=== PATIENT | female | born 1955 | race Hispanic/Latino ===

== ENCOUNTER 2022-04-12 08:35 | Emergency (ER) | payer OTHER ==
--- OUTSIDE RECORDS SUMMARY | 2022-04-12 08:39 | XMS REPORT | Continuity of Care Document ---
:[address] [facility] t Address [address] [place] [address] Dr. Olivera [address] [place] [address] Care Team Providers Name Role Phone Pcp, Does Not Have A Primary Care Physician LANDY K.H. Attending Clinician Unavailable Landy ACOTSA, K.H. Attending Clinician Doctor Unassigned, Name Attending Clinician Unavailable Payers Payer Name Policy Type Policy Number Effective Date Expiration Date S ource Problems Condition Condition Condition Status Onset Resolution Last Treating Co mments Source Name Details Category Date Date Treatment Clinician Date No known No known Disease Unive rs active active ity of problems problems [facility] Allergies, Adverse Reactions, Alerts Allergy Allergy Status Severity Reaction(s) Onset Inactive Treating Comm ents Source Name Type Date Date Clinician NO KNOWN Drug Active Univers ALLERGIE Class ity of S [facility] Social History Social Habit Start Date Stop Date Quantity Comments Source History of Cigarette Smoker Universi ty of tobacco use [facility] Exposure to Not sure University SARS-CoV-2 [facility] (event) [place] Tobacco use and 2021-05-30 2021-05-30 Former user Universi ty of exposure 00:00:00 00:00:00 [facility] Sex [birth year] Universit y of 00:00:00 00:00:00 [facility] Smoking Status Start Date Stop Date Source Unknown if ever smoked Universit y [facility] Former smoker 2021-05-30 00:00:00 2021-05-30 00:00:00 Universi ty [facility] Medications Ordered Filled Start Stop Current Ordering Indication Dosage Frequency Signature Comments Components Source Medication Medication Date Date Medication? Clinician (SIG) Name Name gabapentin 2020-0 Yes 300mg Take 300 Un lamar ER 300 mg 8-25 mg by ity of tablet, 20:40: mouth [place] extended 15 daily. Medical release 24 Branch hr loratadine 2020-0 Yes 10mg Take 10 mg U nivers 10 mg 8-25 by mouth ity of tablet 20:40: daily. [address] gabapentin 2020-0 Yes 300mg Take 300 Un lamar ER 300 mg 8-25 mg by ity of tablet, 20:40: mouth [place] extended 15 daily. Medical release 24 Branch hr loratadine 2020-0 Yes 10mg Take 10 mg U nivers 10 mg 8-25 by mouth ity of tablet 20:40: daily. [address] gabapentin 2020-0 Yes 300mg Take 300 Un lamar ER 300 mg 8-25 mg by ity of tablet, 20:40: mouth [place] extended 15 daily. Medical release 24 Branch hr loratadine 2020-0 Yes 10mg Take 10 mg U nivers 10 mg 8-25 by mouth ity of tablet 20:40: daily. [address] gabapentin 2020-0 Yes 300mg Take 300 Un lamar ER 300 mg 8-25 mg by ity of tablet, 20:40: mouth [place] extended 15 daily. Medical release 24 Branch hr loratadine 2020-0 Yes 10mg Take 10 mg U nivers 10 mg 8-25 by mouth ity of tablet 20:40: daily. [address] gabapentin 2020-0 Yes 300mg Take 300 Un lamar ER 300 mg 8-25 mg by ity of tablet, 20:40: mouth [place] extended 15 daily. Medical release 24 Branch hr loratadine 2020-0 Yes 10mg Take 10 mg U nivers 10 mg 8-25 by mouth ity of tablet 20:40: daily. [address] aspirin 81 2020-0 Yes 81mg Take 81 mg U nivers mg EC 8-25 by mouth ity of tablet 20:39: daily. [address] aspirin 81 1-0 Yes 81mg Take 81 mg U nivers mg EC 8-25 by mouth ity of tablet 20:39: daily. [address] aspirin 81 1-0 Yes 81mg Take 81 mg U nivers mg EC 8-25 by mouth ity of tablet 20:39: daily. [address] aspirin 81 2021-0 Yes 81mg Take 81 mg U nivers mg EC 8-25 by mouth ity of tablet 20:39: daily. [address] aspirin 81 2020-0 Yes 81mg Take 81 mg U nivers mg EC 8-25 by mouth ity of tablet 20:39: daily. [address] tc 2020- No [id number] 43.2mCi 43.2 Univ ers 99m-tetrofo 06-11 millicurie i ty of smin 14:19: 14:19 , [place] ([facility]) 00 :00 Intravenou Medi ryan injection s, ONCE, 1 Bran ch 43.2 dose, Tue millicurie 06/11/21 at 0930, Routine tc 2020- No [id number] 16.4mCi 16.4 Unive rs 99m-tetrofo 06-11 millicurie i ty of smin 13:00: 13:04 , [place] ([facility]) 00 :00 Intravenou Medi ryan injection s, ONCE, 1 Bran ch 16.4 dose, Tue millicurie 06/11/21 at 0815, Routine aspirin 81 0 Yes 81mg Take 81 mg U nivers mg EC 7-15 by mouth ity of tablet 16:04: daily. [address] aspirin 81 2020-0 Yes 81mg Take 81 mg U nivers mg EC 7-15 by mouth ity of tablet 16:04: daily. [address] aspirin 81 2020-0 Yes 81mg Take 81 mg U nivers mg EC 7-15 by mouth ity of tablet 16:04: daily. [address] aspirin 81 2020-0 Yes 81mg Take 81 mg U nivers mg EC 7-15 by mouth ity of tablet 16:04: daily. [address] aspirin 81 2020-0 Yes 81mg Take 81 mg U nivers mg EC 7-15 by mouth ity of tablet 16:04: daily. [address] aspirin 81 2020-0 Yes 81mg Take 81 mg U nivers mg EC 7-15 by mouth ity of tablet 16:04: daily. [address] aspirin 81 2020-0 Yes 81mg Take 81 mg U nivers mg EC 7-15 by mouth ity of tablet 16:04: daily. [place] [facility] atorvastati 0 Yes 20mg Take 20 mg Univers n 20 mg 7-12 by mouth ity of tablet 00:00: daily. Medical Branch metFORMIN 0 Yes 500mg Take 500 Uni vers 500 mg 7-12 mg by ity of tablet 00:00: mouth 2 [place] (two) Medical times Branch daily. metoprolol 0 Yes 25mg Take 25 mg U nivers succinate 7-12 by mouth [place] of XL 25 mg 24 00:[place]: [place]. [place] ramipriL 0 Yes 2.5mg Take 2.5 Univ ers 2.5 mg 7-12 mg by ity of capsule 00:00: mouth daily. Medical Branch atorvastati 0 Yes 20mg Take 20 mg Univers n 20 mg 7-12 by mouth ity of tablet 00:00: daily. Medical Branch metFORMIN 0 Yes 500mg Take 500 Uni vers 500 mg 7-12 mg by ity of tablet 00:00: mouth [place] (two) Medical times [place] daily. metoprolol 0 Yes 25mg Take 25 mg U nivers succinate 7-12 by mouth [place] of XL 25 mg 24 00:00: [place]. [place] ramipriL 0 Yes 2.5mg Take 2.5 Univ ers 2.5 mg 7-12 mg by ity of capsule 00:00: mouth daily. Medical Branch atorvastati 0 Yes 20mg Take 20 mg Univers n 20 mg 7-12 by mouth ity of tablet 00:00: daily. Medical Branch metFORMIN 2020-0 Yes 500mg Take 500 Uni vers 500 mg 7-12 mg by ity of tablet 00:00: mouth [place] (two) Medical times [place] daily. metoprolol 2020-0 Yes 25mg Take 25 mg U nivers succinate 7-12 by mouth it[place] of XL 25 mg 24 00:00: [place]. [place] ramipriL 0 Yes 2.5mg Take 2.5 Univ ers 2.5 mg 7-12 mg by ity of capsule 00:00: mouth daily. Medical Branch atorvastati 2021-0 Yes 20mg Take 20 mg Univers n 20 mg 7-12 by mouth ity of tablet 00:00: daily. Medical Branch metFORMIN 0 Yes 500mg Take 500 Uni vers 500 mg 7-12 mg by ity of tablet 00:00: mouth 2 [place] (two) Medical times [place] daily. metoprolol 0 Yes 25mg Take 25 mg U nivers succinate 7-12 by mouth it[place] of XL 25 mg 24 00:00: [place]. [place] ramipriL 0 Yes 2.5mg Take 2.5 Univ ers 2.5 mg 7-12 mg by ity of capsule 00:00: mouth daily. Medical Branch atorvastati Yes 20mg Take 20 mg Univers n 20 mg 7-12 by mouth ity of tablet 00:00: daily. Medical Branch metFORMIN Yes 500mg Take 500 Uni vers 500 mg 7-12 mg by ity of tablet 00:00: mouth [place] (two) Medical times [place] daily. metoprolol Yes 25mg Take 25 mg U nivers succinate 7-12 by mouth it[place] of XL 25 mg 24 00:00: [place]. [place] ramipriL Yes 2.5mg Take 2.5 Univ ers 2.5 mg 7-12 mg by ity of capsule 00:00: mouth daily. Medical Branch atorvastati Yes 20mg Take 20 mg Univers n 20 mg 7-12 by mouth ity of tablet 00:00: daily. [place] [facility] metFORMIN 0 Yes 500mg Take 500 Uni vers 500 mg 7-12 mg by ity of tablet 00:00: mouth 2 [place] (two) Medical times [place] daily. metoprolol Yes 25mg Take 25 mg U nivers succinate 7-12 by mouth ity of XL 25 mg 24 00:00: [place]. [place] ramipriL 0 Yes 2.5mg Take 2.5 Univ ers 2.5 mg 7-12 mg by ity of capsule 00:00: mouth daily. Medical Branch atorvastati 0 Yes 20mg Take 20 mg Univers n 20 mg 7-12 by mouth ity of tablet 00:00: daily. Medical Branch metFORMIN 2020-0 Yes 500mg Take 500 Uni vers 500 mg 7-12 mg by ity of tablet 00:00: mouth [place] (two) Medical times [place] daily. metoprolol 2020-0 Yes 25mg Take 25 mg U nivers succinate 7-12 by mouth it[place] of XL 25 mg 24 00:00: [place]. [place] ramipriL 0 Yes 2.5mg Take 2.5 Univ ers 2.5 mg 7-12 mg by ity of capsule 00:00: mouth daily. Medical Branch atorvastati 0 Yes 20mg Take 20 mg Univers n 20 mg 7-12 by mouth ity of tablet 00:00: daily. Medical Branch metFORMIN 2020-0 Yes 500mg Take 500 Uni vers 500 mg 7-12 mg by ity of tablet 00:00: mouth [place] (two) Medical times [place] daily. metoprolol 2020-0 Yes 25mg Take 25 mg U nivers succinate 7-12 by mouth ity of XL 25 mg 24 00:00: [place]. [place] ramipriL 0 Yes 2.5mg Take 2.5 Univ ers 2.5 mg 7-12 mg by ity of capsule 00:00: mouth daily. Medical Branch atorvastati 2020-0 Yes 20mg Take 20 mg Univers n 20 mg 7-12 by mouth ity of tablet 00:00: daily. Medical Branch metFORMIN 2020-0 Yes 500mg Take 500 Uni vers 500 mg 7-12 mg by ity of tablet 00:00: mouth [place] (two) Medical times [place] daily. metoprolol 2020-0 Yes 25mg Take 25 mg U nivers succinate 7-12 by mouth it[place] of XL 25 mg 24 00:00: [place]. [place] ramipriL 2020-0 Yes 2.5mg Take 2.5 Univ ers 2.5 mg 7-12 mg by ity of capsule 00:00: mouth daily. Medical Branch atorvastati 2020-0 Yes 20mg Take 20 mg Univers n 20 mg 7-12 by mouth ity of tablet 00:00: daily. Medical Branch metFORMIN 2021-0 Yes 500mg Take 500 Uni vers 500 mg 7-12 mg by ity of tablet 00:00: mouth [place] (two) Medical times Branch daily. metoprolol 0 Yes 25mg Take 25 mg U nivers succinate 7-12 by mouth ity of XL 25 mg 24 00:00: [place]. [place] ramipriL Yes 2.5mg Take 2.5 Univ ers 2.5 mg 7-12 mg by ity of capsule 00:00: mouth 00 daily. Medical Branch atorvastati Yes 20mg Take 20 mg Univers n 20 mg 7-12 by mouth ity of tablet 00:00: daily. [place] [facility] metFORMIN Yes 500mg Take 500 Uni vers 500 mg 7-12 mg by ity of tablet 00:00: mouth [place] (two) Medical times Branch daily. metoprolol Yes 25mg Take 25 mg U nivers succinate 7-12 by mouth ity of XL 25 mg 24 00:00: [place]. [place] tablet [place] ramipriL Yes 2.5mg Take 2.5 Univ ers 2.5 mg 7-12 mg by ity of capsule 00:00: mouth daily. Medical Branch atorvastati Yes 20mg Take 20 mg Univers n 20 mg 7-12 by mouth ity of tablet 00:00: daily. [place] [facility] metFORMIN Yes 500mg Take 500 Uni vers 500 mg 7-12 mg by ity of tablet 00:00: mouth [place] (two) Medical times Branch daily. metoprolol 0 Yes 25mg Take 25 mg U nivers succinate 7-12 by mouth it[place] of XL 25 mg 24 00:00: [place]. [place] 00 [place] [facility] ramipriL Yes 2.5mg Take 2.5 Univ ers 2.5 mg 7-12 mg by ity of capsule 00:00: mouth daily. Medical Branch Vital Signs Vital Name Observation Time Observation Value Comments Source Systolic blood 2021-07-10 20:39:00 123 mm[Hg] Univer sity of pressure [facility] [place] [facility] Diastolic blood 2021-07-10 20:39:00 73 mm[Hg] Unive rsity of pressure [facility] Heart rate 2021-07-10 20:39:00 77 /min Universi ty of [place] Medical [place] Body weight 2021-07-10 20:39:00 73.483 kg Universi ty of [facility] BMI 2021-07-10 20:39:00 28.70 kg/m2 Universi ty of [facility] Oxygen saturation in 2021-07-10 20:39:00 96 /min University of Arterial blood by [facility] Pulse oximetry Branch Systolic blood 2021-05-30 15:34:00 108 mm[Hg] Univer sity of pressure [facility] Diastolic blood 2021-05-30 15:34:00 65 mm[Hg] Unive rsity of pressure [facility] Heart rate 2021-05-30 15:34:00 73 /min Universi ty of [facility] Respiratory rate 2021-05-30 15:34:00 20 /min [facility] Body height 2021-05-30 15:34:00 160 cm Universi ty [facility] [place] [facility] Body weight 2021-05-30 15:34:00 74.118 kg Universi ty [facility] [place] [facility] BMI 2021-05-30 15:34:00 28.95 kg/m2 Universi ty [facility] [place] [facility] Oxygen saturation in 2021-05-30 15:34:00 96 /min University of Arterial blood by [facility] Pulse oximetry Branch Procedures Procedure Date / Time Performed Performing Clinician Missy victoria NM MYOCARDIUM 2021-06-11 15:15:00 Deja Bill [facility] PERFUSION STRESS AND Medical Bra nch REST NM MYOCARDIUM 2021-06-11 15:15:00 Deja Bill [facility] PERFUSION STRESS AND Medical Bra nch REST NM MYOCARDIUM 2021-06-11 15:15:00 Deja Bill [facility] PERFUSION STRESS AND Medical Bra nch REST NM MYOCARDIUM 2021-06-11 15:15:00 Deja Bill [facility] PERFUSION STRESS AND Medical Bra nch REST ASSIGNMENT OF BENEFITS 2021-05-30 15:08:25 Doctor Unassigned, No [facility] Encounters Start End Encounter Admission Attending Care Care Encounter Source Date/Time Date/Time Type Type Clinicians Facility Department ID 2022-07-10 2022-07-10 Outpatient [place] [id number] Univers 15:00:00 15:00:00 [facility] [id number] [id number] Univers 15:24:14 16:02:21 Visit Sendlakeisha Price [id number] ity [place] 4[place]2.7.2.686 [place] [phone] Vt dicms nal [address] [place] [address] 2021-07-10 2021-07-10 Outpatient [place] [id number] Univers 15:30:00 15:30:00 [facility]-07-10 2021-07-10 Outpatient [place] [id number] Univers 15:30:00 15:30:00 SENDIL [id number] [facility] 2021-07-10 2021-07-10 [facility] [id number] Univers 00:00:00 00:00:00 (Out) Deja Price [id number] ity [facility] [id number] [place] [id number] [address] 2021-06-18 2021-06-18 Outpatient [place] [id number] Univers 16:00:00 16:00:00 [facility] [id number] [facility] 2021-06-18 2021-06-18 Outpatient [place] [id number] Univers 16:00:00 16:00:00 [facility]-06-11 2021-06-11 [facility] [id number] Univers 07:43:37 23:59:00 Encounter Deja Price [id number] it[place] of [place] [id number] [place] [id number] [facility] 805 Branch 2021-06-11 2021-06-11 [facility] [id number] Univers 07:43:25 23:59:00 Encounter Sendil Choco Price [id number] ity of [place] 4.2.7.2.686 [facility] [id number] [facility] 805 [place] 2021-06-11 2021-06-11 [facility] [id number] Univers 07:43:12 23:59:00 Encounter Sendil Choco Price [id number] ity of [place] [id number] [place] [address] [phone] [place] 853995 [place] 2021-06-11 2021-06-11 Outpatient [place] [id number] Univers 08:30:00 08:30:00 SENDIL ity [facility] 2021-06-11 2021-06-11 Outpatient [place] [id number] Univers 08:00:00 08:00:00 SENDIL [id number] ity [facility] 2021-06-11 2021-06-11 [facility] [id number] Univers 07:42:57 07:42:57 Encounter Deja Price [id number] ity of [place] 4.2.7.2.686 [facility] [id number] [facility] 805 [place] 2021-05-30 2021-05-30 Office [facility] [id number] Univers 10:10:05 11:17:32 Visit Deja Price [id number] ity of [place] [id number] [facility] Professio [id number] Vt dical nal 059 Branch [facility] 2021-05-30 2021-05-30 Outpatient [place] [id number] Univers 10:30:00 10:30:00 SENDIL ity [facility] 2021-05-30 2021-05-30 Orders Doctor ROBERT 1.2.840.114 [id number] 00:00:00 00:00:00 Only Unassigned, CHELE 350.1.13.10 ity of [facility] 4.2.7.2.686 David as [id number] [address] Results Test Description Test Time Test Comments Results Result Comments Source LIPID PANEL 2021-12-02 00:17:06 Test Item Value Reference Range Interpretation Comme nts CHOLESTEROL (test code = 2210) 152 MG/DL <200 TRIGLYCERIDES (test code = 2232) 110 MG/DL <150 HDL CHOLESTEROL (test code = 58 MG/DL >39 2219) CALC LDL CHOL (test code = 2237) 74 MG/DL <100 NOTE: CALCULATED LDL IS BASED ON RANJAN-LARRY METHOD WHICHINCLUDES A DJUSTABLE TRIGLYCERIDE:VL DL CHOLESTEROL RATIO.THIS FACT OR VARIES BY MEASURED TRIGLY CERIDE AND NON-HDLCHOLESTE ROL CONCENTRATIONS WITH INCREASED CALCULATED LDL SEENIN HIGHER T RIGLYCERIDE OR LOWER NON-HDL S PECIMENS. FOR MOREINFORMATION , SEE CLIENT ANNOUNCEMENT AT [email or web address] RISK RATIO LDL/HDL (test code = 1.28 RATIO <3.22 2237) COMPREHENSIVE METABOLIC [id number] 00:17:06 Test Item Value Reference Range Interpretation Comments GLUCOSE (test code = 127 MG/DL 70-99 H 2216) BUN (test code = 16 MG/DL 8-23 2207) CREATININE (test 0.73 MG/DL 0.60-1.30 code = 2214) eGFR (2020 CKD-EPI) 91 >60 (test code = 63958) ML/MIN/1.73 CALC BUN/CREAT (test 22 RATIO 6-28 code = 2235) SODIUM (test code = 144 MEQ/L 570-654 7213) POTASSIUM (test code 4.6 MEQ/L 3.5-5.4 = 2227) CHLORIDE (test code 105 MEQ/L 95-107 = 221) CARBON DIOXIDE (test 27 MEQ/L 19-31 code = 2206) CALCIUM (test code = 9.8 MG/DL 8.5-10.5 2208) PROTEIN, TOTAL (test 7.5 G/DL 6.1-8.3 code = 2229) ALBUMIN (test code = 4.5 G/DL 3.5-5.2 2200) CALC GLOBULIN (test 3.0 G/DL 1.9-3.7 code = 2240) CALC A/G RATIO (test 1.5 RATIO 1.0-2.6 code = 2234) BILIRUBIN, TOTAL 0.4 MG/DL See_Comment [Automated message] (test code = 220) The syste m which generated this result transmitted ref erence range: <=1.2. T he reference range was not used to int erpret this result as normal/abnormal . ALKALINE PHOSPHATASE 70 U/L 40-140 (test code = 220) AST (test code = 17 U/L 9-40 2217) ALT (test code = 19 U/L 5-40 UNLE SS 2218) OTHERWISE INDIC ATED, ALL TESTING PER FORMED ATCLINICAL PATH [facility]. [address] [place] [address] LABORATORY DIRE CTOR: MARINA OTTO M.D. CLIA NUMBER [id number] CAP ACCREDITATION N O. [id number] HEMOGLOBIN [id number] 05:27:33 Test Item Value Reference Range Interpretation Comments HEMOGLOBIN A1c (test 6.7 % 4.2-5.6 H CROATIAN DIABETES code = 53860) ASSOCIATION IDELINES FOR HGB A1C: PREDIABETES/INC REASED RISK . . . . . . . 5.7 -6.4% DIAGNOSIS OF D IABETES . . . . . . . . . > =6.5% WITH CONFIRM ATION OR APPROPRIATE SYM PTOMS NOTE: ASSAY MAY BE AFFECTED BY HEMOGLOBINOP ATHIES (SICKLE KIM L ANEMIA, S-C DISEASE, OTHERS ) OR ARTIFICIALLY LO WERED BY DECREASED RED C ELL SURVIVAL (HEMOLYTIC ANEM IAS, BLOOD LOSS, ETC.) . CONSIDER ALTERNATE TESTI NG OR LABORATORY CONS ULTATION. CBC W/AUTO DIFF WITH [id number] 03:37:49 Test Item Value Reference Range Interpretation Comments WBC (test code = 4.0 K/UL 3.5-11.0 1001) RBC (test code = 4.33 M/UL 3.80-5.40 1002) HEMOGLOBIN (test code 13.3 G/DL 11.5-15.5 = 1003) HEMATOCRIT (test code 38.6 % 34.0-45.0 = 1004) MCV (test code = 89.1 fL 80.0-99.0 1005) MCH (test code = 30.7 PG 25.0-33.0 1006) MCHC (test code = 34.5 G/DL 31.0-36.0 1007) RDW (test code = 12.4 % 11.5-15.0 1038) NEUTROPHILS (test 46.9 % code = 1008) LYMPHOCYTES (test 40.1 % code = 1010) MONOCYTES (test code 7.9 % = 1011) EOSINOPHILS (test 3.7 % code = 1012) BASOPHILS (test code 1.2 % = 1013) IMMATURE GRANYLOCYTES 0.2 % (test code = 1036) NUCLEATED RBCS (test 0.0 /100 See_Comment [Autom ated code = 1065) WBC'S message] The sy stem which generated this result transmitted reference range : 0.0. The refere nce range was not u sed to interpret th is result as normal/abnormal . PLATELET COUNT (test 250 K/UL 130-400 code = 1015) ABSOLUTE NEUTROPHILS 1.89 K/UL 1.50-7.50 (test code = 1066) ABSOLUTE LYMPHOCYTES 1.62 K/UL 1.00-4.00 (test code = 1067) ABSOLUTE MONOCYTES 0.32 K/UL 0.20-1.00 (test code = 1068) ABSOLUTE EOSINOPHILS 0.15 K/UL 0.00-0.50 (test code = 1040) ABSOLUTE BASOPHILS 0.05 K/UL 0.00-0.20 (test code = 1069) ABS IMMATURE 0.01 K/UL 0.00-0.10 GRANULOCYTES (test code = 1020) ABS NUCLEATED RBCS 0.00 K/UL 0.00-0.11 (test code = 58893) NM MYOCARDIUM PERFUSION STRESS AND [id number] 21:38:161. ?The patient's electrocardiogram is nonischemic.2. ?The patient's clinical response is asymptomatic for angina. 3. ?Overall left ventricular systolic function is normal.4. ?SPECT imaging reveals normal uptake of radiopharmaceutical agents inall of wall segments in both stress and rest images5. ?No reversible defect noted. I was present for the stress portion of the study. [facility] Lexiscan Stress Test Report PROCEDURE:After obtaining witnessed informed consent, patient underwent a Regadenosonnuclear stress test using a one-day protocol. The patient was administered0.4 mg. Regadenoson over 10 seconds intravenously. Myocardial perfusionSPECT imaging was performed at rest after the intravenous injection of 16.4 mCi of Technetium 99m Tetrofosmin. During the stress portion of the test43.2 mCi of Technetium 99m Tetrofosmin was injected intravenously at 10secondsafter the Regadenoson infusion at peak pharmacologic effect. Thestress gated SPECT study was acquired. Both stress and rest images wereacquired with patient being supine. Images were processed according to ASNguidelines. Short, horizontal long, long axis slices, raw data cines, polarplot, and wall motion analysis were reviewed. FINDINGS:* ?During the Regadenoson administration, no symptoms were noted. * ?Please refer ECG report for full details. * ?The overall technical quality of the study is good. ?* ?Raw cine data reveals no significant abnormality. * ?SPECT imaging reveals normal uptake of radiopharmaceutical agents in allof wall segments in both stress and rest images. * ?Post-stress LV end-diastolic volume is 47 ml and LV end-systolic volumeis 13 ml. * ?The left ventricle ejection fraction is calculated to be 73 % at stressand 71% at rest. * ?Regional wall motion analysis of the left ventricle reveals is normal. * ?TID: 1.05 [facility], Radiant Results Inft User - 06/11/2021 4:39 PM CDT [facility] Lexiscan Stress Test ReportPROCEDURE:After obtaining witnessed informed consent, patient underwent a Regadenosonnuclear stress test using a one-day protocol. The patient was administered0.4 mg. Regadenoson over 10 seconds intravenously. Myocardial perfusionSPECT imaging was performed at rest after the intravenous injection of 16.4 mCi of Technetium 99m Tetrofosmin. During the stress portion of the test43.2mCi of Technetium 99m Tetrofosmin was injected intravenously at 10seconds after the Regadenoson infusion at peak pharmacologic effect. Thestress gated SPECT study was acquired. Both stress and rest images wereacquired with patient being supine. Images were processed according to [facility]EN[facility]idelines. Short, horizontal long, long axis slices, raw data cines, polarplot, and wall motion analysis were reviewed. FINDINGS:* During the Regadenoson administration, no symptoms were noted. * Please refer ECG report for full details. * The overall technical quality of the study is good. * Raw cine data revealsno significant abnormality. * SPECT imaging reveals normal uptake of radiopharmaceutical agents in allof wall segments in both stress and rest images. * Post-stress LV end-diastolic volume is 47 ml and LV end-systolic volumeis 13 ml. * The left ventricle ejection fraction is calculated to be 73 % at stressand 71% at rest. * Regional wall motion analysis of the left ventricle reveals is normal. *TID: [id number]. The patient's electrocardiogram is nonischemic.2. The patient's clinical response is asymptomatic for angina. 3. Overall left ventricular systolic function is normal.4. SPECT imaging reveals normal uptake of radiopharmaceutical agents inall of wall segments in both stress andrest images5. No reversible defect noted. I was present for the stress portion of the study.[facility]
[2022-04-12 10:10] LABS: Absolute Lymphocytes (CBC) 1.6 K/uL (0.7-4.9); Hematocrit 37.5 % (36.0-45.0); Lymphocytes % 24.7 % (15.3-44.8); RBC Red Blood Cell Count 4.24 M/uL (3.86-4.86)
[2022-04-12 10:30] LABS: Urine Bacteria <20 /HPF (<20); Urine RBC <5 /HPF (NONE SEEN)
[2022-04-12 10:31] LABS: Albumin 3.7 g/dL (3.4-5.0); Bilirubin Total 0.4 mg/dL (0.2-1.0); Potassium 3.9 mmol/L (3.5-5.1); Protein, Total 7.5 g/dL (6.4-8.2)
--- NOTE | 2022-04-12 11:17 | RAD REPORT ---
EXAM DESCRIPTION: CT - Stone Protocol - 04/12/2022 11:01 am CLINICAL HISTORY: Abdominal pain. Back pain COMPARISON: None. TECHNIQUE: Computed axial tomography of the abdomen pelvis was obtained without oral or IV contrast. Lack of IV and oral contrast limits evaluation of solid organs, bowel, and vessels. Coronal reformat christian images were obtained and reviewed. All CT scans are performed using dose optimization technique as appropriate and may include automated exposure control or mA/KV adjustment according to patient size. FINDINGS: A renal calculus is not seen. An ureteral calculus is not noted. A bladder calculus is not present. The liver, spleen, pancreas and adrenals appear grossly normal There is no evidence of diverticulitis. The appendix appears normal Small umbilical hernia. Hysterectomy. 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 Moderate amount stool within the colon IMPRESSION: Negative for a genitourinary calculus
[2022-04-12] MEDS ORDERED: IBUPROFEN 400 MG TAB ONE (12:08)
[2022-04-12] MEDS ORDERED: LIDOCAINE 4% PATCH ONE (12:08)
--- NOTE | 2022-04-12 13:05 | ER ---
Nurse's Notes [facility] Name: Nataliia Singer Age: 66 yrs Sex: Female : 1955 Arrival Date: 04/12/2022 Time: 08:41 Bed 11 Private MD: Diagnosis: Low back pain-left Presentation: 04/12 09:17 Chief complaint: Patient states: Left bicep tingling since yesterday "Feels like I jl7 slept on it." Left low back pain, non radiating since yesterday. Coronavirus screen: At this time, the client does not indicate any symptoms associated with coronavirus-19. Ebola Screen: No symptoms or risks identified at this time. Initial Sepsis Screen: Does the patient meet any 2 criteria? No. Patient's initial sepsis screen is negative. Does the patient have a suspected source of infection? No. Patient's initial sepsis screen is negative. Risk Assessment: Do you want to hurt yourself or someone else? Patient reports no desire to harm self or others. Onset of symptoms was April 11, 2022. 09:17 Method Of Arrival: Ambulatory [facility] 09:17 Acuity: CHRISTINA 3 jl7 Triage Assessment: 09:21 General: Appears in no apparent distress. uncomfortable, Behavior is calm, cooperative, jl7 appropriate for age. Pain: Complains of pain in left low back Pain does not radiate. Pain currently is 9 out of 10 on a pain scale. Historical: - Allergies: 09:21 No Known Allergies; jl7 - PMHx: 09:21 Hypertensive disorder; Diabetes mellitus; jl7 - Immunization history:: Adult Immunizations unknown. - Social history:: Smoking status: unknown. Screenin:06 Abuse screen: Denies threats or abuse. Denies injuries from another. Nutritional ld1 screening: No deficits noted. Tuberculosis screening: No symptoms or risk factors identified. Fall Risk None identified. Assessment: 12:06 General: Appears in no apparent distress. comfortable, Behavior is calm, cooperative, ld1 appropriate for age. Pain: Complains of pain in left low back Pain does not radiate. Pain currently is 8 out of 10 on a pain scale. Quality of pain is described as throbbing. Neuro: Level of Consciousness is awake, alert, obeys commands, Oriented to person, place, time, situation. Cardiovascular: Capillary refill < 3 seconds Patient's skin is warm and dry. Respiratory: Airway is patent Respiratory effort is even, unlabored. GI: Abdomen is flat, non-distended. : No signs and/or symptoms were reported regarding the genitourinary system. EENT: No signs and/or symptoms were reported regarding the EENT system. Derm: No signs and/or symptoms reported regarding the dermatologic system. Musculoskeletal: Reports pain in back. Vital Signs: 09:17 BP 134 / 81; Pulse 73; Resp 17; Temp 97.3; Pulse Ox 98% ; Weight 78.02 kg; Pain 9/10; jl7 09:45 BP 134 / 84; Pulse 75; Resp 16; Pulse Ox 100% on R/A; kj1 12:06 BP 129 / 83; Pulse 74; Resp 18; Pulse Ox 100% on R/A; ld1 ED Course: 08:41 Patient arrived in ED. am2 09:21 Triage completed. jl7 09:21 Arm band placed on right wrist. jl7 09:24 Radames Alexander PA is PHCP. cp 09:24 Romero Bartlett MD is Attending Physician. cp 09:45 Initial lab(s) drawn, by me, sent to lab. Inserted saline lock: 20 gauge in left kj1 antecubital area, using aseptic technique. Blood collected. 09:49 Urine Microscopic Only Sent. mb7 11:02 CT Stone Protocol In Process Unspecified. EDMS 12:00 Nissa Shaw, RN is Primary Nurse. ld1 12:06 Patient has correct armband on for positive identification. Placed in gown. Bed in low ld1 position. Call light in reach. Side rails up X2. Pulse ox on. NIBP on. drum worker on. Door closed. Noise minimized. Warm blanket given. 12:06 No provider procedures requiring assistance completed. ld1 13:28 IV discontinued, intact, bleeding controlled, No redness/swelling at site. ld1 Administered Medications: 12:05 Drug: Lidoderm Patch 5 % (700 mg/patch) 1 patches Route: Topical; Site: affected area; ld1 12:11 Follow up: Response: No adverse reaction ld1 12:05 Drug: Ibuprofen 800 mg Route: PO; ld1 12:12 Follow up: Response: No adverse reaction ld1 Medication: 12:06 VIS not applicable for this client. ld1 Outcome: 13:04 Discharge ordered by . kendell 13:28 Discharged to home ambulatory. ld1 13:28 Condition: stable 13:28 Discharge instructions given to patient, Instructed on discharge instructions, follow up and referral plans. medication usage, Demonstrated understanding of instructions, follow-up care, medications, Prescriptions given X 3. 13:28 Patient left the ED. ld1 Signatures: Dispatcher [employer] EDMS Radames Alexander PA PA cp Leal, Jahala RN RN jl7 Chanelle Manjarrez Kandis kj1 Nissa Shaw RN RN ld1 [place] mb7 Corrections: (The following items were deleted from the chart) 09:59 09:59 BP 134 / 84; Pulse 75bpm; Resp 16bpm; Pulse Ox 100% RA; kj1 kj1
--- NOTE | 2022-04-12 13:05 | EDPHYS ---
Physician Documentation [facility] Name: Nataliia Singer Age: 66 yrs Sex: Female : 1955 Arrival Date: 04/12/2022 Time: 08:41 Bed 11 Private MD: ED Physician Romero Bartlett HPI: 04/12 09:25 This 66 yrs old Female presents to ER via Ambulatory with complaints of Flank Pain, Low cp Back Pain. 04/11 09:25 Associated signs and symptoms: Pertinent negatives: diarrhea, dizziness, dysuria, cp fever, urinary frequency, hematuria, pain radiating to the lower extremities, vomiting. Severity of pain: in the emergency department the pain is unchanged despite home interventions. 04/12 09:25 The patient complains of pain in the left low back. The pain does not radiate. Onset: cp The symptoms/episode began/occurred yesterday. 09:25 Patient reports tingling in left bicep yesterday that is now resolved. Denies trauma. cp Historical: - Allergies: 09:21 No Known Allergies; jl7 - PMHx: 09:21 Hypertensive disorder; Diabetes mellitus; jl7 - Immunization history:: Adult Immunizations unknown. - Social history:: Smoking status: unknown. ROS: 09:30 Back: Positive for pain at rest, pain with movement, of the left low back, Negative for cp radiated pain. 09:30 Eyes: Negative for injury, pain, redness, and discharge. cp 09:30 Constitutional: Negative for chills, fever, poor PO intake. 09:30 Neck: Negative for pain with movement, pain at rest, stiffness. 09:30 Cardiovascular: Negative for chest pain. 09:30 Respiratory: Negative for cough, shortness of breath, wheezing. 09:30 Abdomen/GI: Negative for abdominal pain, vomiting, diarrhea, constipation. 09:30 : Negative for urinary symptoms. 09:30 Skin: Negative for rash. 09:30 Neuro: Negative for altered mental status, headache, numbness, weakness. 09:30 All other systems are negative. Exam: 09:35 Constitutional: The patient appears in no acute distress, alert, awake, non-toxic, well cp developed, well nourished. 09:35 Head/Face: Normocephalic, atraumatic. cp 09:35 Neck: ROM/movement: is normal, is supple, without pain, no range of motions limitations. 09:35 Chest/axilla: Inspection: normal. 09:35 Cardiovascular: Rate: normal, Rhythm: regular, Edema: is not appreciated, JVD: is not appreciated. 09:35 Respiratory: the patient does not display signs of respiratory distress, Respirations: normal, no use of accessory muscles, no retractions, labored breathing, is not present, Breath sounds: are clear throughout, no decreased breath sounds, no stridor, no wheezing. 09:35 Abdomen/GI: Inspection: abdomen appears normal, Palpation: abdomen is soft and non-tender, in all quadrants. 09:35 Back: pain, that is mild, of the left low back, ROM is painful, with flexion, mild. CVA tenderness, is absent, vertebral tenderness, is not appreciated. 09:35 Skin: cellulitis, is not appreciated, no rash present. 09:35 Neuro: Motor: moves all fours, strength is normal, Sensation: is normal, Gait: is steady, at a normal pace, without difficulty. Vital Signs: 09:17 BP 134 / 81; Pulse 73; Resp 17; Temp 97.3; Pulse Ox 98% ; Weight 78.02 kg; Pain 9/10; jl7 09:45 BP 134 / 84; Pulse 75; Resp 16; Pulse Ox 100% on R/A; kj1 12:06 BP 129 / 83; Pulse 74; Resp 18; Pulse Ox 100% on R/A; ld1 MDM: 09:35 Differential diagnosis: nephrolithiasis, pyelonephritis, UTI, strain. cp 12:07 Patient medically screened. cp 13:04 Data reviewed: vital signs, nurses notes, lab test result(s), radiologic studies, CT cp scan. 13:04 Counseling: I had a detailed discussion with the patient and/or guardian regarding: the cp historical points, exam findings, and any diagnostic results supporting the discharge/admit diagnosis, lab results, radiology results, the need for outpatient follow up, a family practitioner, to return to the emergency department if symptoms worsen or persist or if there are any questions or concerns that arise at home. 13:04 Response to treatment: the patient's symptoms have markedly improved after treatment, cp and as a result, I will discharge patient. 04/12 09:25 Order name: CBC with Diff; Complete Time: 12:07 cp 04/12 12:07 Interpretation: Reviewed. cp 04/12 09:25 Order name: CMP; Complete Time: 12:07 cp 04/12 12:07 Interpretation: Normal except: CL 109; GLUC 128; GFR 83; AST 11; A/G 1.0; GLOB 3.8. cp 04/12 09:25 Order name: Lipase; Complete Time: 12:07 cp 04/12 09:25 Order name: Urine Microscopic Only; Complete Time: 12:07 cp 04/12 09:25 Order name: CT Stone Protocol; Complete Time: 12:07 cp 04/12 09:25 Order name: IV Saline Lock; Complete Time: 11:57 cp 04/12 09:25 Order name: Labs collected and sent; Complete Time: 11:57 cp 04/12 09:25 Order name: Urine Dipstick-Ancillary (obtain specimen); Complete Time: 09:49 cp Administered Medications: 12:05 Drug: Lidoderm Patch 5 % (700 mg/patch) 1 patches Route: Topical; Site: affected area; ld1 12:11 Follow up: Response: No adverse reaction ld1 12:05 Drug: Ibuprofen 800 mg Route: PO; ld1 12:12 Follow up: Response: No adverse reaction ld1 Disposition: 15:24 Co-signature as Attending Physician, Romero Bartlett MD I agree with the assessment and kdr plan of care. Disposition Summary: 04/12/22 13:04 Discharge Ordered Location: Home cp Problem: new cp Symptoms: have improved cp Condition: Stable cp Diagnosis - Low back pain - left cp Followup: cp - With: Private Physician - When: 2 - 3 days - Reason: Recheck today's complaints Discharge Instructions: - Discharge Summary Sheet cp - Acute Back Pain, Adult cp - Heat Therapy cp - Back Exercises cp Forms: - Medication Reconciliation Form cp - Thank You Letter cp - Antibiotic Education cp - Prescription Opioid Use cp Prescriptions: - Lidoderm 5 % Topical adhesive patch,medicated - apply 1 patch by TOPICAL route once daily; 20 patch; Refills: 0, Product cp Selection Permitted - Cyclobenzaprine 10 mg Oral Tablet - take 1 tablet by ORAL route every 8 hours As needed; 20 tablet; Refills: 0, cp Product Selection Permitted - Diclofenac Sodium 75 mg Oral tablet,delayed release (DR/EC) - take 1 tablet by ORAL route 2 times per day; 20 tablet; Refills: 0, Product cp Selection Permitted Signatures: Dispatcher [employer] Romero Blair MD MD kdr Page, Corey, PA PA cp Leal, Jahala RN RN jl7 Nissa Shaw RN RN ld1 Corrections: (The following items were deleted from the chart) 04/13 13:23 13:21 Back: Positive for pain at rest, pain with movement, of the left low back, cp cp
[2022-04-12 13:33] VITALS: TEMP 97.3
[2022-04-12 13:34] VITALS: O2SAT 100
[2022-04-12 13:35] VITALS: BP 129/83
== END 2022-04-12 13:28 | disposition home or self-care (01) ==
LOC: ER 08:35
DX: M54.50 Low back pain, unspecified (principal); E11.9 Type 2 diabetes mellitus without complications; I10 Essential (primary) hypertension
CPT/HCPCS: 85025; 36415; 81015; 83690; 80053; 76377; 74176; 99284; J2001

== ENCOUNTER 2022-12-26 12:38 | Emergency (ER) | payer OTHER ==
--- OUTSIDE RECORDS SUMMARY | 2022-12-26 12:56 | XMS REPORT | Continuity of Care Document ---
:1955 Author Organization [facility] t Address [address] [place] [address] Care Team Providers Name Role Phone PCP, PATIENT DOES NOT HAVE A Primary Care Physician ROBYN Del Angel Attending Clinician Unavailable Robyn Bill MD Attending Clinician Doctor Unassigned, Jewell Attending Clinician Unavailable Payers Payer Name Policy Type Policy Number Effective Date Expiration Date Suraj chicas MEDICARE PART A [id number] 2021 \T\ B 00:00:00 Problems Condition Condition Condition Status Onset Resolution Last Treating Co mments Source Name Details Category Date Date Treatment Clinician Date No known No known Disease Unive rs active active ity of problems problems [facility] Allergies, Adverse Reactions, Alerts Allergy Allergy Status Severity Reaction(s) Onset Inactive Treating Comm ents Source Name Type Date Date Clinician NO KNOWN Drug Active Univers ALLERGIE Class ity of S [facility] Social History Social Habit Start Date Stop Date Quantity Comments Source History of Cigarette Smoker Universi ty of tobacco use [facility] Exposure to Not sure University SARS-CoV-2 [facility] [place] [facility] (event) [place] Tobacco use and 2021-05-30 2021-05-30 Former user Universi ty of exposure 00:00:00 00:00:00 [facility] Sex [birth year] Universit [facility] of 00:00:00 00:00:00 [facility] Smoking Status Start Date Stop Date Source Unknown if ever smoked Universit y [facility] Former smoker 2021-05-30 00:00:00 2021-05-30 00:00:00 [facility] [place] [facility] Medications Ordered Filled Start Stop Current Ordering Indication Dosage Frequency Signature Comments Components Source Medication Medication Date Date Medication? Clinician (SIG) Name Name TAKE 1 2021-11 No CAPSULE BY 0-04 MOUTH THREE 00:00: TIMES A DAY 00 START WITH TWICE DAILY FOR THE FIRST FEW DAYS ERYTHROMYCI 2021-0 No N OP 0.5% 08-14 OIN 00:00: 00 TAKE 2 2021-0 No 100 CAPSULES 8-10 EVERY 8 00:00: HOURS 00 NEEDED. TAKE 2 2-0 No 250 TABLETS ON THEN 00:00: TAKE 1 00 TABLET A DAY FOR 4 DAYS. TAKE 2 2-0 No 250 TABLETS ON THEN 00:00: TAKE 1 00 TABLET A DAY FOR 4 DAYS. TAKE 2 2-0 No 250 TABLETS ON THEN 00:00: TAKE 1 00 TABLET A DAY FOR 4 DAYS. lidocaine 5 2021-0 No 1% % topical 6-18 patch 00:00: 00 metoprolol 2-0 No 1mg succinate 6-18 ER 25 mg 00:00: tablet,exte 00 nded release 24 hr metformin 2-0 No 5mg 500 mg 6-18 tablet 00:00: 00 atorvastati 2022-0 No 1mg n 20 mg 6-18 tablet 00:00: 00 cyclobenzap 2022-0 No 1mg rine 5 mg 6-18 tablet 00:00: 00 ramipril 2022-0 No 1mg 2.5 mg 6-18 capsule 00:00: 00 lidocaine 5 2-0 No 1% % topical 6-18 patch 00:00: 00 metoprolol 2022-0 No 1mg succinate 6-18 ER 25 mg 00:00: tablet,exte 00 nded release 24 hr metformin 2022-0 No 5mg 500 mg 6-18 tablet 00:00: 00 atorvastati 2022-0 No 1mg n 20 mg 6-18 tablet 00:00: 00 cyclobenzap 2022-0 No 1mg rine 5 mg 6-18 tablet 00:00: 00 ramipril 2022-0 No 1mg 2.5 mg 6-18 capsule 00:00: 00 lidocaine 5 2-0 No 1% % topical 6-18 patch 00:00: 00 metoprolol 2022-0 No 1mg succinate 6-18 ER 25 mg 00:00: tablet,exte 00 nded release 24 hr metformin 2022-0 No 5mg 500 mg 6-18 tablet 00:00: 00 atorvastati 2022-0 No 1mg n 20 mg 6-18 tablet 00:00: 00 cyclobenzap 2022-0 No 1mg rine 5 mg 6-18 tablet 00:00: 00 ramipril 2022-0 No 1mg 2.5 mg 6-18 capsule 00:00: 00 lidocaine 5 2022-0 No 1% % topical 6-18 patch 00:00: 00 metoprolol 2022-0 No 1mg succinate 6-18 ER 25 mg 00:00: tablet,exte 00 nded release 24 hr metformin 2022-0 No 5mg 500 mg 6-18 tablet 00:00: 00 atorvastati 2022-0 No 1mg n 20 mg 6-18 tablet 00:00: 00 cyclobenzap 2022-0 No 1mg rine 5 mg 6-18 tablet 00:00: 00 ramipril 2022-0 No 1mg 2.5 mg 6-18 capsule 00:00: 00 erythromyci 2022-0 No 1(0.5 n 5 mg/gram 4-28 %) (0.5 %) eye 00:00: ointment 00 prednisone 2-0 No 1mg 10 mg 4-28 tablet 00:00: 00 Dose 2022-0 No Unknown 4-28 00:00: 00 Dose 2022-0 No Unknown 4-28 00:00: 00 Dose 2022-0 No Unknown 4-28 00:00: 00 Dose 2022-0 No Unknown 4-28 00:00: 00 Dose 2022-0 No Unknown 4-28 00:00: 00 Dose 2022-0 No Unknown 4-28 00:00: 00 Dose 2022-0 No Unknown 4-28 00:00: 00 Dose 2022-0 No Unknown 4-28 00:00: 00 erythromyci 2022-0 No 1(0.5 n 5 mg/gram 4-28 %) (0.5 %) eye 00:00: ointment 00 prednisone 2022-0 No 1mg 10 mg 4-28 tablet 00:00: 00 Dose 2022-0 No Unknown 4-28 00:00: 00 Dose 2022-0 No Unknown 4-28 00:00: 00 Dose 2-0 No Unknown 4-28 00:00: 00 Dose 2-0 No Unknown 4-28 00:00: 00 Dose 2021-0 No Unknown 4-28 00:00: 00 Dose 2-0 No Unknown 4-28 00:00: 00 Dose 2-0 No Unknown 4- 00:00: 00 Dose 2-0 No Unknown 4- 00:00: 00 erythromyci 2021-0 No 1(0.5 n 5 mg/gram 4-28 %) (0.5 %) eye 00:00: ointment 00 prednisone 2021-0 No 1mg 10 mg 4-28 tablet 00:00: 00 Dose 2021-0 No Unknown 4- 00:00: 00 Dose 2021-0 No Unknown 4- 00:00: 00 Dose 2021-0 No Unknown 4- 00:00: 00 Dose 2-0 No Unknown 4- 00:00: 00 Dose 2-0 No Unknown 4- 00:00: 00 Dose 2021-0 No Unknown 4- 00:00: 00 Dose 2021-0 No Unknown 4- 00:00: 00 Dose 2-0 No Unknown 4- 00:00: 00 erythromyci 2021-0 No 1(0.5 n 5 mg/gram 4-28 %) (0.5 %) eye 00:00: ointment 00 prednisone 2021-0 No 1mg 10 mg 4-28 tablet 00:00: 00 Dose 2-0 No Unknown 4-28 00:00: 00 Dose 2-0 No Unknown 4- 00:00: 00 Dose 2-0 No Unknown 4-28 00:00: 00 Dose 2-0 No Unknown 4-28 00:00: 00 Dose 2-0 No Unknown 4-28 00:00: 00 Dose 2-0 No Unknown 4-28 00:00: 00 Dose 2021-0 No Unknown 4-28 00:00: 00 Dose 2-0 No Unknown 4-28 00:00: 00 loratadine 2-0 No 1mg 10 mg 1-10 tablet 00:00: 00 metoprolol 2-0 No 1mg succinate 1-10 ER 25 mg 00:00: tablet,exte 00 nded release 24 hr metformin 2022-0 No 5mg 500 mg 1-10 tablet 00:00: 00 atorvastati 2022-0 No 1mg n 20 mg 1-10 tablet 00:00: 00 Flonase 2022-0 No 1mcg/ac Allergy 1-10 tuation Relief 50 00:00: mcg/actuati 00 on nasal spray,suspe nsion gabapentin 2022-0 No 1mg 300 mg 1-10 capsule 00:00: 00 ramipril 2022-0 No 1mg 2.5 mg 1-10 capsule 00:00: 00 loratadine 2022-0 No 1mg 10 mg 1-10 tablet 00:00: 00 metoprolol 2022-0 No 1mg succinate 1-10 ER 25 mg 00:00: tablet,exte 00 nded release 24 hr metformin 2022-0 No 5mg 500 mg 1-10 tablet 00:00: 00 atorvastati 2022-0 No 1mg n 20 mg 1-10 tablet 00:00: 00 Flonase 2022-0 No 1mcg/ac Allergy 1-10 tuation Relief 50 00:00: mcg/actuati 00 on nasal spray,suspe nsion gabapentin 2022-0 No 1mg 300 mg 1-10 capsule 00:00: 00 ramipril 2022-0 No 1mg 2.5 mg 1-10 capsule 00:00: 00 loratadine 2022-0 No 1mg 10 mg 1-10 tablet 00:00: 00 metoprolol 2022-0 No 1mg succinate 1-10 ER 25 mg 00:00: tablet,exte 00 nded release 24 hr metformin 2022-0 No 5mg 500 mg 1-10 tablet 00:00: 00 atorvastati 2022-0 No 1mg n 20 mg 1-10 tablet 00:00: 00 Flonase 2022-0 No 1mcg/ac Allergy 1-10 tuation Relief 50 00:00: mcg/actuati 00 on nasal spray,suspe nsion gabapentin 2022-0 No 1mg 300 mg 1-10 capsule 00:00: 00 loratadine 2022-0 No 1mg 10 mg 1-10 tablet 00:00: 00 metoprolol 2022-0 No 1mg succinate 1-10 ER 25 mg 00:00: tablet,exte 00 nded release 24 hr metformin 2-0 No 5mg 500 mg 1-10 tablet 00:00: 00 atorvastati 2-0 No 1mg n 20 mg 1-10 tablet 00:00: 00 Flonase 2-0 No 1mcg/ac Allergy 1-10 tuation Relief 50 00:00: mcg/actuati 00 on nasal spray,suspe nsion gabapentin 2021-0 No 1mg 300 mg 1-10 capsule 00:00: 00 ramipril 2-0 No 1mg 2.5 mg 1-10 capsule 00:00: 00 ramipril 2-0 No 1mg 2.5 mg 1-10 capsule 00:00: 00 gabapentin 1-0 Yes 300mg Take 300 Un lamar ER 300 mg 8-25 mg by ity of tablet, 20:40: mouth [place] extended 15 daily. Medical release 24 Branch hr loratadine 2020-0 Yes 10mg Take 10 mg U nivers 10 mg 8-25 by mouth ity of tablet 20:40: daily. [place] [address] Medical Branch gabapentin 2020-0 Yes 300mg Take 300 Un lamar ER 300 mg 8-25 mg by ity of tablet, 20:40: mouth [place] extended 15 daily. Medical release 24 Branch hr loratadine 2020-0 Yes 10mg Take 10 mg U nivers 10 mg 8-25 by mouth ity of tablet 20:40: daily. [address] Branch gabapentin 1-0 Yes 300mg Take 300 Un lamar ER 300 mg 8-25 mg by ity of tablet, 20:40: mouth [place] extended 15 daily. Medical release 24 Branch hr loratadine 1-0 Yes 10mg Take 10 mg U nivers 10 mg 8-25 by mouth ity of tablet 20:40: daily. [address] Branch gabapentin 1-0 Yes 300mg Take 300 Un lamar ER 300 mg 8-25 mg by ity of tablet, 20:40: mouth [place] extended 15 daily. Medical release 24 Branch hr loratadine 1-0 Yes 10mg Take 10 mg U nivers 10 mg 8-25 by mouth ity of tablet 20:40: daily. [address] Branch gabapentin 1-0 Yes 300mg Take 300 Un lamar ER 300 mg 8-25 mg by ity of tablet, 20:40: mouth [place] extended 15 daily. Medical release 24 Branch hr loratadine Yes 10mg Take 10 mg U nivers 10 mg 8-25 by mouth ity of tablet 20:40: daily. [address] aspirin 81 Yes 81mg Take 81 mg U nivers mg EC 8-25 by mouth ity of tablet 20:39: daily. [address] aspirin 81 Yes 81mg Take 81 mg U nivers mg EC 8-25 by mouth ity of tablet 20:39: daily. [address] aspirin 81 Yes 81mg Take 81 mg U nivers mg EC 8-25 by mouth ity of tablet 20:39: daily. [address] aspirin 81 Yes 81mg Take 81 mg U nivers mg EC 8-25 by mouth ity of tablet 20:39: daily. [address] aspirin 81 Yes 81mg Take 81 mg U nivers mg EC 8-25 by mouth ity of tablet 20:39: daily. [address] tc 2020- No [id number] 43.2mCi 43.2 Univ ers 99m-tetrofo 06-11 millicurie i ty of smin 14:19: 14:19 , [place] ([facility]) 00 :00 Intravenou Medi ryan injection s, ONCE, 1 Bran ch 43.2 dose, Tue millicurie 06/11/21 at 0930, Routine tc 2020- No [id number] 16.4mCi 16.4 Unive rs 99m-tetrofo 06-11 millicurie i ty of smin 13:00: 13:04 , [place] ([facility]) 00 :00 Intravenou Medi ryan injection s, ONCE, 1 Bran ch 16.4 dose, Tue millicurie 06/11/21 at 0815, Routine aspirin 81 Yes 81mg Take 81 mg U nivers mg EC 7-15 by mouth ity of tablet 16:04: daily. [address] aspirin 81 Yes 81mg Take 81 mg U nivers mg EC 7-15 by mouth ity of tablet 16:04: daily. [address] aspirin 81 Yes 81mg Take 81 mg U nivers mg EC 7-15 by mouth ity of tablet 16:04: daily. [address] aspirin 81 2020-0 Yes 81mg Take 81 mg U nivers mg EC 7-15 by mouth ity of tablet 16:04: daily. [address] aspirin 81 2020-0 Yes 81mg Take 81 mg U nivers mg EC 7-15 by mouth ity of tablet 16:04: daily. [address] aspirin 81 2020-0 Yes 81mg Take 81 mg U nivers mg EC 7-15 by mouth ity of tablet 16:04: daily. [address] aspirin 81 2020-0 Yes 81mg Take 81 mg U nivers mg EC 7-15 by mouth ity of tablet 16:04: daily. [address] metFORMIN 2020-0 Yes 500mg Take 500 Uni vers 500 mg 7-12 mg by ity of tablet 00:00: mouth 2 [place] [address] ([facility]) Medical times [place] daily. metoprolol 0 Yes 25mg Take 25 mg U nivers succinate 7-12 by mouth ity of XL 25 mg 24 [place]:00: [place]. [place] 00 [facility] ramipriL 0 Yes 2.5mg Take 2.5 Univ ers 2.5 mg 7-12 mg by ity of capsule 00:00: mouth [place] daily. [facility] Branch atorvastati 0 Yes 20mg Take 20 mg Univers n 20 mg 7-12 by mouth ity of tablet 00:00: daily. [address] metFORMIN 2020-0 Yes 500mg Take 500 Uni vers 500 mg 7-12 mg by ity of tablet 00:00: mouth 2 [place] [address] (two) Medical times [place] daily. metoprolol 2020-0 Yes 25mg Take 25 mg U nivers succinate 7-12 by mouth ity of XL 25 mg 24 00:00: [place]. [place] tablet [facility] ramipriL 2020-0 Yes 2.5mg Take 2.5 Univ ers 2.5 mg 7-12 mg by ity of capsule 00:00: mouth [place] daily. [facility] Branch atorvastati 0 Yes 20mg Take 20 mg Univers n 20 mg 7-12 by mouth ity of tablet 00:00: daily. [address] metFORMIN 2020-0 Yes 500mg Take 500 Uni vers 500 mg 7-12 mg by ity of tablet 00:00: mouth (two) Medical times [place] daily. metoprolol 2020-0 Yes 25mg Take 25 [...] mg by ity of tablet 00:00: mouth (two) Medical times [place] daily. metoprolol 2020-0 Yes 25mg Take 25 [...] mg by ity of tablet 00:00: mouth ([facility]) Medical times [place] daily. metoprolol 2020-0 Yes 25mg Take 25 [...] mg by ity of tablet 00:00: mouth (two) Medical times Branch daily. metoprolol 2020-0 Yes 25mg Take 25 mg U nivers succinate 7-12 by mouth ity of XL 25 mg 24 00:00: [place]. [place] tablet 00 [place] [facility] ramipriL 2020-0 Yes 2.5mg Take 2.5 Univ ers 2.5 mg 7-12 mg by ity of capsule 00:00: mouth daily. Medical Branch atorvastati 2020-0 Yes 20mg Take 20 mg Univers n 20 mg 7-12 by mouth ity of tablet 00:00: daily. Medical Branch metFORMIN 2020-0 Yes 500mg Take 500 Uni vers 500 mg 7-12 mg by ity of tablet 00:00: mouth 2 (two) Medical times Branch daily. metoprolol 2020-0 Yes 25mg Take 25 [...] mg by ity of tablet 00:00: mouth (two) Medical times Branch daily. metoprolol 2020-0 Yes 25mg Take 25 mg U nivers succinate 7-12 by mouth ity of XL 25 mg 24 00:00: [place]. [place] tablet [place] [facility] ramipriL 0 Yes 2.5mg Take 2.5 Univ ers 2.5 mg 7-12 mg by ity of capsule 00:00: mouth daily. Medical Branch loratadine 2020-0 No 1mg 10 mg 7-12 tablet 00:00: 00 metoprolol 2020-0 No 1mg succinate 7-12 ER 25 mg 00:00: tablet,exte 00 nded release 24 hr loratadine 2020-0 No 1mg 10 mg 7-12 tablet 00:00: 00 metoprolol 2020-0 No 1mg succinate 7-12 ER 25 mg 00:00: tablet,exte 00 nded release 24 hr metformin 2021-0 No 5mg 500 mg 7-12 tablet 00:00: 00 metformin 2021-0 No 5mg 500 mg 7-12 tablet 00:00: 00 atorvastati 2021-0 No 1mg n 20 mg 7-12 tablet 00:00: 00 atorvastati 2021-0 No 1mg n 20 mg 7-12 tablet 00:00: 00 Flonase 2021-0 No 1mcg/ac Allergy 7-12 tuation Relief 50 00:00: mcg/actuati 00 on nasal spray,suspe nsion Flonase 2021-0 No 1mcg/ac Allergy 7-12 tuation Relief 50 00:00: mcg/actuati 00 on nasal spray,suspe nsion gabapentin 2021-0 No 1mg 300 mg 7-12 capsule 00:00: 00 gabapentin 2021-0 No 1mg 300 mg 7-12 capsule 00:00: 00 ramipril 2021-0 No 1mg 2.5 mg 7-12 capsule 00:00: 00 ramipril 2021-0 No 1mg 2.5 mg 7-12 capsule 00:00: 00 loratadine 2021-0 No 1mg 10 mg 7-12 tablet 00:00: 00 metoprolol 2021-0 No 1mg succinate 7-12 ER 25 mg 00:00: tablet,exte 00 nded release 24 hr loratadine 2021-0 No 1mg 10 mg 7-12 tablet 00:00: 00 metoprolol 2021-0 No 1mg succinate 7-12 ER 25 mg 00:00: tablet,exte 00 nded release 24 hr loratadine 2021-0 No 1mg 10 mg 7-12 tablet 00:00: 00 metformin 2021-0 No 5mg 500 mg 7-12 tablet 00:00: 00 metoprolol 2021-0 No 1mg succinate 7-12 ER 25 mg 00:00: tablet,exte 00 nded release 24 hr loratadine 2021-0 No 1mg 10 mg 7-12 tablet 00:00: 00 metoprolol 2021-0 No 1mg succinate 7-12 ER 25 mg 00:00: tablet,exte 00 nded release 24 hr metformin 2021-0 No 5mg 500 mg 7-12 tablet 00:00: 00 metformin 2021-0 No 5mg 500 mg 7-12 tablet 00:00: 00 atorvastati 2021-0 No 1mg n 20 mg 7-12 tablet 00:00: 00 atorvastati 2021-0 No 1mg n 20 mg 7-12 tablet 00:00: 00 Flonase 2021-0 No 1mcg/ac Allergy 7-12 tuation Relief 50 00:00: mcg/actuati 00 on nasal spray,suspe nsion Flonase 1-0 No 1mcg/ac Allergy 7-12 tuation Relief 50 00:00: mcg/actuati 00 on nasal spray,suspe nsion gabapentin 2021-0 No 1mg 300 mg 7-12 capsule 00:00: 00 metformin 2021-0 No 5mg 500 mg 7-12 tablet 00:00: 00 gabapentin 2021-0 No 1mg 300 mg 7-12 capsule 00:00: 00 ramipril 2021-0 No 1mg 2.5 mg 7-12 capsule 00:00: 00 ramipril 2021-0 No 1mg 2.5 mg 7-12 capsule 00:00: 00 atorvastati 2021-0 No 1mg n 20 mg 7-12 tablet 00:00: 00 atorvastati 2021-0 No 1mg n 20 mg 7-12 tablet 00:00: 00 Flonase 2021-0 No 1mcg/ac Allergy 7-12 tuation Relief 50 00:00: mcg/actuati 00 on nasal spray,suspe nsion Flonase 1-0 No 1mcg/ac Allergy 7-12 tuation Relief 50 00:00: mcg/actuati 00 on nasal spray,suspe nsion gabapentin 1-0 No 1mg 300 mg 7-12 capsule 00:00: 00 gabapentin 2021-0 No 1mg 300 mg 7-12 capsule 00:00: 00 ramipril 2021-0 No 1mg 2.5 mg 7-12 capsule 00:00: 00 ramipril 2021-0 No 1mg 2.5 mg 7-12 capsule 00:00: 00 loratadine 2021-0 No 1mg 10 mg 7-12 tablet 00:00: 00 metoprolol 2021-0 No 1mg succinate 7-12 ER 25 mg 00:00: tablet,exte 00 nded release 24 hr loratadine 2020-0 No 1mg 10 mg 7-12 tablet 00:00: 00 metoprolol 2020-0 No 1mg succinate 7-12 ER 25 mg 00:00: tablet,exte 00 nded release 24 hr metformin 2020-0 No 5mg 500 mg 7-12 tablet 00:00: 00 metformin 2020-0 No 5mg 500 mg 7-12 tablet 00:00: 00 atorvastati 2020-0 No 1mg n 20 mg 7-12 tablet 00:00: 00 atorvastati 2020-0 No 1mg n 20 mg 7-12 tablet 00:00: 00 Flonase 2020-0 No 1mcg/ac Allergy 7-12 tuation Relief 50 00:00: mcg/actuati 00 on nasal spray,suspe nsion Flonase 2020-0 No 1mcg/ac Allergy 7-12 tuation Relief 50 00:00: mcg/actuati 00 on nasal spray,suspe nsion gabapentin 2020-0 No 1mg 300 mg 7-12 capsule 00:00: 00 gabapentin 2020-0 No 1mg 300 mg 7-12 capsule 00:00: 00 ramipril 2020-0 No 1mg 2.5 mg 7-12 capsule 00:00: 00 ramipril 2020-0 No 1mg 2.5 mg 7-12 capsule 00:00: 00 atorvastati 2020-0 Yes 20mg Take 20 mg Univers n 20 mg 7-12 by mouth ity of tablet 00:00: daily. [place] [facility] metFORMIN 2020-0 Yes 500mg Take 500 Uni vers 500 mg 7-12 mg by ity of tablet 00:00: mouth 2 00 (two) Medical times Branch daily. metoprolol 2020-0 Yes 25mg Take 25 [...] by ity of tablet 00:00: mouth 2 [place] (two) Medical times Branch daily. metoprolol Yes [...] by ity of tablet 00:00: mouth 2 [place] (two) Medical times [place] daily. metoprolol Yes 25mg Take 25 mg [...] by ity of tablet 00:00: mouth 2 [place] (two) Medical times Branch daily. metoprolol Yes [...] ity of tablet 00:00: daily. Medical Branch Ecotrin Low No 1mg Strength 81 6-18 mg 00:00: tablet,ente 00 bryon coated Ecotrin Low 2021-0 No 1mg Strength 81 6-18 mg 00:00: tablet,ente 00 bryon coated Ecotrin Low 2021-0 No 1mg Strength 81 6-18 mg 00:00: tablet,ente 00 bryon coated Ecotrin Low 2021-0 No 1mg Strength 81 6-18 mg 00:00: tablet,ente 00 bry[place] coated Ecotrin Low 1-0 No 1mg Strength 81 6-17 mg 00:00: tablet,ente 00 b[place] coated Ecotrin Low 1-0 No 1mg Strength 81 6-17 mg 00:00: tablet,ente 00 bryon coated Ecotrin Low 1-0 No 1mg Strength 81 6-17 mg 00:00: tablet,ente 00 bry[place] coated Ecotrin Low 1-0 No 1mg Strength 81 6-17 mg 00:00: tablet,ente 00 [place] coated loratadine 2021-0 No 1mg 10 mg 1-12 tablet 00:00: 00 metoprolol 2021-0 No 1mg succinate 1-12 ER 25 mg 00:00: tablet,exte 00 nded release 24 hr metformin 1-0 No 5mg 500 mg 1-12 tablet 00:00: 00 atorvastati 2021-0 No 1mg n 20 mg 1-12 tablet 00:00: 00 ramipril 2021-0 No 1mg 2.5 mg 1-12 capsule 00:00: 00 loratadine 2021-0 No 1mg 10 mg 1-12 tablet 00:00: 00 metoprolol 2021-0 No 1mg succinate 1-12 ER 25 mg 00:00: tablet,exte 00 nded release 24 hr metformin 2021-0 No 5mg 500 mg 1-12 tablet 00:00: 00 atorvastati 2021-0 No 1mg n 20 mg 1-12 tablet 00:00: 00 ramipril 2021-0 No 1mg 2.5 mg 1-12 capsule 00:00: 00 loratadine 2021-0 No 1mg 10 mg 1-12 tablet 00:00: 00 metoprolol 2021-0 No 1mg succinate 1-12 ER 25 mg 00:00: tablet,exte 00 nded release 24 hr metformin 2021-0 No 5mg 500 mg 1-12 tablet 00:00: 00 atorvastati 2021-0 No 1mg n 20 mg 1-12 tablet 00:00: 00 ramipril 2021-0 No 1mg 2.5 mg 1-12 capsule 00:00: 00 loratadine 2021-0 No 1mg 10 mg 1-12 tablet 00:00: 00 metoprolol 2021-0 No 1mg succinate 1-12 ER 25 mg 00:00: tablet,exte 00 nded release 24 hr metformin 2021-0 No 5mg 500 mg 1-12 tablet 00:00: 00 atorvastati 2021-0 No 1mg n 20 mg 1-12 tablet 00:00: 00 ramipril 2021-0 No 1mg 2.5 mg 1-12 capsule 00:00: 00 metoprolol 2021-0 No 1mg tartrate 25 1-02 mg tablet 00:00: 00 loratadine 2021-0 No 1mg 10 mg 1-02 tablet 00:00: 00 metformin 2021-0 No 5mg 500 mg 1-02 tablet 00:00: 00 ramipril 2021-0 No 1mg 2.5 mg 1-02 capsule 00:00: 00 metoprolol 2021-0 No 1mg tartrate 25 1-02 mg tablet 00:00: 00 loratadine 2021-0 No 1mg 10 mg 1-02 tablet 00:00: 00 metformin 2021-0 No 5mg 500 mg 1-02 tablet 00:00: 00 ramipril 2021-0 No 1mg 2.5 mg 1-02 capsule 00:00: 00 metoprolol 2021-0 No 1mg tartrate 25 1-02 mg tablet 00:00: 00 loratadine 2021-0 No 1mg 10 mg 1-02 tablet 00:00: 00 metformin 2021-0 No 5mg 500 mg 1-02 tablet 00:00: 00 ramipril 2021-0 No 1mg 2.5 mg 1-02 capsule 00:00: 00 metoprolol 2021-0 No 1mg tartrate 25 1-02 mg tablet 00:00: 00 loratadine 2021-0 No 1mg 10 mg 1-02 tablet 00:00: 00 metformin 2021-0 No 5mg 500 mg 1-02 tablet 00:00: 00 ramipril 2021-0 No 1mg 2.5 mg 1-02 capsule 00:00: 00 valacyclovi 2019-11 No 2mg r 500 mg 2-03 tablet 00:00: 00 valacyclovi 2019-11 No 2mg r 500 mg 2-03 tablet 00:00: 00 Bromfed DM 2019-11 No 10mg/5 2 mg-30 2-03 mL mg-10 mg/5 00:00: mL oral 00 syrup Bromfed DM 2019-11 No 10mg/5 2 mg-30 2-03 mL mg-10 mg/5 00:00: mL oral 00 syrup valacyclovi 2019-11 No 2mg r 500 mg 2-03 tablet 00:00: 00 Bromfed DM 2019-11 No 10mg/5 2 mg-30 2-03 mL mg-10 mg/5 00:00: mL oral 00 syrup valacyclovi 2019-11 No 2mg r 500 mg 2-03 tablet 00:00: 00 Bromfed DM 2019-11 No 10mg/5 2 mg-30 2-03 mL mg-10 mg/5 00:00: mL oral 00 syrup metoprolol 2019-11 No 1mg tartrate 25 0-08 mg tablet 00:00: 00 loratadine 2019-11 No 1mg 10 mg 0-08 tablet 00:00: 00 metformin 2019-11 No 5mg 500 mg 0-08 tablet 00:00: 00 Flonase 2019-11 No 1mcg/ac Allergy 0-08 tuation Relief 50 00:00: mcg/actuati 00 on nasal spray,suspe nsion ramipril 2019-11 No 1mg 2.5 mg 0-08 capsule 00:00: 00 metoprolol 2019-11 No 1mg tartrate 25 0-08 mg tablet 00:00: 00 loratadine 2019-11 No 1mg 10 mg 0-08 tablet 00:00: 00 metformin 2019-11 No 5mg 500 mg 0-08 tablet 00:00: 00 Flonase 2019-11 No 1mcg/ac Allergy 0-08 tuation Relief 50 00:00: mcg/actuati 00 on nasal spray,suspe nsion ramipril 2019-11 No 1mg 2.5 mg 0-08 capsule 00:00: 00 metoprolol 2019-11 No 1mg tartrate 25 0-08 mg tablet 00:00: 00 loratadine 2020-1 No 1mg 10 mg 0-08 tablet 00:00: 00 metformin 2020-1 No 5mg 500 mg 0-08 tablet 00:00: 00 Flonase 2020-1 No 1mcg/ac Allergy 0-08 tuation Relief 50 00:00: mcg/actuati 00 on nasal spray,suspe nsion ramipril 2020-1 No 1mg 2.5 mg 0-08 capsule 00:00: 00 metoprolol 2020-1 No 1mg tartrate 25 0-08 mg tablet 00:00: 00 loratadine 2020-1 No 1mg 10 mg 0-08 tablet 00:00: 00 metformin 2020-1 No 5mg 500 mg 0-08 tablet 00:00: 00 Flonase 2020-1 No 1mcg/ac Allergy 0-08 tuation Relief 50 00:00: mcg/actuati 00 on nasal spray,suspe nsion ramipril 2019-1 No 1mg 2.5 mg 0-08 capsule 00:00: 00 metoprolol 2020-0 No 1mg tartrate 25 8-24 mg tablet 00:00: 00 metformin 2020-0 No 5mg 500 mg 8-24 tablet 00:00: 00 gabapentin 2020-0 No 1mg 300 mg 8-24 capsule 00:00: 00 ramipril 2020-0 No 1mg 2.5 mg 8-24 capsule 00:00: 00 metoprolol 2020-0 No 1mg tartrate 25 8-24 mg tablet 00:00: 00 metformin 2020-0 No 5mg 500 mg 8-24 tablet 00:00: 00 gabapentin 2020-0 No 1mg 300 mg 8-24 capsule 00:00: 00 ramipril 2020-0 No 1mg 2.5 mg 8-24 capsule 00:00: 00 metoprolol 2020-0 No 1mg tartrate 25 8-24 mg tablet 00:00: 00 metformin 2020-0 No 5mg 500 mg 8-24 tablet 00:00: 00 gabapentin 2020-0 No 1mg 300 mg 8-24 capsule 00:00: 00 ramipril 2020-0 No 1mg 2.5 mg 8-24 capsule 00:00: 00 metoprolol 2020-0 No 1mg tartrate 25 8-24 mg tablet 00:00: 00 metformin 2020-0 No 5mg 500 mg 8-24 tablet 00:00: 00 gabapentin 2020-0 No 1mg 300 mg 8-24 capsule 00:00: 00 ramipril 2020-0 No 1mg 2.5 mg 8-24 capsule 00:00: 00 metformin 2020-0 No 5mg 500 mg 5-29 tablet 00:00: 00 metformin 2020-0 No 5mg 500 mg 5-29 tablet 00:00: 00 metformin 2020-0 No 5mg 500 mg 5-29 tablet 00:00: 00 metformin 2020-0 No 5mg 500 mg 5-29 tablet 00:00: 00 ibuprofen 2020-0 No 1mg 800 mg 4-02 tablet 00:00: 00 gabapentin 2020-0 No 1mg 300 mg 4-02 capsule 00:00: 00 ibuprofen 2020-0 No 1mg 800 mg 4-02 tablet 00:00: 00 gabapentin 2020-0 No 1mg 300 mg 4-02 capsule 00:00: 00 ibuprofen 2020-0 No 1mg 800 mg 4-02 tablet 00:00: 00 gabapentin 2020-0 No 1mg 300 mg 4-02 capsule 00:00: 00 ibuprofen 2020-0 No 1mg 800 mg 4-02 tablet 00:00: 00 gabapentin 2020-0 No 1mg 300 mg 4-02 capsule 00:00: 00 metformin 2020-0 No 5mg 500 mg 2-27 tablet 00:00: 00 metoprolol 2020-0 No 1mg tartrate 25 2-27 mg tablet 00:00: 00 metformin 2020-0 No 5mg 500 mg 2-27 tablet 00:00: 00 Ecotrin Low 2020-0 No 1mg Strength 81 2-27 mg 00:00: tablet,ente 00 bryon coated ramipril 2020-0 No 1mg 2.5 mg 2-27 capsule 00:00: 00 ramipril 2020-0 No 1mg 2.5 mg 2-27 capsule 00:00: 00 metformin 2020-0 No 5mg 500 mg 2-27 tablet 00:00: 00 metoprolol 2020-0 No 1mg tartrate 25 2-27 mg tablet 00:00: 00 metformin 2020-0 No 5mg 500 mg 2-27 tablet 00:00: 00 Ecotrin Low 2020-0 No 1mg Strength 81 2-27 mg 00:00: tablet,ente 00 bryon coated ramipril 2020-0 No 1mg 2.5 mg 2-27 capsule 00:00: 00 ramipril 2020-0 No 1mg 2.5 mg 2-27 capsule 00:00: 00 metformin 2020-0 No 5mg 500 mg 2-27 tablet 00:00: 00 metformin 2020-0 No 5mg 500 mg 2-27 tablet 00:00: 00 metoprolol 2020-0 No 1mg tartrate 25 2-27 mg tablet 00:00: 00 metformin 2020-0 No 5mg 500 mg 2-27 tablet 00:00: 00 Ecotrin Low 2020-0 No 1mg Strength 81 2-27 mg 00:00: tablet,ente 00 bryon coated ramipril 2020-0 No 1mg 2.5 mg 2-27 capsule 00:00: 00 metoprolol 2020-0 No 1mg tartrate 25 2-27 mg tablet 00:00: 00 ramipril 2020-0 No 1mg 2.5 mg 2-27 capsule 00:00: 00 metformin 2020-0 No 5mg 500 mg 2-27 tablet 00:00: 00 Ecotrin Low 2020-0 No 1mg Strength 81 2-27 mg 00:00: tablet,ente 00 bryon coated ramipril 2020-0 No 1mg 2.5 mg 2-27 capsule 00:00: 00 ramipril 2020-0 No 1mg 2.5 mg 2-27 capsule 00:00: 00 metoprolol 2020-0 No 1mg tartrate 25 2-24 mg tablet 00:00: 00 metoprolol 2020-0 No 1mg tartrate 25 2-24 mg tablet 00:00: 00 metoprolol 2020-0 No 1mg tartrate 25 2-24 mg tablet 00:00: 00 metoprolol 2020-0 No 1mg tartrate 25 2-24 mg tablet 00:00: 00 Vital Signs Vital Name Observation Time Observation Value Comments Source Systolic blood 2021-07-10 20:39:00 123 mm[Hg] Univer sity of pressure [facility] Diastolic blood 2021-07-10 20:39:00 73 mm[Hg] Unive rsity of pressure [facility] Heart rate 2021-07-10 20:39:00 77 /min [facility] Body weight 2021-07-10 20:39:00 73.483 kg [facility] BMI 2021-07-10 20:39:00 28.70 kg/m2 [facility] Oxygen saturation in 2021-07-10 20:39:00 96 /min [facility] Arterial blood by [facility] Pulse oximetry Branch Systolic blood 2021-05-30 15:34:00 108 mm[Hg] Univer sity of pressure [facility] Diastolic blood 2021-05-30 15:34:00 65 mm[Hg] Unive rsity of pressure [facility] Heart rate 2021-05-30 15:34:00 73 /min Universi ty of [facility] Respiratory rate 2021-05-30 15:34:00 20 /min Univ ersity of [facility] Body height 2021-05-30 15:34:00 160 cm Universi ty of [facility] Body weight 2021-05-30 15:34:00 74.118 kg Universi ty [facility] BMI 2021-05-30 15:34:00 28.95 kg/m2 Universi ty [facility] Oxygen saturation in 2021-05-30 15:34:00 96 /min [facility] Arterial blood by [facility] Pulse oximetry Branch BP Systolic 2022-08-19 17:14:00 114 mm[Hg] BP Diastolic 2022-08-19 17:14:00 73 mm[Hg] Weight Measured 2022-08-19 17:14:00 173.20 pounds Height Measured 2022-08-19 17:14:00 63.50 inches Body Temperature 2022-08-19 17:14:00 98.30 degrees Heart Rate 2022-08-19 17:14:00 69.00 /min Respiratory Rate 2022-08-19 17:14:00 18.00 /min BP Systolic 2022-06-18 15:55:00 126 mm[Hg] BP Diastolic 2022-06-18 15:55:00 63 mm[Hg] Weight Measured 2022-06-18 15:55:00 174.00 pounds Height Measured 2022-06-18 15:55:00 63.50 inches Body Temperature 2022-06-18 15:55:00 97.50 degrees Heart Rate 2022-06-18 15:55:00 98.00 /min Respiratory Rate 2022-06-18 15:55:00 21.00 /min BP Systolic 2022-06-17 14:50:00 118 mm[Hg] BP Diastolic 2022-06-17 14:50:00 76 mm[Hg] Weight Measured 2022-06-17 14:50:00 174.00 pounds Height Measured 2022-06-17 14:50:00 63.50 inches Body Temperature 2022-06-17 14:50:00 97.00 degrees Heart Rate 2022-06-17 14:50:00 80.00 /min Respiratory Rate 2022-06-17 14:50:00 BP Systolic 2022-05-03 11:41:00 132 mm[Hg] BP Diastolic 2022-05-03 11:41:00 77 mm[Hg] Weight Measured 2022-05-03 11:41:00 173.40 pounds Height Measured 2022-05-03 11:41:00 63.50 inches Body Temperature 2022-05-03 11:41:00 98.30 degrees Heart Rate 2022-05-03 11:41:00 82.00 /min Respiratory Rate 2022-05-03 11:41:00 18.00 /min BP Systolic 2022-03-13 14:39:00 111 mm[Hg] BP Diastolic 2022-03-13 14:39:00 71 mm[Hg] Weight Measured 2022-03-13 14:39:00 171.80 pounds Height Measured 2022-03-13 14:39:00 63.50 inches Body Temperature 2022-03-13 14:39:00 97.20 degrees Heart Rate 2022-03-13 14:39:00 69.00 /min Respiratory Rate 2022-03-13 14:39:00 BP Systolic 2022-01-28 14:12:00 132 mm[Hg] BP Diastolic 2022-01-28 14:12:00 82 mm[Hg] Weight Measured 2022-01-28 14:12:00 177.00 pounds Height Measured 2022-01-28 14:12:00 63.50 inches Body Temperature 2022-01-28 14:12:00 98.30 degrees Heart Rate 2022-01-28 14:12:00 69.00 /min Respiratory Rate 2022-01-28 14:12:00 20.00 /min BP Systolic 2021-11-30 10:10:00 118 mm[Hg] BP Diastolic 2021-11-30 10:10:00 64 mm[Hg] Weight Measured 2021-11-30 10:10:00 169.00 pounds Height Measured 2021-11-30 10:10:00 63.50 inches Body Temperature 2021-11-30 10:10:00 98.20 degrees Heart Rate 2021-11-30 10:10:00 67.00 /min Respiratory Rate 2021-11-30 10:10:00 BP Systolic 2021-11-25 16:30:00 118 mm[Hg] BP Diastolic 2021-11-25 16:30:00 67 mm[Hg] Weight Measured 2021-11-25 16:30:00 170.00 pounds Height Measured 2021-11-25 16:30:00 63.50 inches Body Temperature 2021-11-25 16:30:00 98.30 degrees Heart Rate 2021-11-25 16:30:00 72.00 /min Respiratory Rate 2021-11-25 16:30:00 20.00 /min BP Systolic 2021-10-24 17:34:00 142 mm[Hg] BP Diastolic 2021-10-24 17:34:00 83 mm[Hg] Weight Measured 2021-10-24 17:34:00 168.80 pounds Height Measured 2021-10-24 17:34:00 63.50 inches Body Temperature 2021-10-24 17:34:00 98.30 degrees Heart Rate 2021-10-24 17:34:00 68.00 /min Respiratory Rate 2021-10-24 17:34:00 BP Systolic 2021-07-25 14:51:00 112 mm[Hg] BP Diastolic 2021-07-25 14:51:00 62 mm[Hg] Weight Measured 2021-07-25 14:51:00 165.20 pounds Height Measured 2021-07-25 14:51:00 63.50 inches Body Temperature 2021-07-25 14:51:00 98.30 degrees Heart Rate 2021-07-25 14:51:00 69.00 /min Respiratory Rate 2021-07-25 14:51:00 21.00 /min BP Systolic 2021-05-27 08:56:00 125 mm[Hg] BP Diastolic 2021-05-27 08:56:00 76 mm[Hg] Weight Measured 2021-05-27 08:56:00 163.40 pounds Height Measured 2021-05-27 08:56:00 63.50 inches Body Temperature 2021-05-27 08:56:00 97.90 degrees Heart Rate 2021-05-27 08:56:00 69.00 /min Respiratory Rate 2021-05-27 08:56:00 16.00 /min BP Systolic 2021-05-04 17:33:00 152 mm[Hg] BP Diastolic 2021-05-04 17:33:00 80 mm[Hg] Weight Measured 2021-05-04 17:33:00 Height Measured 2021-05-04 17:33:00 Body Temperature 2021-05-04 17:33:00 Heart Rate 2021-05-04 17:33:00 Respiratory Rate 2021-05-04 17:33:00 BP Systolic 2021-02-01 15:13:00 152 mm[Hg] BP Diastolic 2021-02-01 15:13:00 80 mm[Hg] Weight Measured 2021-02-01 15:13:00 163.40 pounds Height Measured 2021-02-01 15:13:00 63.50 inches Body Temperature 2021-02-01 15:13:00 98.00 degrees Heart Rate 2021-02-01 15:13:00 71.00 /min Respiratory Rate 2021-02-01 15:13:00 17.00 /min Procedures Procedure Date / Time Performed Performing Clinician Sourjacquelyn e NM MYOCARDIUM 2021-06-11 15:15:00 Robyn [facility] PERFUSION STRESS AND Medical Bra nch REST NM MYOCARDIUM 2021-06-11 15:15:00 Robyn [facility] PERFUSION STRESS AND Medical Bra nch REST NM MYOCARDIUM 2021-06-11 15:15:00 Robyn [facility] PERFUSION STRESS AND Medical Bra nch REST NM MYOCARDIUM 2021-06-11 15:15:00 Robyn [facility] PERFUSION STRESS AND Medical Bra nch REST ASSIGNMENT OF BENEFITS 2021-05-30 15:08:25 Doctor Unassigned, No [facility] Plan of Care Planned Activity Planned Date Details Comments Source Goal Plan of Care Note [code = 13557-4] Goal Plan of Care Note [code = 07169-7] Goal Plan of Care Note [code = 93404-7] Goal Plan of Care Note [code = 25901-9] Goal Plan of Care Note [code = 65476-3] Goal Plan of Care Note [code = 39917-3] Goal Plan of Care Note [code = 99303-2] Goal Plan of Care Note [code = 60559-1] Goal Plan of Care Note [code = 28263-4] Goal Plan of Care Note [code = 29413-5] Goal Plan of Care Note [code = 58464-6] Goal Plan of Care Note [code = 80498-5] Goal Plan of Care Note [code = 32378-8] Goal Plan of Care Note [code = 57813-8] Goal Plan of Care Note [code = 71081-9] Goal Plan of Care Note [code = 11941-5] Goal Plan of Care Note [code = 28872-5] Goal Plan of Care Note [code = 99352-7] Goal Plan of Care Note [code = 36037-8] Goal Plan of Care Note [code = 33116-5] Goal Plan of Care Note [code = 97930-6] Goal Plan of Care Note [code = 46658-2] Goal Plan of Care Note [code = 73019-3] Goal Plan of Care Note [code = 02106-0] Goal Plan of Care Note [code = 62202-6] Goal Plan of Care Note [code = 63356-9] Goal Plan of Care Note [code = 51584-6] Goal Plan of Care Note [code = 58373-6] Goal Plan of Care Note [code = 58493-4] Goal Plan of Care Note [code = 16345-6] Goal Plan of Care Note [code = 58662-6] Goal Plan of Care Note [code = 81947-4] Goal Plan of Care Note [code = 08418-6] Goal Plan of Care Note [code = 13941-9] Goal Plan of Care Note [code = 07334-0] Goal Plan of Care Note [code = 09400-3] Goal Plan of Care Note [code = 12038-3] Goal Plan of Care Note [code = 52623-5] Goal Plan of Care Note [code = 15585-6] Goal Plan of Care Note [code = 33532-9] Goal Plan of Care Note [code = 04134-8] Goal Plan of Care Note [code = 90329-8] Goal Plan of Care Note [code = 91325-5] Goal Plan of Care Note [code = 29566-9] Goal Plan of Care Note [code = 73801-4] Goal Plan of Care Note [code = 34060-8] Goal Plan of Care Note [code = 43905-5] Goal Plan of Care Note [code = 93730-1] Goal Plan of Care Note [code = 72243-8] Goal Plan of Care Note [code = 27860-3] Goal Plan of Care Note [code = 30398-9] Goal Plan of Care Note [code = 23526-3] Goal Plan of Care Note [code = 45395-5] Goal Plan of Care Note [code = 22422-4] Goal Plan of Care Note [code = 88909-4] Goal Plan of Care Note [code = 79116-0] Goal Plan of Care Note [code = 75306-4] Goal Plan of Care Note [code = 34149-7] Goal Plan of Care Note [code = 34932-9] Goal Plan of Care Note [code = 40262-5] Goal Plan of Care Note [code = 93992-5] Goal Plan of Care Note [code = 45564-2] Goal Plan of Care Note [code = 57101-8] Goal Plan of Care Note [code = 33926-7] Goal Plan of Care Note [code = 39704-6] Goal Plan of Care Note [code = 94040-0] Goal Plan of Care Note [code = 18107-4] Goal Plan of Care Note [code = 73120-1] Goal Plan of Care Note [code = 09661-6] Goal Plan of Care Note [code = 70036-5] Goal Plan of Care Note [code = 90340-4] Goal Plan of Care Note [code = 86726-2] Goal Plan of Care Note [code = 33603-4] Goal Plan of Care Note [code = 34344-8] Goal Plan of Care Note [code = 30704-8] Goal Plan of Care Note [code = 00937-3] Goal Plan of Care Note [code = 61022-3] Goal Plan of Care Note [code = 84429-7] Goal Plan of Care Note [code = 46452-0] Goal Plan of Care Note [code = 98420-5] Goal Plan of Care Note [code = 17164-7] Goal Plan of Care Note [code = 26447-8] Goal Plan of Care Note [code = 19466-9] Goal Plan of Care Note [code = 31001-8] Goal Plan of Care Note [code = 74546-5] Goal Plan of Care Note [code = 30766-5] Goal Plan of Care Note [code = 77850-8] Goal Plan of Care Note [code = 47732-6] Goal Plan of Care Note [code = 81156-4] Goal Plan of Care Note [code = 44449-2] Goal Plan of Care Note [code = 91917-4] Goal Plan of Care Note [code = 52164-8] Goal Plan of Care Note [code = 29358-5] Goal Plan of Care Note [code = 73268-8] Goal Plan of Care Note [code = 16113-1] Goal Plan of Care Note [code = 62785-0] Goal Plan of Care Note [code = 76756-1] Goal Plan of Care Note [code = 61032-3] Goal Plan of Care Note [code = 81731-3] Goal Plan of Care Note [code = 92912-0] Goal Plan of Care Note [code = 23747-6] Goal Plan of Care Note [code = 97093-3] Goal Plan of Care Note [code = 40206-1] Goal Plan of Care Note [code = 75692-4] Goal Plan of Care Note [code = 30435-3] Encounters Start End Encounter Admission Attending Care Care Encounter Source Date/Time Date/Time Type Type Clinicians Facility Department ID 2022-11-27 2022-11-[address] [facility] SFA [id number] Craig 15:59:46 15:59:46 0112 F Oswaldo 2022-08-19 2022-08-19 Outpatient [id number] 00:00:00 00:00:00 Visit q51y-17o3 82d-42e3-8 -4c6a-862 p5w-666558 39383e11p 45d38e 2022-07-10 2022-07-10 Outpatient R LANDY [facility] [id number] Univers 15:00:00 15:00:00 SENDIL [facility] 2022-06-18 2022-06-18 Outpatient [id number] 00:00:00 00:00:00 Visit 1f69-460r w21-791d-g -m7h9-qd1 8w4-sh5318 58117gd3c 64ab8a 2022-06-17 2022-06-17 Outpatient [id number] 00:00:00 00:00:00 Visit 0a1b-0hjv r5s-9lsz-r -abd1-5a5 bd1-1c204k 67z4yb21s 3fc15a 2022-06-11 2022-06-11 Outpatient [id number] 00:00:00 00:00:00 Visit aabe-4b1a nabeel-4b1a-a -r804-8ne 220-8mp203 3961t4h9r 1a2c4e 2021-07-10 2021-07-10 [facility] 1.2.840.114 [id number] [facility] 15:24:14 16:02:21 [id number] [phone] [place]ical n[place] 9 [facility] 2021-07-10 2021-07-10 Outpatient Tatum BILL [facility] [id number] Univers 15:30:00 15:30:00 SENDIL [facility] 2021-07-10 2021-07-10 [facility] 1.2.840.114 [id number] [facility] 00:00:00 00:00:00 (Out) Robyn Price [id number] [facility] [place] [phone] N[place] dical nal 9 [facility] 2021-07-10 2021-07-10 [facility] 1.2.840.114 [id number] Univers 00:00:00 00:00:00 (Out) Sendlakeisha Price [id number] ity [place] [phone] [facility] 059 [facility] 2021-06-18 2021-06-18 [facility] [id number] Univers 16:00:00 16:00:00 SENDIL ity [facility] 2021-06-11 2021-06-11 [facility] 1.2.840.114 [id number] Univers 07:43:37 23:59:00 Encounter Sendil Choco Price [id number] [place] [phone] [facility] [address] [place] 2021-06-11 2021-06-11 [facility] 1.2.840.114 [id number] Univers 07:43:25 23:59:00 Encounter Sendil Choco Price [id number] ity [place]2.[place] [id number] [facility] [address] 2021-06-11 2021-06-11 [facility] 1.2.840.114 [id number] Univers 07:43:12 23:59:00 Encounter Sendil Choco Price 350.1.13.10 [place] [id number] [facility] [address] 2021-06-11 2021-06-11 [facility] [id number] Univers 08:30:00 08:30:00 SENDIL ity [facility] 2021-06-11 2021-06-11 [facility] 1.2.840.114 [id number] Univers 07:42:57 07:42:57 Encounter Sendil Choco Price [id number] ity [place] [id number] [facility] [address] 2021-05-30 2021-05-30 Office Landy [facility] 1.2.840.114 [id number] Univers 10:10:05 11:17:32 Visit Sendil Choco Price 350.1.13.10 ity of [place] 4.2.7.2.[place] [phone] Nv dical nal [address] [facility] 2021-05-30 2021-05-30 Outpatient R LANDY [facility] [id number] [facility] Univers 10:30:00 10:30:00 SENDIL ity of [facility] 2021-05-30 2021-05-30 Orders Doctor ROBERT 1.2.840.114 [id number] Univers 00:00:00 00:00:00 Only Unassigned, CHELE 350.1.13.10 ity of [place] [facility] 4.2.7.2.686 David as [phone] [facility] [address] Results Test Description Test Time Test Comments Results Result Comments Source HEMOGLOBIN A1c 2022-11-29 06:25:27 Test Item Value Reference Range Interpretation Comme nts HEMOGLOBIN A1c (test code = 6.7 % 4.2-5.6 H [employer] 16422) GUIDELINES FOR HGB A1C: PREDIABETES/INC REASED RISK . . . . . . . 5.7-6.4% DIAGNO SIS OF DIABETES . . . . . . . . . >=6.5% WITH CONFIRMATION OR APPROPRIATE SYM PTOMS NOTE: ASSAY MAY BE AFFECTED BY HEM OGLOBINOPATHIES (SICKLE CELL ANEMIA, S- C DISEASE, OTHERS) OR ARTIFICIALLY LO WERED BY DECREASED RED CELL SURVIVAL ( HEMOLYTIC ANEMIAS, BLOOD LOSS, ETC.). CO NSIDER ALTERNATE TESTING OR LABORATORY C ONSULTATION. COMPREHENSIVE METABOLIC [id number] 03:42:12 Test Item Value Reference Range Interpretation Comments GLUCOSE (test code = 109 MG/DL 70-99 H 2216) BUN (test code = 16 MG/DL -2207) CREATININE (test 0.80 MG/DL 0.60-1.30 code = 2214) eGFR (2020 CKD-EPI) 81 ML/MIN/1.73 >60 (test code = 64401) CALC BUN/CREAT (test 20 RATIO 6-28 code = 2235) SODIUM (test code = 140 MEQ/L 251-749 7696) POTASSIUM (test code 4.4 MEQ/L 3.5-5.4 = 222) CHLORIDE (test code 104 MEQ/L 95-107 = 221) CARBON DIOXIDE (test 26 MEQ/L 19-31 code = 2206) CALCIUM (test code = 9.2 MG/DL 8.5-10.5 2208) PROTEIN, TOTAL (test 7.2 G/DL 6.1-8.3 code = 222) ALBUMIN (test code = 4.4 G/DL 3.5-5.2 2200) CALC GLOBULIN (test 2.8 G/DL 1.9-3.7 code = 2240) CALC A/G RATIO (test 1.6 RATIO 1.0-2.6 code = 2234) BILIRUBIN, TOTAL 0.3 MG/DL See_Comment [Automated message] (test code = 220) The syste m which generated this result transmit christian reference range : <=1.2. The refe rence range was not u sed to interpret th is result as normal/abnormal . ALKALINE PHOSPHATASE 62 U/L 40-142 (test code = 220) AST (test code = 18 U/L 9-40 2217) ALT (test code = 15 U/L 5-40 2218) LIPID [id number] 03:42:12 Test Item Value Reference Range Interpretation Comments CHOLESTEROL (test 123 MG/DL <200 code = 2210) TRIGLYCERIDES (test 82 MG/DL <150 code = 2232) HDL CHOLESTEROL (test 49 MG/DL >39 code = 2220) CALC LDL CHOL (test 58 MG/DL <100 NOTE: C ALCULATED LDL code = 2237) IS BASED ON RANJAN-LARRY METHOD WHICHINCLUDES ADJUSTABLE TRIGLYCERIDE:VL DL CHOLESTEROL RAT IO.THIS FACTOR VARIES B Y MEASURED TRIGLY CERIDE AND NON-HDLCHOL ESTEROL CONCENTRATIONS WITH INCREASED CALCU LATED LDL SEENIN HIGH ER TRIGLYCERIDE OR LOWER NON-HDL SPECIME NS. FOR MOREINFORMATION , SEE CLIENT ANNOUNCE MENT AT [email or web address] LDL/HDL 1.18 RATIO <3.22 UNLESS O THERWISE (test code = 223) INDICATED , ALL TESTING PERFORMED [facility], [place] [address] [place] [address] SUNNY GRAJEDA DIRECTOR: MARINA ENRIQUE M.D. CLIA NUMBER [id number] CAP ACCREDITATION N O. [id number] HEMOGLOBIN [id number] 05:44:24 Test Item Value Reference Range Interpretation Comments HEMOGLOBIN A1c (test 6.7 % 4.2-5.6 H [employer] AN DIABETES code = 18085) [facility] FOR HGB A1C: PREDIABETES/INC REASED RISK . . . . . . . 5.7 -6.4% DIAGNOSIS OF DI ABETES . . . . . . . . . >=6 .5% WITH CONFIRMATION OR APPROPRIATE SYMPTOMS NOTE: ASSAY MAY BE AFFECTED BY HEMOGLOBINOPATH IES (SICKLE CELL ANEMIA, S- C DISEASE, OTHERS) OR PINEDA FICIALLY LOWERED BY DECR EASED RED CELL SURVIVAL ( HEMOLYTIC ANEMIAS, BLOOD LOSS, ETC.). CONSIDER ALTERN ATE TESTING OR LABORATORY C ONSULTATION. UNLESS OTHERWIS E INDICATED, ALL TESTING PER FORMED ATCLINICAL PATH [address] [address] LABORATORY DIRE CTOR: MARINA ENRIQUE M.D. CLIA NUMBER [id number] [place]. [id number] HEMOGLOBIN [id number] 05:02:16 Test Item Value Reference Range Interpretation Comments HEMOGLOBIN A1c (test 7.1 % 4.2-5.6 H [facility]ES code = 57699) [facility] [place] [facility] FOR HGB A1C: PREDIABETES/INC REASED RISK . . . . . . . 5.7 -6.4% DIAGNOSIS OF DI ABETES . . . . . . . . . >=6 .5% WITH CONFIRMATION OR APPROPRIATE SYMPTOMS NOTE: ASSAY MAY BE AFFECTED BY HEMOGLOBINOPATH IES (SICKLE CELL ANEMIA, S- C DISEASE, OTHERS) OR PINEDA FICIALLY LOWERED BY DECR EASED RED CELL SURVIVAL ( HEMOLYTIC ANEMIAS, BLOOD LOSS, ETC.). CONSIDER ALTERN ATE TESTING OR LABORATORY C ONSULTATION. COMPREHENSIVE METABOLIC [id number] 04:11:01 Test Item Value Reference Range Interpretation Comments GLUCOSE (test code = 139 MG/DL 70-99 H 2216) BUN (test code = 13 MG/DL -2207) CREATININE (test 0.74 MG/DL 0.60-1.30 code = 2214) eGFR (2020 CKD-EPI) 89 ML/MIN/1.73 >60 (test code = 21443) CALC BUN/CREAT (test 18 RATIO 6-28 code = 2235) SODIUM (test code = 140 MEQ/L 232-441 2109) POTASSIUM (test code 4.9 MEQ/L 3.5-5.4 = 2227) CHLORIDE (test code 105 MEQ/L 95-107 = 2214) CARBON DIOXIDE (test 24 MEQ/L 19-31 code = 220) CALCIUM (test code = 9.6 MG/DL 8.5-10.5 2208) PROTEIN, TOTAL (test 7.3 G/DL 6.1-8.3 code = 222) ALBUMIN (test code = 4.5 G/DL 3.5-5.2 2200) CALC GLOBULIN (test 2.8 G/DL 1.9-3.7 code = 224) CALC A/G RATIO (test 1.6 RATIO 1.0-2.6 code = 223) BILIRUBIN, TOTAL 0.3 MG/DL See_Comment [Automated message] (test code = 2207) The syste m which generated this result transmit christian reference range : <=1.2. The refe rence range was not u sed to interpret th is result as normal/abnormal . ALKALINE PHOSPHATASE 68 U/L 40-142 (test code = 2204) AST (test code = 22 U/L 9-40 2217) ALT (test code = 22 U/L 5-40 2218) LIPID [id number] 04:11:01 Test Item Value Reference Range Interpretation Comments CHOLESTEROL (test 145 MG/DL <200 code = 2210) TRIGLYCERIDES (test 90 MG/DL <150 code = 2232) HDL CHOLESTEROL (test 50 MG/DL >39 code = 2220) CALC LDL CHOL (test 78 MG/DL <100 NOTE: C ALCULATED LDL code = 2237) IS BASED ON RANJAN-LARRY METHOD WHICHINCLUDES ADJUSTABLE TRIGLYCERIDE:VL DL CHOLESTEROL RAT IO.THIS FACTOR VARIES B Y MEASURED TRIGLY CERIDE AND NON-HDLCHOL ESTEROL CONCENTRATIONS WITH INCREASED CALCU LATED LDL SEENIN HIGH ER TRIGLYCERIDE OR LOWER NON-HDL SPECIME NS. FOR MOREINFORMATION , SEE CLIENT ANNOUNCE MENT AT [email or web address] LDL/HDL 1.56 RATIO <3.22 UNLESS O THERWISE (test code = 2238) INDICATED , ALL TESTING PERFORMED [facility], [facility] [address] [place] [address] [facility] DIRECTOR: Ct PONCEIA NUMBER [id number] CAP ACCREDITATION N O. [id number] COMPREHENSIVE METABOLIC [id number] 00:00:00 Test Item Value Reference Range Interpretation Comments GLUCOSE (test code = 2217) 139 MG/DL BUN (test code = 2208) 13 MG/DL CREATININE (test code = 2214) 0.74 MG/DL eGFR (2020 CKD-EPI) (test code 89 ML/MIN/1.73 = 16138) CALC BUN/CREAT (test code = 18 RATIO 2235) SODIUM (test code = 2231) 140 MEQ/L POTASSIUM (test code = 2228) 4.9 MEQ/L CHLORIDE (test code = 2215) 105 MEQ/L CARBON DIOXIDE (test code = 24 MEQ/L 2205) CALCIUM (test code = 2209) 9.6 MG/DL PROTEIN, TOTAL (test code = 7.3 G/DL 2228) ALBUMIN (test code = 2201) 4.5 G/DL CALC GLOBULIN (test code = 2.8 G/DL 2240) CALC A/G RATIO (test code = 1.6 RATIO 4) BILIRUBIN, TOTAL (test code = 0.3 MG/DL 2206) ALKALINE PHOSPHATASE (test 68 U/L code = 2204) AST (test code = 2218) 22 U/L ALT (test code = 2219) 22 U/L HEMOGLOBIN [id number] 00:00:00 Test Item Value Reference Range Interpretation Comments HEMOGLOBIN A1c (test code = 15013) 7.1 % HEMOGLOBIN [id number] 00:00:00 Test Item Value Reference Range Interpretation Comments HEMOGLOBIN A1c (test code = 21600) 7.1 % LIPID [id number] 00:00:00 Test Item Value Reference Range Interpretation Comments CHOLESTEROL (test code = 2210) 145 MG/DL TRIGLYCERIDES (test code = 2232) 90 MG/DL HDL CHOLESTEROL (test code = 2220) 50 MG/DL CALC LDL CHOL (test code = 2237) 78 MG/DL RISK RATIO LDL/HDL (test code = 1.56 RATIO 2238) COMPREHENSIVE METABOLIC [id number] 00:00:00 Test Item Value Reference Range Interpretation Comments GLUCOSE (test code = 2217) 139 MG/DL BUN (test code = 2208) 13 MG/DL CREATININE (test code = 2214) 0.74 MG/DL eGFR (2020 CKD-EPI) (test code 89 ML/MIN/1.73 = 64653) CALC BUN/CREAT (test code = 18 RATIO 2235) SODIUM (test code = 2231) 140 MEQ/L POTASSIUM (test code = 2228) 4.9 MEQ/L CHLORIDE (test code = 2215) 105 MEQ/L CARBON DIOXIDE (test code = 24 MEQ/L 2205) CALCIUM (test code = 2209) 9.6 MG/DL PROTEIN, TOTAL (test code = 7.3 G/DL 2228) ALBUMIN (test code = 2201) 4.5 G/DL CALC GLOBULIN (test code = 2.8 G/DL 2239) CALC A/G RATIO (test code = 1.6 RATIO 2233) BILIRUBIN, TOTAL (test code = 0.3 MG/DL 2206) ALKALINE PHOSPHATASE (test 68 U/L code = 2204) AST (test code = 2218) 22 U/L ALT (test code = 2219) 22 U/L HEMOGLOBIN [id number] 00:00:00 Test Item Value Reference Range Interpretation Comments HEMOGLOBIN A1c (test code = 52912) 7.1 % HEMOGLOBIN [id number] 00:00:00 Test Item Value Reference Range Interpretation Comments HEMOGLOBIN A1c (test code = 39593) 7.1 % LIPID [id number] 00:00:00 Test Item Value Reference Range Interpretation Comments CHOLESTEROL (test code = 2210) 145 MG/DL TRIGLYCERIDES (test code = 2232) 90 MG/DL HDL CHOLESTEROL (test code = 2220) 50 MG/DL CALC LDL CHOL (test code = 2237) 78 MG/DL RISK RATIO LDL/HDL (test code = 1.56 RATIO 2238) COMPREHENSIVE METABOLIC [id number] 00:00:00 Test Item Value Reference Range Interpretation Comments GLUCOSE (test code = 2217) 139 MG/DL BUN (test code = 2208) 13 MG/DL CREATININE (test code = 2214) 0.74 MG/DL eGFR (2020 CKD-EPI) (test code 89 ML/MIN/1.73 = 09868) CALC BUN/CREAT (test code = 18 RATIO 2235) SODIUM (test code = 2231) 140 MEQ/L POTASSIUM (test code = 2228) 4.9 MEQ/L CHLORIDE (test code = 2215) 105 MEQ/L CARBON DIOXIDE (test code = 24 MEQ/L 2206) CALCIUM (test code = 2209) 9.6 MG/DL PROTEIN, TOTAL (test code = 7.3 G/DL 2228) ALBUMIN (test code = 2201) 4.5 G/DL CALC GLOBULIN (test code = 2.8 G/DL 2240) CALC A/G RATIO (test code = 1.6 RATIO 2234) BILIRUBIN, TOTAL (test code = 0.3 MG/DL 2206) ALKALINE PHOSPHATASE (test 68 U/L code = 2204) AST (test code = 2218) 22 U/L ALT (test code = 2219) 22 U/L COMPREHENSIVE METABOLIC [id number] 00:00:00 Test Item Value Reference Range Interpretation Comments GLUCOSE (test code = 2217) 139 MG/DL BUN (test code = 2208) 13 MG/DL CREATININE (test code = 2214) 0.74 MG/DL eGFR (2020 CKD-EPI) (test code 89 ML/MIN/1.73 = 32460) CALC BUN/CREAT (test code = 18 RATIO 2235) SODIUM (test code = 2231) 140 MEQ/L POTASSIUM (test code = 2228) 4.9 MEQ/L CHLORIDE (test code = 2215) 105 MEQ/L CARBON DIOXIDE (test code = 24 MEQ/L 2205) CALCIUM (test code = 2209) 9.6 MG/DL PROTEIN, TOTAL (test code = 7.3 G/DL 2228) ALBUMIN (test code = 2201) 4.5 G/DL CALC GLOBULIN (test code = 2.8 G/DL 2240) CALC A/G RATIO (test code = 1.6 RATIO 2234) BILIRUBIN, TOTAL (test code = 0.3 MG/DL 2206) ALKALINE PHOSPHATASE (test 68 U/L code = 2204) AST (test code = 2218) 22 U/L ALT (test code = 2219) 22 U/L HEMOGLOBIN [id number] 00:00:00 Test Item Value Reference Range Interpretation Comments HEMOGLOBIN A1c (test code = 43588) 7.1 % HEMOGLOBIN [id number] 00:00:00 Test Item Value Reference Range Interpretation Comments HEMOGLOBIN A1c (test code = 86997) 7.1 % HEMOGLOBIN [id number] 00:00:00 Test Item Value Reference Range Interpretation Comments HEMOGLOBIN A1c (test code = 93976) 7.1 % LIPID [id number] 00:00:00 Test Item Value Reference Range Interpretation Comments CHOLESTEROL (test code = 2210) 145 MG/DL TRIGLYCERIDES (test code = 2232) 90 MG/DL HDL CHOLESTEROL (test code = 2220) 50 MG/DL CALC LDL CHOL (test code = 2237) 78 MG/DL RISK RATIO LDL/HDL (test code = 1.56 RATIO 2238) LIPID [id number] 00:00:00 Test Item Value Reference Range Interpretation Comments CHOLESTEROL (test code = 2210) 145 MG/DL TRIGLYCERIDES (test code = 2232) 90 MG/DL HDL CHOLESTEROL (test code = 2220) 50 MG/DL CALC LDL CHOL (test code = 2237) 78 MG/DL RISK RATIO LDL/HDL (test code = 1.56 RATIO 2238) COMPREHENSIVE METABOLIC [id number] 00:00:00 Test Item Value Reference Range Interpretation Comments GLUCOSE (test code = 2217) 139 MG/DL BUN (test code = 2208) 13 MG/DL CREATININE (test code = 2214) 0.74 MG/DL eGFR (2020 CKD-EPI) (test code 89 ML/MIN/1.73 = 25311) CALC BUN/CREAT (test code = 18 RATIO 2235) SODIUM (test code = 2231) 140 MEQ/L POTASSIUM (test code = 2228) 4.9 MEQ/L CHLORIDE (test code = 2215) 105 MEQ/L CARBON DIOXIDE (test code = 24 MEQ/L 2205) CALCIUM (test code = 2209) 9.6 MG/DL PROTEIN, TOTAL (test code = 7.3 G/DL 2228) ALBUMIN (test code = 2201) 4.5 G/DL CALC GLOBULIN (test code = 2.8 G/DL 2239) CALC A/G RATIO (test code = 1.6 RATIO 2234) BILIRUBIN, TOTAL (test code = 0.3 MG/DL 2206) ALKALINE PHOSPHATASE (test 68 U/L code = 2204) AST (test code = 2218) 22 U/L ALT (test code = 2219) 22 U/L HEMOGLOBIN [id number] 00:00:00 Test Item Value Reference Range Interpretation Comments HEMOGLOBIN A1c (test code = 14178) 7.1 % HEMOGLOBIN [id number] 00:00:00 Test Item Value Reference Range Interpretation Comments HEMOGLOBIN A1c (test code = 53229) 7.1 % LIPID [id number] 00:00:00 Test Item Value Reference Range Interpretation Comments CHOLESTEROL (test code = 2210) 145 MG/DL TRIGLYCERIDES (test code = 2232) 90 MG/DL HDL CHOLESTEROL (test code = 2220) 50 MG/DL CALC LDL CHOL (test code = 2237) 78 MG/DL RISK RATIO LDL/HDL (test code = 1.56 RATIO 2237) LIPID [id number] 00:17:06 Test Item Value Reference Range Interpretation Comments CHOLESTEROL (test 152 MG/DL <200 code = 2210) TRIGLYCERIDES (test 110 MG/DL <150 code = 2232) HDL CHOLESTEROL (test 58 MG/DL >39 code = 2220) CALC LDL CHOL (test 74 MG/DL <100 NOTE: C ALCULATED LDL code = 2237) IS BASED ON RANJAN-LARRY METHOD WHICHINCLUDES ADJUSTABLE TRIGLYCERIDE:VL DL CHOLESTEROL RAT IO.THIS FACTOR VARIES B Y MEASURED TRIGLY CERIDE AND NON-HDLCHOL ESTEROL CONCENTRATIONS WITH INCREASED CALCU LATED LDL SEENIN HIGH ER TRIGLYCERIDE OR LOWER NON-HDL SPECIME NS. FOR MOREINFORMATION , SEE CLIENT ANNOUNCE MENT AT [email or web address] RISK RATIO LDL/HDL 1.28 RATIO <3.22 (test code = 2238) COMPREHENSIVE METABOLIC [id number] 00:17:06 Test Item Value Reference Range Interpretation Comments GLUCOSE (test code = 127 MG/DL 70-99 H 2216) BUN (test code = 16 MG/DL 07-08) CREATININE (test 0.73 MG/DL 0.60-1.30 code = 2214) eGFR (2020 CKD-EPI) 91 >60 (test code = 50125) ML/MIN/1.73 CALC BUN/CREAT (test 22 RATIO 6-28 code = 2235) SODIUM (test code = 144 MEQ/L 940-376 6724) POTASSIUM (test code 4.6 MEQ/L 3.5-5.4 = 2228) CHLORIDE (test code 105 MEQ/L 95-107 = 2215) CARBON DIOXIDE (test 27 MEQ/L 19-31 code = 2206) CALCIUM (test code = 9.8 MG/DL 8.5-10.5 2208) PROTEIN, TOTAL (test 7.5 G/DL 6.1-8.3 code = 2229) ALBUMIN (test code = 4.5 G/DL 3.5-5.2 2200) CALC GLOBULIN (test 3.0 G/DL 1.9-3.7 code = 2240) CALC A/G RATIO (test 1.5 RATIO 1.0-2.6 code = 2234) BILIRUBIN, TOTAL 0.4 MG/DL See_Comment [Automated message] (test code = 2207) The [employer] which generated this result transmitted ref erence range: <=1.2. T he reference range was not used to int erpret this result as normal/abnormal . ALKALINE PHOSPHATASE 70 U/L 40-140 (test code = 2204) AST (test code = 17 U/L 9-40 2217) ALT (test code = 19 U/L 5-40 UNLESS OTH ERWISE 2218) INDICATED, ALL TESTING PERFORM [facility], [facility]. [address] [place], [place] [id number] [place] [address] DIRECTOR: MARINA ENRIQUE M.D. CLIA NUMBER [id number] CAP ACCREDITATION N O. [id number] LIPID [id number] 00:00:00 Test Item Value Reference Range Interpretation Comments CHOLESTEROL (test code = 2210) 152 MG/DL TRIGLYCERIDES (test code = 2232) 110 MG/DL HDL CHOLESTEROL (test code = 2220) 58 MG/DL CALC LDL CHOL (test code = 2237) 74 MG/DL RISK RATIO LDL/HDL (test code = 1.28 RATIO 2238) COMPREHENSIVE METABOLIC [id number] 00:00:00 Test Item Value Reference Range Interpretation Comments GLUCOSE (test code = 2217) 127 MG/DL BUN (test code = 2208) 16 MG/DL CREATININE (test code = 2214) 0.73 MG/DL eGFR (2020 CKD-EPI) (test code 91 ML/MIN/1.73 = 89154) CALC BUN/CREAT (test code = 22 RATIO 2235) SODIUM (test code = 2231) 144 MEQ/L POTASSIUM (test code = 2228) 4.6 MEQ/L CHLORIDE (test code = 2215) 105 MEQ/L CARBON DIOXIDE (test code = 27 MEQ/L 220) CALCIUM (test code = 2209) 9.8 MG/DL PROTEIN, TOTAL (test code = 7.5 G/DL 2228) ALBUMIN (test code = 2201) 4.5 G/DL CALC GLOBULIN (test code = 3.0 G/DL 2239) CALC A/G RATIO (test code = 1.5 RATIO 223) BILIRUBIN, TOTAL (test code = 0.4 MG/DL 2206) ALKALINE PHOSPHATASE (test 70 U/L code = 2204) AST (test code = 2218) 17 U/L ALT (test code = 2219) 19 U/L LIPID [id number] 00:00:00 Test Item Value Reference Range Interpretation Comments CHOLESTEROL (test code = 2210) 152 MG/DL TRIGLYCERIDES (test code = 2232) 110 MG/DL HDL CHOLESTEROL (test code = 2220) 58 MG/DL CALC LDL CHOL (test code = 2237) 74 MG/DL RISK RATIO LDL/HDL (test code = 1.28 RATIO 2238) COMPREHENSIVE METABOLIC [id number] 00:00:00 Test Item Value Reference Range Interpretation Comments GLUCOSE (test code = 2217) 127 MG/DL BUN (test code = 2208) 16 MG/DL CREATININE (test code = 2214) 0.73 MG/DL eGFR (2020 CKD-EPI) (test code 91 ML/MIN/1.73 = 26099) CALC BUN/CREAT (test code = 22 RATIO 2235) SODIUM (test code = 2231) 144 MEQ/L POTASSIUM (test code = 2228) 4.6 MEQ/L CHLORIDE (test code = 2215) 105 MEQ/L CARBON DIOXIDE (test code = 27 MEQ/L 220) CALCIUM (test code = 2209) 9.8 MG/DL PROTEIN, TOTAL (test code = 7.5 G/DL 2228) ALBUMIN (test code = 220) 4.5 G/DL CALC GLOBULIN (test code = 3.0 G/DL 2240) CALC A/G RATIO (test code = 1.5 RATIO 2234) BILIRUBIN, TOTAL (test code = 0.4 MG/DL 2206) ALKALINE PHOSPHATASE (test 70 U/L code = 2204) AST (test code = 2218) 17 U/L ALT (test code = 2219) 19 U/L LIPID [id number] 00:00:00 Test Item Value Reference Range Interpretation Comments CHOLESTEROL (test code = 2210) 152 MG/DL TRIGLYCERIDES (test code = 2232) 110 MG/DL HDL CHOLESTEROL (test code = 2220) 58 MG/DL CALC LDL CHOL (test code = 2237) 74 MG/DL RISK RATIO LDL/HDL (test code = 1.28 RATIO 2238) COMPREHENSIVE METABOLIC [id number] 00:00:00 Test Item Value Reference Range Interpretation Comments GLUCOSE (test code = 2217) 127 MG/DL BUN (test code = 2208) 16 MG/DL CREATININE (test code = 2214) 0.73 MG/DL eGFR (2020 CKD-EPI) (test code 91 ML/MIN/1.73 = 39640) CALC BUN/CREAT (test code = 22 RATIO 2235) SODIUM (test code = 2231) 144 MEQ/L POTASSIUM (test code = 2228) 4.6 MEQ/L CHLORIDE (test code = 2215) 105 MEQ/L CARBON DIOXIDE (test code = 27 MEQ/L 2205) CALCIUM (test code = 2209) 9.8 MG/DL PROTEIN, TOTAL (test code = 7.5 G/DL 2228) ALBUMIN (test code = 2201) 4.5 G/DL CALC GLOBULIN (test code = 3.0 G/DL 2240) CALC A/G RATIO (test code = 1.5 RATIO 2234) BILIRUBIN, TOTAL (test code = 0.4 MG/DL 2206) ALKALINE PHOSPHATASE (test 70 U/L code = 2204) AST (test code = 2218) 17 U/L ALT (test code = 2219) 19 U/L LIPID [id number] 00:00:00 Test Item Value Reference Range Interpretation Comments CHOLESTEROL (test code = 2210) 152 MG/DL TRIGLYCERIDES (test code = 2232) 110 MG/DL HDL CHOLESTEROL (test code = 2220) 58 MG/DL CALC LDL CHOL (test code = 2237) 74 MG/DL RISK RATIO LDL/HDL (test code = 1.28 RATIO 2238) LIPID [id number] 00:00:00 Test Item Value Reference Range Interpretation Comments CHOLESTEROL (test code = 2210) 152 MG/DL TRIGLYCERIDES (test code = 2232) 110 MG/DL HDL CHOLESTEROL (test code = 2220) 58 MG/DL CALC LDL CHOL (test code = 2237) 74 MG/DL RISK RATIO LDL/HDL (test code = 1.28 RATIO 2238) COMPREHENSIVE METABOLIC [id number] 00:00:00 Test Item Value Reference Range Interpretation Comments GLUCOSE (test code = 2217) 127 MG/DL BUN (test code = 2208) 16 MG/DL CREATININE (test code = 2214) 0.73 MG/DL eGFR (2020 CKD-EPI) (test code 91 ML/MIN/1.73 = 71307) CALC BUN/CREAT (test code = 22 RATIO 2235) SODIUM (test code = 2231) 144 MEQ/L POTASSIUM (test code = 2228) 4.6 MEQ/L CHLORIDE (test code = 2215) 105 MEQ/L CARBON DIOXIDE (test code = 27 MEQ/L 2205) CALCIUM (test code = 2209) 9.8 MG/DL PROTEIN, TOTAL (test code = 7.5 G/DL 2228) ALBUMIN (test code = 2201) 4.5 G/DL CALC GLOBULIN (test code = 3.0 G/DL 0) CALC A/G RATIO (test code = 1.5 RATIO 2234) BILIRUBIN, TOTAL (test code = 0.4 MG/DL 2206) ALKALINE PHOSPHATASE (test 70 U/L code = 2204) AST (test code = 2218) 17 U/L ALT (test code = 2219) 19 U/L COMPREHENSIVE METABOLIC [id number] 00:00:00 Test Item Value Reference Range Interpretation Comments GLUCOSE (test code = 2217) 127 MG/DL BUN (test code = 2208) 16 MG/DL CREATININE (test code = 2214) 0.73 MG/DL eGFR (2020 CKD-EPI) (test code 91 ML/MIN/1.73 = 01321) CALC BUN/CREAT (test code = 22 RATIO 2235) SODIUM (test code = 2231) 144 MEQ/L POTASSIUM (test code = 2228) 4.6 MEQ/L CHLORIDE (test code = 2215) 105 MEQ/L CARBON DIOXIDE (test code = 27 MEQ/L 2205) CALCIUM (test code = 220) 9.8 MG/DL PROTEIN, TOTAL (test code = 7.5 G/DL 2228) ALBUMIN (test code = 220) 4.5 G/DL CALC GLOBULIN (test code = 3.0 G/DL 2239) CALC A/G RATIO (test code = 1.5 RATIO 2233) BILIRUBIN, TOTAL (test code = 0.4 MG/DL 2206) ALKALINE PHOSPHATASE (test 70 U/L code = 2203) AST (test code = 2218) 17 U/L ALT (test code = 221) 19 U/L HEMOGLOBIN [id number] 05:27:33 Test Item Value Reference Range Interpretation Comments HEMOGLOBIN A1c (test 6.7 % 4.2-5.6 H AMERIC AN DIABETES code = 88701) ASSOCIATION IDELINES FOR HGB A1C: PREDIABETES/INC REASED RISK . . . . . . . 5.7 -6.4% DIAGNOSIS OF DI ABETES . . . . . . . . . >=6 .5% WITH CONFIRMATION OR APPROPRIATE SYMPTOMS NOTE: ASSAY MAY BE AFFECTED BY HEMOGLOBINOPATH IES (SICKLE CELL ANEMIA, S- C DISEASE, OTHERS) OR PINEDA FICIALLY LOWERED BY DECR EASED RED CELL SURVIVAL ( HEMOLYTIC ANEMIAS, BLOOD LOSS, ETC.). CONSIDER ALTERN ATE TESTING OR LABORATORY C ONSULTATION. CBC W/AUTO DIFF WITH [id number] 03:37:49 Test Item Value Reference Range Interpretation [...] = 1036) NUCLEATED RBCS (test 0.0 /100 WBC'S See_Comment [Aut omated code = 1065) message] The sy stem which generated this [...] RBCS 0.00 K/UL 0.00-0.11 (test code = 12002) CBC W/AUTO [id number] 00:00:00 Test Item Value Reference Range Interpretation Comments WBC (test code = 1001) 4.0 K/UL RBC (test code = 1002) 4.33 M/UL HEMOGLOBIN (test code = 1003) 13.3 G/DL HEMATOCRIT (test code = 1004) 38.6 % MCV (test code = 1005) 89.1 fL MCH (test code = 1006) 30.7 PG MCHC (test code = 1007) 34.5 G/DL RDW (test code = 1038) 12.4 % NEUTROPHILS (test code = 1008) 46.9 % LYMPHOCYTES (test code = 1010) 40.1 % MONOCYTES (test code = 1011) 7.9 % EOSINOPHILS (test code = 1012) 3.7 % BASOPHILS (test code = 1013) 1.2 % IMMATURE GRANYLOCYTES (test 0.2 % code = 1036) NUCLEATED RBCS (test code = 0.0 /100WBC'S 1065) PLATELET COUNT (test code = 250 K/UL 1015) ABSOLUTE NEUTROPHILS (test code 1.89 K/UL = 1066) ABSOLUTE LYMPHOCYTES (test code 1.62 K/UL = 1067) ABSOLUTE MONOCYTES (test code = 0.32 K/UL 1068) ABSOLUTE EOSINOPHILS (test code 0.15 K/UL = 1040) ABSOLUTE BASOPHILS (test code = 0.05 K/UL 1069) ABS IMMATURE GRANULOCYTES (test 0.01 K/UL code = 1020) ABS NUCLEATED RBCS (test code = 0.00 K/UL 40488) CBC W/AUTO [id number] 00:00:00 Test Item Value Reference Range Interpretation Comments WBC (test code = 1001) 4.0 K/UL RBC (test code = 1002) 4.33 M/UL HEMOGLOBIN (test code = 1003) 13.3 G/DL HEMATOCRIT (test code = 1004) 38.6 % MCV (test code = 1005) 89.1 fL MCH (test code = 1006) 30.7 PG MCHC (test code = 1007) 34.5 G/DL RDW (test code = 1038) 12.4 % NEUTROPHILS (test code = 1008) 46.9 % LYMPHOCYTES (test code = 1010) 40.1 % MONOCYTES (test code = 1011) 7.9 % EOSINOPHILS (test code = 1012) 3.7 % BASOPHILS (test code = 1013) 1.2 % IMMATURE GRANYLOCYTES (test 0.2 % code = 1036) NUCLEATED RBCS (test code = 0.0 /100WBC'S 1065) PLATELET COUNT (test code = 250 K/UL 1015) ABSOLUTE NEUTROPHILS (test code 1.89 K/UL = 1066) ABSOLUTE LYMPHOCYTES (test code 1.62 K/UL = 1067) ABSOLUTE MONOCYTES (test code = 0.32 K/UL 1068) ABSOLUTE EOSINOPHILS (test code 0.15 K/UL = 1040) ABSOLUTE BASOPHILS (test code = 0.05 K/UL 1069) ABS IMMATURE GRANULOCYTES (test 0.01 K/UL code = 1020) ABS NUCLEATED RBCS (test code = 0.00 K/UL 04311) HEMOGLOBIN [id number] 00:00:00 Test Item Value Reference Range Interpretation Comments HEMOGLOBIN A1c (test code = 23820) 6.7 % HEMOGLOBIN [id number] 00:00:00 Test Item Value Reference Range Interpretation Comments HEMOGLOBIN A1c (test code = 34074) 6.7 % CBC W/AUTO [id number] 00:00:00 Test Item Value Reference Range Interpretation Comments WBC (test code = 1001) 4.0 K/UL RBC (test code = 1002) 4.33 M/UL HEMOGLOBIN (test code = 1003) 13.3 G/DL HEMATOCRIT (test code = 1004) 38.6 % MCV (test code = 1005) 89.1 fL MCH (test code = 1006) 30.7 PG MCHC (test code = 1007) 34.5 G/DL RDW (test code = 1038) 12.4 % NEUTROPHILS (test code = 1008) 46.9 % LYMPHOCYTES (test code = 1010) 40.1 % MONOCYTES (test code = 1011) 7.9 % EOSINOPHILS (test code = 1012) 3.7 % BASOPHILS (test code = 1013) 1.2 % IMMATURE GRANYLOCYTES (test 0.2 % code = 1036) NUCLEATED RBCS (test code = 0.0 /100WBC'S 1065) PLATELET COUNT (test code = 250 K/UL 1015) ABSOLUTE NEUTROPHILS (test code 1.89 K/UL = 1066) ABSOLUTE LYMPHOCYTES (test code 1.62 K/UL = 1067) ABSOLUTE MONOCYTES (test code = 0.32 K/UL 1068) ABSOLUTE EOSINOPHILS (test code 0.15 K/UL = 1040) ABSOLUTE BASOPHILS (test code = 0.05 K/UL 1069) ABS IMMATURE GRANULOCYTES (test 0.01 K/UL code = 1020) ABS NUCLEATED RBCS (test code = 0.00 K/UL 80689) CBC W/AUTO [id number] 00:00:00 Test Item Value Reference Range Interpretation Comments WBC (test code = 1001) 4.0 K/UL RBC (test code = 1002) 4.33 M/UL HEMOGLOBIN (test code = 1003) 13.3 G/DL HEMATOCRIT (test code = 1004) 38.6 % MCV (test code = 1005) 89.1 fL MCH (test code = 1006) 30.7 PG MCHC (test code = 1007) 34.5 G/DL RDW (test code = 1038) 12.4 % NEUTROPHILS (test code = 1008) 46.9 % LYMPHOCYTES (test code = 1010) 40.1 % MONOCYTES (test code = 1011) 7.9 % EOSINOPHILS (test code = 1012) 3.7 % BASOPHILS (test code = 1013) 1.2 % IMMATURE GRANYLOCYTES (test 0.2 % code = 1036) NUCLEATED RBCS (test code = 0.0 /100WBC'S 1065) PLATELET COUNT (test code = 250 K/UL 1015) ABSOLUTE NEUTROPHILS (test code 1.89 K/UL = 1066) ABSOLUTE LYMPHOCYTES (test code 1.62 K/UL = 1067) ABSOLUTE MONOCYTES (test code = 0.32 K/UL 1068) ABSOLUTE EOSINOPHILS (test code 0.15 K/UL = 1040) ABSOLUTE BASOPHILS (test code = 0.05 K/UL 1069) ABS IMMATURE GRANULOCYTES (test 0.01 K/UL code = 1020) ABS NUCLEATED RBCS (test code = 0.00 K/UL 71059) HEMOGLOBIN [id number] 00:00:00 Test Item Value Reference Range Interpretation Comments HEMOGLOBIN A1c (test code = 64266) 6.7 % HEMOGLOBIN [id number] 00:00:00 Test Item Value Reference Range Interpretation Comments HEMOGLOBIN A1c (test code = 61189) 6.7 % CBC W/AUTO [id number] 00:00:00 Test Item Value Reference Range Interpretation Comments WBC (test code = 1001) 4.0 K/UL RBC (test code = 1002) 4.33 M/UL HEMOGLOBIN (test code = 1003) 13.3 G/DL HEMATOCRIT (test code = 1004) 38.6 % MCV (test code = 1005) 89.1 fL MCH (test code = 1006) 30.7 PG MCHC (test code = 1007) 34.5 G/DL RDW (test code = 1038) 12.4 % NEUTROPHILS (test code = 1008) 46.9 % LYMPHOCYTES (test code = 1010) 40.1 % MONOCYTES (test code = 1011) 7.9 % EOSINOPHILS (test code = 1012) 3.7 % BASOPHILS (test code = 1013) 1.2 % IMMATURE GRANYLOCYTES (test 0.2 % code = 1036) NUCLEATED RBCS (test code = 0.0 /100WBC'S 1065) PLATELET COUNT (test code = 250 K/UL 1015) ABSOLUTE NEUTROPHILS (test code 1.89 K/UL = 1066) ABSOLUTE LYMPHOCYTES (test code 1.62 K/UL = 1067) ABSOLUTE MONOCYTES (test code = 0.32 K/UL 1068) ABSOLUTE EOSINOPHILS (test code 0.15 K/UL = 1040) ABSOLUTE BASOPHILS (test code = 0.05 K/UL 1069) ABS IMMATURE GRANULOCYTES (test 0.01 K/UL code = 1020) ABS NUCLEATED RBCS (test code = 0.00 K/UL 09160) CBC W/AUTO [id number] 00:00:00 Test Item Value Reference Range Interpretation Comments WBC (test code = 1001) 4.0 K/UL RBC (test code = 1002) 4.33 M/UL HEMOGLOBIN (test code = 1003) 13.3 G/DL HEMATOCRIT (test code = 1004) 38.6 % MCV (test code = 1005) 89.1 fL MCH (test code = 1006) 30.7 PG MCHC (test code = 1007) 34.5 G/DL RDW (test code = 1038) 12.4 % NEUTROPHILS (test code = 1008) 46.9 % LYMPHOCYTES (test code = 1010) 40.1 % MONOCYTES (test code = 1011) 7.9 % EOSINOPHILS (test code = 1012) 3.7 % BASOPHILS (test code = 1013) 1.2 % IMMATURE GRANYLOCYTES (test 0.2 % code = 1036) NUCLEATED RBCS (test code = 0.0 /100WBC'S 1065) PLATELET COUNT (test code = 250 K/UL 1015) ABSOLUTE NEUTROPHILS (test code 1.89 K/UL = 1066) ABSOLUTE LYMPHOCYTES (test code 1.62 K/UL = 1067) ABSOLUTE MONOCYTES (test code = 0.32 K/UL 1068) ABSOLUTE EOSINOPHILS (test code 0.15 K/UL = 1040) ABSOLUTE BASOPHILS (test code = 0.05 K/UL 1069) ABS IMMATURE GRANULOCYTES (test 0.01 K/UL code = 1020) ABS NUCLEATED RBCS (test code = 0.00 K/UL 97074) CBC W/AUTO [id number] 00:00:00 Test Item Value Reference Range Interpretation Comments WBC (test code = 1001) 4.0 K/UL RBC (test code = 1002) 4.33 M/UL HEMOGLOBIN (test code = 1003) 13.3 G/DL HEMATOCRIT (test code = 1004) 38.6 % MCV (test code = 1005) 89.1 fL MCH (test code = 1006) 30.7 PG MCHC (test code = 1007) 34.5 G/DL RDW (test code = 1038) 12.4 % NEUTROPHILS (test code = 1008) 46.9 % LYMPHOCYTES (test code = 1010) 40.1 % MONOCYTES (test code = 1011) 7.9 % EOSINOPHILS (test code = 1012) 3.7 % BASOPHILS (test code = 1013) 1.2 % IMMATURE GRANYLOCYTES (test 0.2 % code = 1036) NUCLEATED RBCS (test code = 0.0 /100WBC'S 1065) PLATELET COUNT (test code = 250 K/UL 1015) ABSOLUTE NEUTROPHILS (test code 1.89 K/UL = 1066) ABSOLUTE LYMPHOCYTES (test code 1.62 K/UL = 1067) ABSOLUTE MONOCYTES (test code = 0.32 K/UL 1068) ABSOLUTE EOSINOPHILS (test code 0.15 K/UL = 1040) ABSOLUTE BASOPHILS (test code = 0.05 K/UL 1069) ABS IMMATURE GRANULOCYTES (test 0.01 K/UL code = 1020) ABS NUCLEATED RBCS (test code = 0.00 K/UL 27082) HEMOGLOBIN [id number] 00:00:00 Test Item Value Reference Range Interpretation Comments HEMOGLOBIN A1c (test code = 16457) 6.7 % HEMOGLOBIN [id number] 00:00:00 Test Item Value Reference Range Interpretation Comments HEMOGLOBIN A1c (test code = 89706) 6.7 % HEMOGLOBIN [id number] 00:00:00 Test Item Value Reference Range Interpretation Comments HEMOGLOBIN A1c (test code = 99351) 6.7 % CBC W/AUTO [id number] 00:00:00 Test Item Value Reference Range Interpretation Comments WBC (test code = 1001) 4.0 K/UL RBC (test code = 1002) 4.33 M/UL HEMOGLOBIN (test code = 1003) 13.3 G/DL HEMATOCRIT (test code = 1004) 38.6 % MCV (test code = 1005) 89.1 fL MCH (test code = 1006) 30.7 PG MCHC (test code = 1007) 34.5 G/DL RDW (test code = 1038) 12.4 % NEUTROPHILS (test code = 1008) 46.9 % LYMPHOCYTES (test code = 1010) 40.1 % MONOCYTES (test code = 1011) 7.9 % EOSINOPHILS (test code = 1012) 3.7 % BASOPHILS (test code = 1013) 1.2 % IMMATURE GRANYLOCYTES (test 0.2 % code = 1036) NUCLEATED RBCS (test code = 0.0 /100WBC'S 1065) PLATELET COUNT (test code = 250 K/UL 1015) ABSOLUTE NEUTROPHILS (test code 1.89 K/UL = 1066) ABSOLUTE LYMPHOCYTES (test code 1.62 K/UL = 1067) ABSOLUTE MONOCYTES (test code = 0.32 K/UL 1068) ABSOLUTE EOSINOPHILS (test code 0.15 K/UL = 1040) ABSOLUTE BASOPHILS (test code = 0.05 K/UL 1069) ABS IMMATURE GRANULOCYTES (test 0.01 K/UL code = 1020) ABS NUCLEATED RBCS (test code = 0.00 K/UL 64478) CBC W/AUTO [id number] 00:00:00 Test Item Value Reference Range Interpretation Comments WBC (test code = 1001) 4.0 K/UL RBC (test code = 1002) 4.33 M/UL HEMOGLOBIN (test code = 1003) 13.3 G/DL HEMATOCRIT (test code = 1004) 38.6 % MCV (test code = 1005) 89.1 fL MCH (test code = 1006) 30.7 PG MCHC (test code = 1007) 34.5 G/DL RDW (test code = 1038) 12.4 % NEUTROPHILS (test code = 1008) 46.9 % LYMPHOCYTES (test code = 1010) 40.1 % MONOCYTES (test code = 1011) 7.9 % EOSINOPHILS (test code = 1012) 3.7 % BASOPHILS (test code = 1013) 1.2 % IMMATURE GRANYLOCYTES (test 0.2 % code = 1036) NUCLEATED RBCS (test code = 0.0 /100WBC'S 1065) PLATELET COUNT (test code = 250 K/UL 1015) ABSOLUTE NEUTROPHILS (test code 1.89 K/UL = 1066) ABSOLUTE LYMPHOCYTES (test code 1.62 K/UL = 1067) ABSOLUTE MONOCYTES (test code = 0.32 K/UL 1068) ABSOLUTE EOSINOPHILS (test code 0.15 K/UL = 1040) ABSOLUTE BASOPHILS (test code = 0.05 K/UL 1069) ABS IMMATURE GRANULOCYTES (test 0.01 K/UL code = 1020) ABS NUCLEATED RBCS (test code = 0.00 K/UL 84064) HEMOGLOBIN [id number] 00:00:00 Test Item Value Reference Range Interpretation Comments HEMOGLOBIN A1c (test code = 25878) 6.7 % HEMOGLOBIN [id number] 00:00:00 Test Item Value Reference Range Interpretation Comments HEMOGLOBIN A1c (test code = 84371) 6.7 % HEMOGLOBIN [id number] 00:00:00 Test Item Value Reference Range Interpretation Comments HEMOGLOBIN A1c (test code = 24815) 6.5 % HEMOGLOBIN [id number] 00:00:00 Test Item Value Reference Range Interpretation Comments HEMOGLOBIN A1c (test code = 52686) 6.5 % HEMOGLOBIN [id number] 00:00:00 Test Item Value Reference Range Interpretation Comments HEMOGLOBIN A1c (test code = 43065) 6.5 % HEMOGLOBIN [id number] 00:00:00 Test Item Value Reference Range Interpretation Comments HEMOGLOBIN A1c (test code = 44706) 6.5 % HEMOGLOBIN [id number] 00:00:00 Test Item Value Reference Range Interpretation Comments HEMOGLOBIN A1c (test code = 75231) 6.5 % HEMOGLOBIN [id number] 00:00:00 Test Item Value Reference Range Interpretation Comments HEMOGLOBIN A1c (test code = 85624) 6.5 % HEMOGLOBIN [id number] 00:00:00 Test Item Value Reference Range Interpretation Comments HEMOGLOBIN A1c (test code = 13329) 6.5 % HEMOGLOBIN [id number] 00:00:00 Test Item Value Reference Range Interpretation Comments HEMOGLOBIN A1c (test code = 50605) 6.5 % HEMOGLOBIN [id number] 00:00:00 Test Item Value Reference Range Interpretation Comments HEMOGLOBIN A1c (test code = 43199) 6.5 % NM MYOCARDIUM PERFUSION STRESS AND [id number] 21:38:161. ?The patient's electrocardiogram is nonischemic.2. ?The patient's clinical response is asymptomatic for angina. 3. ?Overall left ventricular systolic function is normal.4. ?SPECT imaging reveals normal uptake of radiopharmaceutical agents inall of wall segments in both stress and rest images5. ?No reversible defect noted. I was present for the stress portion of the study. [facility] Lexiscan Stress Test Report PROCEDURE:After obtaining witnessed informed consent, patient underwent a Regadenosonnuclear stress test using a one-day protocol. The patient was administered0.4 mg. Regadenoson over 10 seconds intravenously. Myocardial perfusionSPECT imaging was performed atrest after the intravenous injection of 16.4 mCi of Technetium 99m Tetrofosmin. During the stress portion of the test43.2 mCi of Technetium 99m Tetrofosmin was injected intravenously at 10seconds afterthe Regadenoson infusion at peak pharmacologic effect. Thestress [...] * ?The left ventricle ejection fraction is ryan culated to be 73 % at stressand 71% at rest. * ?Regional wall motion analysis of the left ventricle reveals is normal. * ?TID: 1.05 [facility], Radiant Results Inft User - 06/11/2021 4:39 PM CDTFormatting ofthis note might be different from the original.[facility] Lexiscan Stress Test ReportPROCEDURE:After obtaining witnessed informed [...] being supine. Images were processed according to [facility]ul[facility] hospitalines. Short, horizontal long, long axis slices, raw data cines, polarplot, and wall motion analysis were reviewed. FINDINGS:* During the Regadenoson administration, no symptoms were noted. * Please refer ECG report for fulldetails. * The overall technical quality of the study is good. * Raw cine data reveals no significant abnormality. * SPECT imaging reveals normal uptake of radiopharmaceutical agents in allof wall segments in both stress and rest images. * Post-stress LV end- diastolic volume is 47 ml and LV end-systolic volumeis 13 ml. * The left ventricle ejection fraction is calculated to be 73 % at stressand 71% at rest. * Regional wall motion analysis of the left ventricle reveals is normal. * TID: [id number]. The patient's electrocardiogram is nonischemic.2. The patient's clinical response is asymptomaticfor angina. 3. Overall left ventricular systolic function is normal.4. SPECT imaging reveals normal uptake of radiopharmaceutical agents inall of wall segments in both stress and rest images5. No reversible defect noted. I was present for the stress portion of the study.[facility] [id number] 00:00:00 Test Item Value Reference Range Interpretation Comments GLUCOSE (test code = 2217) 125 MG/DL BUN (test code = 2208) 13 MG/DL CREATININE (test code = 2214) 0.62 MG/DL eGFR AMER. (test code 110 ML/MIN/1.73 = 39342) eGFR NON- AMER. (test 95 ML/MIN/1.73 code = 04959) CALC BUN/CREAT (test code = 21 RATIO 2235) SODIUM (test code = 2231) 139 MEQ/L POTASSIUM (test code = 2228) 4.2 MEQ/L CHLORIDE (test code = 2215) 105 MEQ/L CARBON DIOXIDE (test code = 24 MEQ/L 2206) CALCIUM (test code = 2209) 9.5 MG/DL PROTEIN, TOTAL (test code = 7.0 G/DL 2228) ALBUMIN (test code = 2201) 4.2 G/DL CALC GLOBULIN (test code = 2.8 G/DL 2239) CALC A/G RATIO (test code = 1.5 RATIO 2234) BILIRUBIN, TOTAL (test code = 0.3 MG/DL 2206) ALKALINE PHOSPHATASE (test 58 U/L code = 2204) AST (test code = 2218) 14 U/L ALT (test code = 2219) 12 U/L [id number] 00:00:00 Test Item Value Reference Range Interpretation Comments TSH, THIRD GENERATION (test code 2.300 UIU/ML = 2821) [id number] 00:00:00 Test Item Value Reference Range Interpretation Comments TSH, THIRD GENERATION (test code 2.300 UIU/ML = 2821) HEMOGLOBIN [id number] 00:00:00 Test Item Value Reference Range Interpretation Comments HEMOGLOBIN A1c (test code = 45378) 6.6 % HEMOGLOBIN [id number] 00:00:00 Test Item Value Reference Range Interpretation Comments HEMOGLOBIN A1c (test code = 69951) 6.6 % LIPID [id number] 00:00:00 Test Item Value Reference Range Interpretation Comments CHOLESTEROL (test code = 2210) 177 MG/DL TRIGLYCERIDES (test code = 2232) 77 MG/DL HDL CHOLESTEROL (test code = 2220) 59 MG/DL CALC LDL CHOL (test code = 2237) 101 MG/DL RISK RATIO LDL/HDL (test code = 1.71 RATIO 2238) COMPREHENSIVE METABOLIC [id number] 00:00:00 Test Item Value Reference Range Interpretation Comments GLUCOSE (test code = 2217) 125 MG/DL BUN (test code = 2208) 13 MG/DL CREATININE (test code = 2214) 0.62 MG/DL eGFR AMER. (test code 110 ML/MIN/1.73 = 54769) eGFR NON- AMER. (test 95 ML/MIN/1.73 code = 41469) CALC BUN/CREAT (test code = 21 RATIO 2235) SODIUM (test code = 2231) 139 MEQ/L POTASSIUM (test code = 2228) 4.2 MEQ/L CHLORIDE (test code = 2215) 105 MEQ/L CARBON DIOXIDE (test code = 24 MEQ/L 2205) CALCIUM (test code = 2209) 9.5 MG/DL PROTEIN, TOTAL (test code = 7.0 G/DL 2228) ALBUMIN (test code = 2201) 4.2 G/DL CALC GLOBULIN (test code = 2.8 G/DL 2239) CALC A/G RATIO (test code = 1.5 RATIO 2234) BILIRUBIN, TOTAL (test code = 0.3 MG/DL 2206) ALKALINE PHOSPHATASE (test 58 U/L code = 2204) AST (test code = 2218) 14 U/L ALT (test code = 2219) 12 U/L [id number] 00:00:00 Test Item Value Reference Range Interpretation Comments TSH, THIRD GENERATION (test code 2.300 UIU/ML = 2821) [id number] 00:00:00 Test Item Value Reference Range Interpretation Comments TSH, THIRD GENERATION (test code 2.300 UIU/ML = 2821) HEMOGLOBIN [id number] 00:00:00 Test Item Value Reference Range Interpretation Comments HEMOGLOBIN A1c (test code = 92192) 6.6 % HEMOGLOBIN [id number] 00:00:00 Test Item Value Reference Range Interpretation Comments HEMOGLOBIN A1c (test code = 08902) 6.6 % LIPID [id number] 00:00:00 Test Item Value Reference Range Interpretation Comments CHOLESTEROL (test code = 2210) 177 MG/DL TRIGLYCERIDES (test code = 2232) 77 MG/DL HDL CHOLESTEROL (test code = 2220) 59 MG/DL CALC LDL CHOL (test code = 2237) 101 MG/DL RISK RATIO LDL/HDL (test code = 1.71 RATIO 2238) COMPREHENSIVE METABOLIC [id number] 00:00:00 Test Item Value Reference Range Interpretation Comments GLUCOSE (test code = 2217) 125 MG/DL BUN (test code = 2208) 13 MG/DL CREATININE (test code = 2214) 0.62 MG/DL eGFR AMER. (test code 110 ML/MIN/1.73 = 78909) eGFR NON- AMER. (test 95 ML/MIN/1.73 code = 98939) CALC BUN/CREAT (test code = 21 RATIO 2235) SODIUM (test code = 2231) 139 MEQ/L POTASSIUM (test code = 2228) 4.2 MEQ/L CHLORIDE (test code = 2215) 105 MEQ/L CARBON DIOXIDE (test code = 24 MEQ/L 2205) CALCIUM (test code = 2209) 9.5 MG/DL PROTEIN, TOTAL (test code = 7.0 G/DL 2228) ALBUMIN (test code = 2201) 4.2 G/DL CALC GLOBULIN (test code = 2.8 G/DL 2239) CALC A/G RATIO (test code = 1.5 RATIO 2233) BILIRUBIN, TOTAL (test code = 0.3 MG/DL 2206) ALKALINE PHOSPHATASE (test 58 U/L code = 2204) AST (test code = 2218) 14 U/L ALT (test code = 2219) 12 U/L [id number] 00:00:00 Test Item Value Reference Range Interpretation Comments TSH, THIRD GENERATION (test code 2.300 UIU/ML = 2821) [id number] 00:00:00 Test Item Value Reference Range Interpretation Comments TSH, THIRD GENERATION (test code 2.300 UIU/ML = 2821) HEMOGLOBIN [id number] 00:00:00 Test Item Value Reference Range Interpretation Comments HEMOGLOBIN A1c (test code = 71254) 6.6 % HEMOGLOBIN [id number] 00:00:00 Test Item Value Reference Range Interpretation Comments HEMOGLOBIN A1c (test code = 29653) 6.6 % HEMOGLOBIN [id number] 00:00:00 Test Item Value Reference Range Interpretation Comments HEMOGLOBIN A1c (test code = 36768) 6.6 % LIPID [id number] 00:00:00 Test Item Value Reference Range Interpretation Comments CHOLESTEROL (test code = 2210) 177 MG/DL TRIGLYCERIDES (test code = 2232) 77 MG/DL HDL CHOLESTEROL (test code = 2220) 59 MG/DL CALC LDL CHOL (test code = 2237) 101 MG/DL RISK RATIO LDL/HDL (test code = 1.71 RATIO 2238) LIPID [id number] 00:00:00 Test Item Value Reference Range Interpretation Comments CHOLESTEROL (test code = 2210) 177 MG/DL TRIGLYCERIDES (test code = 2232) 77 MG/DL HDL CHOLESTEROL (test code = 2220) 59 MG/DL CALC LDL CHOL (test code = 2237) 101 MG/DL RISK RATIO LDL/HDL (test code = 1.71 RATIO 2238) COMPREHENSIVE METABOLIC [id number] 00:00:00 Test Item Value Reference Range Interpretation Comments GLUCOSE (test code = 2217) 125 MG/DL BUN (test code = 2208) 13 MG/DL CREATININE (test code = 2214) 0.62 MG/DL eGFR AMER. (test code 110 ML/MIN/1.73 = 06736) eGFR NON- AMER. (test 95 ML/MIN/1.73 code = 11421) CALC BUN/CREAT (test code = 21 RATIO 2235) SODIUM (test code = 2231) 139 MEQ/L POTASSIUM (test code = 2228) 4.2 MEQ/L CHLORIDE (test code = 2215) 105 MEQ/L CARBON DIOXIDE (test code = 24 MEQ/L 220) CALCIUM (test code = 2209) 9.5 MG/DL PROTEIN, TOTAL (test code = 7.0 G/DL 2228) ALBUMIN (test code = 2201) 4.2 G/DL CALC GLOBULIN (test code = 2.8 G/DL 2239) CALC A/G RATIO (test code = 1.5 RATIO 2234) BILIRUBIN, TOTAL (test code = 0.3 MG/DL 2206) ALKALINE PHOSPHATASE (test 58 U/L code = 2204) AST (test code = 2218) 14 U/L ALT (test code = 2219) 12 U/L COMPREHENSIVE METABOLIC [id number] 00:00:00 Test Item Value Reference Range Interpretation Comments GLUCOSE (test code = 2217) 125 MG/DL BUN (test code = 2208) 13 MG/DL CREATININE (test code = 2214) 0.62 MG/DL eGFR AMER. (test code 110 ML/MIN/1.73 = 60197) eGFR NON- AMER. (test 95 ML/MIN/1.73 code = 85353) CALC BUN/CREAT (test code = 21 RATIO 2235) SODIUM (test code = 2231) 139 MEQ/L POTASSIUM (test code = 2228) 4.2 MEQ/L CHLORIDE (test code = 2215) 105 MEQ/L CARBON DIOXIDE (test code = 24 MEQ/L 220) CALCIUM (test code = 2209) 9.5 MG/DL PROTEIN, TOTAL (test code = 7.0 G/DL 2228) ALBUMIN (test code = 2201) 4.2 G/DL CALC GLOBULIN (test code = 2.8 G/DL 2240) CALC A/G RATIO (test code = 1.5 RATIO 2234) BILIRUBIN, TOTAL (test code = 0.3 MG/DL 2206) ALKALINE PHOSPHATASE (test 58 U/L code = 2204) AST (test code = 2218) 14 U/L ALT (test code = 2219) 12 U/L [id number] 00:00:00 Test Item Value Reference Range Interpretation Comments TSH, THIRD GENERATION (test code 2.300 UIU/ML = 2821) [id number] 00:00:00 Test Item Value Reference Range Interpretation Comments TSH, THIRD GENERATION (test code 2.300 UIU/ML = 2821) [id number] 00:00:00 Test Item Value Reference Range Interpretation Comments TSH, THIRD GENERATION (test code 2.300 UIU/ML = 2821) HEMOGLOBIN [id number] 00:00:00 Test Item Value Reference Range Interpretation Comments HEMOGLOBIN A1c (test code = 83954) 6.6 % HEMOGLOBIN [id number] 00:00:00 Test Item Value Reference Range Interpretation Comments HEMOGLOBIN A1c (test code = 07876) 6.6 % LIPID [id number] 00:00:00 Test Item Value Reference Range Interpretation Comments CHOLESTEROL (test code = 2210) 177 MG/DL TRIGLYCERIDES (test code = 2232) 77 MG/DL HDL CHOLESTEROL (test code = 2220) 59 MG/DL CALC LDL CHOL (test code = 2237) 101 MG/DL RISK RATIO LDL/HDL (test code = 1.71 RATIO 2238) LIPID [id number] 00:00:00 Test Item Value Reference Range Interpretation Comments CHOLESTEROL (test code = 2210) 191 MG/DL TRIGLYCERIDES (test code = 2232) 168 MG/DL HDL CHOLESTEROL (test code = 2220) 50 MG/DL CALC LDL CHOL (test code = 2237) 113 MG/DL RISK RATIO LDL/HDL (test code = 2.26 RATIO 2238) COMPREHENSIVE METABOLIC [id number] 00:00:00 Test Item Value Reference Range Interpretation Comments GLUCOSE (test code = 2217) 107 MG/DL BUN (test code = 2208) 18 MG/DL CREATININE (test code = 2214) 0.66 MG/DL eGFR AMER. (test code 108 ML/MIN/1.73 = 25629) eGFR NON- AMER. (test 93 ML/MIN/1.73 code = 85131) CALC BUN/CREAT (test code = 27 RATIO 2235) SODIUM (test code = 2231) 139 MEQ/L POTASSIUM (test code = 2228) 4.2 MEQ/L CHLORIDE (test code = 2215) 103 MEQ/L CARBON DIOXIDE (test code = 25 MEQ/L 220) CALCIUM (test code = 2209) 9.4 MG/DL PROTEIN, TOTAL (test code = 7.2 G/DL 2228) ALBUMIN (test code = 2201) 4.3 G/DL CALC GLOBULIN (test code = 2.9 G/DL 2239) CALC A/G RATIO (test code = 1.5 RATIO 2233) BILIRUBIN, TOTAL (test code = <0.2 MG/DL 2206) ALKALINE PHOSPHATASE (test 57 U/L code = 2204) AST (test code = 2218) 18 U/L ALT (test code = 2219) 16 U/L CBC W/AUTO [id number] 00:00:00 Test Item Value Reference Range Interpretation Comments WBC (test code = 1001) 5.5 K/UL RBC (test code = 1002) 3.87 M/UL HEMOGLOBIN (test code = 1003) 11.8 G/DL HEMATOCRIT (test code = 1004) 34.9 % MCV (test code = 1005) 90.2 fL MCH (test code = 1006) 30.5 PG MCHC (test code = 1007) 33.8 G/DL RDW (test code = 1038) 12.4 % NEUTROPHILS (test code = 1008) 53.7 % LYMPHOCYTES (test code = 1010) 30.6 % MONOCYTES (test code = 1011) 9.9 % EOSINOPHILS (test code = 1012) 4.9 % BASOPHILS (test code = 1013) 0.9 % PLATELET COUNT (test code = 1015) 274 K/UL CBC W/AUTO [id number] 00:00:00 Test Item Value Reference Range Interpretation Comments WBC (test code = 1001) 5.5 K/UL RBC (test code = 1002) 3.87 M/UL HEMOGLOBIN (test code = 1003) 11.8 G/DL HEMATOCRIT (test code = 1004) 34.9 % MCV (test code = 1005) 90.2 fL MCH (test code = 1006) 30.5 PG MCHC (test code = 1007) 33.8 G/DL RDW (test code = 1038) 12.4 % NEUTROPHILS (test code = 1008) 53.7 % LYMPHOCYTES (test code = 1010) 30.6 % MONOCYTES (test code = 1011) 9.9 % EOSINOPHILS (test code = 1012) 4.9 % BASOPHILS (test code = 1013) 0.9 % PLATELET COUNT (test code = 1015) 274 K/UL HEMOGLOBIN [id number] 00:00:00 Test Item Value Reference Range Interpretation Comments HEMOGLOBIN A1c (test code = 63176) 6.3 % HEMOGLOBIN [id number] 00:00:00 Test Item Value Reference Range Interpretation Comments HEMOGLOBIN A1c (test code = 88390) 6.3 % LIPID [id number] 00:00:00 Test Item Value Reference Range Interpretation Comments CHOLESTEROL (test code = 2210) 191 MG/DL TRIGLYCERIDES (test code = 2232) 168 MG/DL HDL CHOLESTEROL (test code = 2220) 50 MG/DL CALC LDL CHOL (test code = 2237) 113 MG/DL RISK RATIO LDL/HDL (test code = 2.26 RATIO 2238) COMPREHENSIVE METABOLIC [id number] 00:00:00 Test Item Value Reference Range Interpretation Comments GLUCOSE (test code = 2217) 107 MG/DL BUN (test code = 2208) 18 MG/DL CREATININE (test code = 2214) 0.66 MG/DL eGFR AMER. (test code 108 ML/MIN/1.73 = 14232) eGFR NON- AMER. (test 93 ML/MIN/1.73 code = 60914) CALC BUN/CREAT (test code = 27 RATIO 2235) SODIUM (test code = 2231) 139 MEQ/L POTASSIUM (test code = 2228) 4.2 MEQ/L CHLORIDE (test code = 2215) 103 MEQ/L CARBON DIOXIDE (test code = 25 MEQ/L 2205) CALCIUM (test code = 2209) 9.4 MG/DL PROTEIN, TOTAL (test code = 7.2 G/DL 2228) ALBUMIN (test code = 2201) 4.3 G/DL CALC GLOBULIN (test code = 2.9 G/DL 2240) CALC A/G RATIO (test code = 1.5 RATIO 4) BILIRUBIN, TOTAL (test code = <0.2 MG/DL 2206) ALKALINE PHOSPHATASE (test 57 U/L code = 2204) AST (test code = 2218) 18 U/L ALT (test code = 2219) 16 U/L CBC W/AUTO [id number] 00:00:00 Test Item Value Reference Range Interpretation Comments WBC (test code = 1001) 5.5 K/UL RBC (test code = 1002) 3.87 M/UL HEMOGLOBIN (test code = 1003) 11.8 G/DL HEMATOCRIT (test code = 1004) 34.9 % MCV (test code = 1005) 90.2 fL MCH (test code = 1006) 30.5 PG MCHC (test code = 1007) 33.8 G/DL RDW (test code = 1038) 12.4 % NEUTROPHILS (test code = 1008) 53.7 % LYMPHOCYTES (test code = 1010) 30.6 % MONOCYTES (test code = 1011) 9.9 % EOSINOPHILS (test code = 1012) 4.9 % BASOPHILS (test code = 1013) 0.9 % PLATELET COUNT (test code = 1015) 274 K/UL CBC W/AUTO [id number] 00:00:00 Test Item Value Reference Range Interpretation Comments WBC (test code = 1001) 5.5 K/UL RBC (test code = 1002) 3.87 M/UL HEMOGLOBIN (test code = 1003) 11.8 G/DL HEMATOCRIT (test code = 1004) 34.9 % MCV (test code = 1005) 90.2 fL MCH (test code = 1006) 30.5 PG MCHC (test code = 1007) 33.8 G/DL RDW (test code = 1038) 12.4 % NEUTROPHILS (test code = 1008) 53.7 % LYMPHOCYTES (test code = 1010) 30.6 % MONOCYTES (test code = 1011) 9.9 % EOSINOPHILS (test code = 1012) 4.9 % BASOPHILS (test code = 1013) 0.9 % PLATELET COUNT (test code = 1015) 274 K/UL HEMOGLOBIN [id number] 00:00:00 Test Item Value Reference Range Interpretation Comments HEMOGLOBIN A1c (test code = 10716) 6.3 % HEMOGLOBIN [id number] 00:00:00 Test Item Value Reference Range Interpretation Comments HEMOGLOBIN A1c (test code = 11488) 6.3 % LIPID [id number] 00:00:00 Test Item Value Reference Range Interpretation Comments CHOLESTEROL (test code = 2210) 191 MG/DL TRIGLYCERIDES (test code = 2232) 168 MG/DL HDL CHOLESTEROL (test code = 2220) 50 MG/DL CALC LDL CHOL (test code = 2237) 113 MG/DL RISK RATIO LDL/HDL (test code = 2.26 RATIO 2238) COMPREHENSIVE METABOLIC [id number] 00:00:00 Test Item Value Reference Range Interpretation Comments GLUCOSE (test code = 2217) 107 MG/DL BUN (test code = 2208) 18 MG/DL CREATININE (test code = 2214) 0.66 MG/DL eGFR AMER. (test code 108 ML/MIN/1.73 = 55112) eGFR NON- AMER. (test 93 ML/MIN/1.73 code = 06312) CALC BUN/CREAT (test code = 27 RATIO 2235) SODIUM (test code = 2231) 139 MEQ/L POTASSIUM (test code = 2228) 4.2 MEQ/L CHLORIDE (test code = 2215) 103 MEQ/L CARBON DIOXIDE (test code = 25 MEQ/L 220) CALCIUM (test code = 2209) 9.4 MG/DL PROTEIN, TOTAL (test code = 7.2 G/DL 2228) ALBUMIN (test code = 2201) 4.3 G/DL CALC GLOBULIN (test code = 2.9 G/DL 2240) CALC A/G RATIO (test code = 1.5 RATIO 2234) BILIRUBIN, TOTAL (test code = <0.2 MG/DL 2206) ALKALINE PHOSPHATASE (test 57 U/L code = 2204) AST (test code = 2218) 18 U/L ALT (test code = 2219) 16 U/L CBC W/AUTO [id number] 00:00:00 Test Item Value Reference Range Interpretation Comments WBC (test code = 1001) 5.5 K/UL RBC (test code = 1002) 3.87 M/UL HEMOGLOBIN (test code = 1003) 11.8 G/DL HEMATOCRIT (test code = 1004) 34.9 % MCV (test code = 1005) 90.2 fL MCH (test code = 1006) 30.5 PG MCHC (test code = 1007) 33.8 G/DL RDW (test code = 1038) 12.4 % NEUTROPHILS (test code = 1008) 53.7 % LYMPHOCYTES (test code = 1010) 30.6 % MONOCYTES (test code = 1011) 9.9 % EOSINOPHILS (test code = 1012) 4.9 % BASOPHILS (test code = 1013) 0.9 % PLATELET COUNT (test code = 1015) 274 K/UL CBC W/AUTO [id number] 00:00:00 Test Item Value Reference Range Interpretation Comments WBC (test code = 1001) 5.5 K/UL RBC (test code = 1002) 3.87 M/UL HEMOGLOBIN (test code = 1003) 11.8 G/DL HEMATOCRIT (test code = 1004) 34.9 % MCV (test code = 1005) 90.2 fL MCH (test code = 1006) 30.5 PG MCHC (test code = 1007) 33.8 G/DL RDW (test code = 1038) 12.4 % NEUTROPHILS (test code = 1008) 53.7 % LYMPHOCYTES (test code = 1010) 30.6 % MONOCYTES (test code = 1011) 9.9 % EOSINOPHILS (test code = 1012) 4.9 % BASOPHILS (test code = 1013) 0.9 % PLATELET COUNT (test code = 1015) 274 K/UL CBC W/AUTO [id number] 00:00:00 Test Item Value Reference Range Interpretation Comments WBC (test code = 1001) 5.5 K/UL RBC (test code = 1002) 3.87 M/UL HEMOGLOBIN (test code = 1003) 11.8 G/DL HEMATOCRIT (test code = 1004) 34.9 % MCV (test code = 1005) 90.2 fL MCH (test code = 1006) 30.5 PG MCHC (test code = 1007) 33.8 G/DL RDW (test code = 1038) 12.4 % NEUTROPHILS (test code = 1008) 53.7 % LYMPHOCYTES (test code = 1010) 30.6 % MONOCYTES (test code = 1011) 9.9 % EOSINOPHILS (test code = 1012) 4.9 % BASOPHILS (test code = 1013) 0.9 % PLATELET COUNT (test code = 1015) 274 K/UL HEMOGLOBIN [id number] 00:00:00 Test Item Value Reference Range Interpretation Comments HEMOGLOBIN A1c (test code = 05361) 6.3 % HEMOGLOBIN [id number] 00:00:00 Test Item Value Reference Range Interpretation Comments HEMOGLOBIN A1c (test code = 01967) 6.3 % HEMOGLOBIN [id number] 00:00:00 Test Item Value Reference Range Interpretation Comments HEMOGLOBIN A1c (test code = 24344) 6.3 % LIPID [id number] 00:00:00 Test Item Value Reference Range Interpretation Comments CHOLESTEROL (test code = 2210) 191 MG/DL TRIGLYCERIDES (test code = 2232) 168 MG/DL HDL CHOLESTEROL (test code = 2220) 50 MG/DL CALC LDL CHOL (test code = 2237) 113 MG/DL RISK RATIO LDL/HDL (test code = 2.26 RATIO 2238) LIPID [id number] 00:00:00 Test Item Value Reference Range Interpretation Comments CHOLESTEROL (test code = 2210) 191 MG/DL TRIGLYCERIDES (test code = 2232) 168 MG/DL HDL CHOLESTEROL (test code = 2220) 50 MG/DL CALC LDL CHOL (test code = 2237) 113 MG/DL RISK RATIO LDL/HDL (test code = 2.26 RATIO 2238) COMPREHENSIVE METABOLIC [id number] 00:00:00 Test Item Value Reference Range Interpretation Comments GLUCOSE (test code = 2217) 107 MG/DL BUN (test code = 2208) 18 MG/DL CREATININE (test code = 2214) 0.66 MG/DL eGFR AMER. (test code 108 ML/MIN/1.73 = 48407) eGFR NON- AMER. (test 93 ML/MIN/1.73 code = 12468) CALC BUN/CREAT (test code = 27 RATIO 2235) SODIUM (test code = 2231) 139 MEQ/L POTASSIUM (test code = 2228) 4.2 MEQ/L CHLORIDE (test code = 2215) 103 MEQ/L CARBON DIOXIDE (test code = 25 MEQ/L 2205) CALCIUM (test code = 2209) 9.4 MG/DL PROTEIN, TOTAL (test code = 7.2 G/DL 2228) ALBUMIN (test code = 2201) 4.3 G/DL CALC GLOBULIN (test code = 2.9 G/DL 2240) CALC A/G RATIO (test code = 1.5 RATIO 2234) BILIRUBIN, TOTAL (test code = <0.2 MG/DL 2206) ALKALINE PHOSPHATASE (test 57 U/L code = 2204) AST (test code = 2218) 18 U/L ALT (test code = 2219) 16 U/L COMPREHENSIVE METABOLIC [id number] 00:00:00 Test Item Value Reference Range Interpretation Comments GLUCOSE (test code = 2217) 107 MG/DL BUN (test code = 2208) 18 MG/DL CREATININE (test code = 2214) 0.66 MG/DL eGFR AMER. (test code 108 ML/MIN/1.73 = 54646) eGFR NON- AMER. (test 93 ML/MIN/1.73 code = 33239) CALC BUN/CREAT (test code = 27 RATIO 2235) SODIUM (test code = 2231) 139 MEQ/L POTASSIUM (test code = 2228) 4.2 MEQ/L CHLORIDE (test code = 2215) 103 MEQ/L CARBON DIOXIDE (test code = 25 MEQ/L 2205) CALCIUM (test code = 2209) 9.4 MG/DL PROTEIN, TOTAL (test code = 7.2 G/DL 2228) ALBUMIN (test code = 2201) 4.3 G/DL CALC GLOBULIN (test code = 2.9 G/DL 2240) CALC A/G RATIO (test code = 1.5 RATIO 2234) BILIRUBIN, TOTAL (test code = <0.2 MG/DL 2206) ALKALINE PHOSPHATASE (test 57 U/L code = 2204) AST (test code = 2218) 18 U/L ALT (test code = 2219) 16 U/L CBC W/AUTO [id number] 00:00:00 Test Item Value Reference Range Interpretation Comments WBC (test code = 1001) 5.5 K/UL RBC (test code = 1002) 3.87 M/UL HEMOGLOBIN (test code = 1003) 11.8 G/DL HEMATOCRIT (test code = 1004) 34.9 % MCV (test code = 1005) 90.2 fL MCH (test code = 1006) 30.5 PG MCHC (test code = 1007) 33.8 G/DL RDW (test code = 1038) 12.4 % NEUTROPHILS (test code = 1008) 53.7 % LYMPHOCYTES (test code = 1010) 30.6 % MONOCYTES (test code = 1011) 9.9 % EOSINOPHILS (test code = 1012) 4.9 % BASOPHILS (test code = 1013) 0.9 % PLATELET COUNT (test code = 1015) 274 K/UL CBC W/AUTO [id number] 00:00:00 Test Item Value Reference Range Interpretation Comments WBC (test code = 1001) 5.5 K/UL RBC (test code = 1002) 3.87 M/UL HEMOGLOBIN (test code = 1003) 11.8 G/DL HEMATOCRIT (test code = 1004) 34.9 % MCV (test code = 1005) 90.2 fL MCH (test code = 1006) 30.5 PG MCHC (test code = 1007) 33.8 G/DL RDW (test code = 1038) 12.4 % NEUTROPHILS (test code = 1008) 53.7 % LYMPHOCYTES (test code = 1010) 30.6 % MONOCYTES (test code = 1011) 9.9 % EOSINOPHILS (test code = 1012) 4.9 % BASOPHILS (test code = 1013) 0.9 % PLATELET COUNT (test code = 1015) 274 K/UL HEMOGLOBIN [id number] 00:00:00 Test Item Value Reference Range Interpretation Comments HEMOGLOBIN A1c (test code = 33321) 6.3 % HEMOGLOBIN [id number] 00:00:00 Test Item Value Reference Range Interpretation Comments HEMOGLOBIN A1c (test code = 52306) 6.3 % SARS-COV-2 (COVID19), NAAT [ADDED]2020-11-22 00:00:00 Test Item Value Reference Range Interpretation Comments SARS-CoV-2 INTERPRETATION (test POSITIVE code = 11586) SOURCE (test code = 55808) NOT SPECIFIED SARS-COV-2 (COVID19), NAAT [ADDED]2020-11-22 00:00:00 Test Item Value Reference Range Interpretation Comments SARS-CoV-2 INTERPRETATION (test POSITIVE code = 18626) SOURCE (test code = 96282) NOT SPECIFIED SARS-COV-2 (COVID19), NAAT [ADDED]2020-11-22 00:00:00 Test Item Value Reference Range Interpretation Comments SARS-CoV-2 INTERPRETATION (test POSITIVE code = 52013) SOURCE (test code = 19615) NOT SPECIFIED SARS-COV-2 (COVID19), NAAT [ADDED]2020-11-22 00:00:00 Test Item Value Reference Range Interpretation Comments SARS-CoV-2 INTERPRETATION (test POSITIVE code = 05545) SOURCE (test code = 23767) NOT SPECIFIED SARS-COV-2 (COVID19), NAAT [ADDED]2020-11-22 00:00:00 Test Item Value Reference Range Interpretation Comments SARS-CoV-2 INTERPRETATION (test POSITIVE code = 42444) SOURCE (test code = 99526) NOT SPECIFIED SARS-CoV-2 (COVID-19) by RT-PCR (HIGH RISK)2020-10-20 00:00:00 Test Item Value Reference Range Interpretation Comments SARS-CoV-2 INTERPRETATION NEGATIVE (test code = 84394) SOURCE (test code = 23939) NASOPHARYNGEAL SARS-CoV-2 (COVID-19) by RT-PCR (HIGH RISK)2020-10-20 00:00:00 Test Item Value Reference Range Interpretation Comments SARS-CoV-2 INTERPRETATION NEGATIVE (test code = 67553) SOURCE (test code = 89529) NASOPHARYNGEAL SARS-CoV-2 (COVID-19) by RT-PCR (HIGH RISK)2020-10-20 00:00:00 Test Item Value Reference Range Interpretation Comments SARS-CoV-2 INTERPRETATION NEGATIVE (test code = 02527) SOURCE (test code = 34813) NASOPHARYNGEAL SARS-CoV-2 (COVID-19) by RT-PCR (HIGH RISK)2020-10-20 00:00:00 Test Item Value Reference Range Interpretation Comments SARS-CoV-2 INTERPRETATION NEGATIVE (test code = 64725) SOURCE (test code = 04366) NASOPHARYNGEAL SARS-CoV-2 (COVID-19) by RT-PCR (HIGH RISK)2020-10-20 00:00:00 Test Item Value Reference Range Interpretation Comments SARS-CoV-2 INTERPRETATION NEGATIVE (test code = 27855) SOURCE (test code = 59478) NASOPHARYNGEAL HEMOGLOBIN [id number] 00:00:00 Test Item Value Reference Range Interpretation Comments HEMOGLOBIN A1c (test code = 45071) 6.3 % HEMOGLOBIN [id number] 00:00:00 Test Item Value Reference Range Interpretation Comments HEMOGLOBIN A1c (test code = 20617) 6.3 % COMPREHENSIVE METABOLIC [id number] 00:00:00 Test Item Value Reference Range Interpretation Comments GLUCOSE (test code = 2217) 132 MG/DL BUN (test code = 2208) 14 MG/DL CREATININE (test code = 2214) 0.72 MG/DL eGFR AMER. (test code 103 ML/MIN/1.73 = 48709) eGFR NON- AMER. (test 88 ML/MIN/1.73 code = 68638) CALC BUN/CREAT (test code = 19 RATIO 2235) SODIUM (test code = 2231) 142 MEQ/L POTASSIUM (test code = 2228) 4.4 MEQ/L CHLORIDE (test code = 2215) 105 MEQ/L CARBON DIOXIDE (test code = 22 MEQ/L 2205) CALCIUM (test code = 2209) 9.6 MG/DL PROTEIN, TOTAL (test code = 7.3 G/DL 2228) ALBUMIN (test code = 2201) 4.6 G/DL CALC GLOBULIN (test code = 2.7 G/DL 2240) CALC A/G RATIO (test code = 1.7 RATIO 2234) BILIRUBIN, TOTAL (test code = 0.4 MG/DL 2206) ALKALINE PHOSPHATASE (test 59 U/L code = 2204) AST (test code = 2218) 18 U/L ALT (test code = 2219) 15 U/L LIPID [id number] 00:00:00 Test Item Value Reference Range Interpretation Comments CHOLESTEROL (test code = 2210) 184 MG/DL TRIGLYCERIDES (test code = 2232) 95 MG/DL HDL CHOLESTEROL (test code = 2220) 56 MG/DL CALC LDL CHOL (test code = 2237) 109 MG/DL RISK RATIO LDL/HDL (test code = 1.95 RATIO 2238) HEMOGLOBIN [id number] 00:00:00 Test Item Value Reference Range Interpretation Comments HEMOGLOBIN A1c (test code = 24752) 6.3 % HEMOGLOBIN [id number] 00:00:00 Test Item Value Reference Range Interpretation Comments HEMOGLOBIN A1c (test code = 04815) 6.3 % COMPREHENSIVE METABOLIC [id number] 00:00:00 Test Item Value Reference Range Interpretation Comments GLUCOSE (test code = 2217) 132 MG/DL BUN (test code = 2208) 14 MG/DL CREATININE (test code = 2214) 0.72 MG/DL eGFR AMER. (test code 103 ML/MIN/1.73 = 26407) eGFR NON- AMER. (test 88 ML/MIN/1.73 code = 94505) CALC BUN/CREAT (test code = 19 RATIO 2235) SODIUM (test code = 2231) 142 MEQ/L POTASSIUM (test code = 2228) 4.4 MEQ/L CHLORIDE (test code = 2215) 105 MEQ/L CARBON DIOXIDE (test code = 22 MEQ/L 2205) CALCIUM (test code = 2209) 9.6 MG/DL PROTEIN, TOTAL (test code = 7.3 G/DL 2228) ALBUMIN (test code = 2201) 4.6 G/DL CALC GLOBULIN (test code = 2.7 G/DL 2239) CALC A/G RATIO (test code = 1.7 RATIO 2233) BILIRUBIN, TOTAL (test code = 0.4 MG/DL 2206) ALKALINE PHOSPHATASE (test 59 U/L code = 2204) AST (test code = 2218) 18 U/L ALT (test code = 2219) 15 U/L LIPID [id number] 00:00:00 Test Item Value Reference Range Interpretation Comments CHOLESTEROL (test code = 2210) 184 MG/DL TRIGLYCERIDES (test code = 2232) 95 MG/DL HDL CHOLESTEROL (test code = 2220) 56 MG/DL CALC LDL CHOL (test code = 2237) 109 MG/DL RISK RATIO LDL/HDL (test code = 1.95 RATIO 2238) HEMOGLOBIN [id number] 00:00:00 Test Item Value Reference Range Interpretation Comments HEMOGLOBIN A1c (test code = 98657) 6.3 % HEMOGLOBIN [id number] 00:00:00 Test Item Value Reference Range Interpretation Comments HEMOGLOBIN A1c (test code = 73417) 6.3 % COMPREHENSIVE METABOLIC [id number] 00:00:00 Test Item Value Reference Range Interpretation Comments GLUCOSE (test code = 2217) 132 MG/DL BUN (test code = 2208) 14 MG/DL CREATININE (test code = 2214) 0.72 MG/DL eGFR AMER. (test code 103 ML/MIN/1.73 = 29885) eGFR NON- AMER. (test 88 ML/MIN/1.73 code = 69613) CALC BUN/CREAT (test code = 19 RATIO 2235) SODIUM (test code = 2231) 142 MEQ/L POTASSIUM (test code = 2228) 4.4 MEQ/L CHLORIDE (test code = 2215) 105 MEQ/L CARBON DIOXIDE (test code = 22 MEQ/L 2206) CALCIUM (test code = 2209) 9.6 MG/DL PROTEIN, TOTAL (test code = 7.3 G/DL 222) ALBUMIN (test code = 2201) 4.6 G/DL CALC GLOBULIN (test code = 2.7 G/DL 2240) CALC A/G RATIO (test code = 1.7 RATIO 2234) BILIRUBIN, TOTAL (test code = 0.4 MG/DL 2206) ALKALINE PHOSPHATASE (test 59 U/L code = 220) AST (test code = 2218) 18 U/L ALT (test code = 2219) 15 U/L COMPREHENSIVE METABOLIC [id number] 00:00:00 Test Item Value Reference Range Interpretation Comments GLUCOSE (test code = 2217) 132 MG/DL BUN (test code = 2208) 14 MG/DL CREATININE (test code = 2214) 0.72 MG/DL eGFR AMER. (test code 103 ML/MIN/1.73 = 88541) eGFR NON- AMER. (test 88 ML/MIN/1.73 code = 72150) CALC BUN/CREAT (test code = 19 RATIO 2235) SODIUM (test code = 2231) 142 MEQ/L POTASSIUM (test code = 2228) 4.4 MEQ/L CHLORIDE (test code = 2215) 105 MEQ/L CARBON DIOXIDE (test code = 22 MEQ/L 2206) CALCIUM (test code = 2209) 9.6 MG/DL PROTEIN, TOTAL (test code = 7.3 G/DL 2228) ALBUMIN (test code = 2201) 4.6 G/DL CALC GLOBULIN (test code = 2.7 G/DL 2240) CALC A/G RATIO (test code = 1.7 RATIO 2234) BILIRUBIN, TOTAL (test code = 0.4 MG/DL 2206) ALKALINE PHOSPHATASE (test 59 U/L code = 2204) AST (test code = 2218) 18 U/L ALT (test code = 2219) 15 U/L LIPID [id number] 00:00:00 Test Item Value Reference Range Interpretation Comments CHOLESTEROL (test code = 2210) 184 MG/DL TRIGLYCERIDES (test code = 2232) 95 MG/DL HDL CHOLESTEROL (test code = 2220) 56 MG/DL CALC LDL CHOL (test code = 2237) 109 MG/DL RISK RATIO LDL/HDL (test code = 1.95 RATIO 2238) LIPID [id number] 00:00:00 Test Item Value Reference Range Interpretation Comments CHOLESTEROL (test code = 2210) 184 MG/DL TRIGLYCERIDES (test code = 2232) 95 MG/DL HDL CHOLESTEROL (test code = 2220) 56 MG/DL CALC LDL CHOL (test code = 2237) 109 MG/DL RISK RATIO LDL/HDL (test code = 1.95 RATIO 2238) HEMOGLOBIN [id number] 00:00:00 Test Item Value Reference Range Interpretation Comments HEMOGLOBIN A1c (test code = 18551) 6.3 % HEMOGLOBIN [id number] 00:00:00 Test Item Value Reference Range Interpretation Comments HEMOGLOBIN A1c (test code = 85916) 6.3 % HEMOGLOBIN [id number] 00:00:00 Test Item Value Reference Range Interpretation Comments HEMOGLOBIN A1c (test code = 91252) 6.3 % COMPREHENSIVE METABOLIC [id number] 00:00:00 Test Item Value Reference Range Interpretation Comments GLUCOSE (test code = 2217) 132 MG/DL BUN (test code = 2208) 14 MG/DL CREATININE (test code = 2214) 0.72 MG/DL eGFR AMER. (test code 103 ML/MIN/1.73 = 68545) eGFR NON- AMER. (test 88 ML/MIN/1.73 code = 30934) CALC BUN/CREAT (test code = 19 RATIO 2235) SODIUM (test code = 2231) 142 MEQ/L POTASSIUM (test code = 2228) 4.4 MEQ/L CHLORIDE (test code = 2215) 105 MEQ/L CARBON DIOXIDE (test code = 22 MEQ/L 2205) CALCIUM (test code = 2209) 9.6 MG/DL PROTEIN, TOTAL (test code = 7.3 G/DL 2228) ALBUMIN (test code = 220) 4.6 G/DL CALC GLOBULIN (test code = 2.7 G/DL 2240) CALC A/G RATIO (test code = 1.7 RATIO 2234) BILIRUBIN, TOTAL (test code = 0.4 MG/DL 2207) ALKALINE PHOSPHATASE (test 59 U/L code = 2204) AST (test code = 2218) 18 U/L ALT (test code = 2219) 15 U/L LIPID [id number] 00:00:00 Test Item Value Reference Range Interpretation Comments CHOLESTEROL (test code = 2210) 184 MG/DL TRIGLYCERIDES (test code = 2232) 95 MG/DL HDL CHOLESTEROL (test code = 2220) 56 MG/DL CALC LDL CHOL (test code = 2237) 109 MG/DL RISK RATIO LDL/HDL (test code = 1.95 RATIO 2238) SARS-CoV-2 (COVID-19) by RT-PCR (HIGH RISK)2020-07-14 00:00:00 Test Item Value Reference Range Interpretation Comments SARS-CoV-2 INTERPRETATION (test NEGATIVE code = 07401) SOURCE (test code = 05967) NOT SPECIFIED SARS-CoV-2 (COVID-19) by RT-PCR (HIGH RISK)2020-07-14 00:00:00 Test Item Value Reference Range Interpretation Comments SARS-CoV-2 INTERPRETATION (test NEGATIVE code = 90895) SOURCE (test code = 86713) NOT SPECIFIED SARS-CoV-2 (COVID-19) by RT-PCR (HIGH RISK)2020-07-14 00:00:00 Test Item Value Reference Range Interpretation Comments SARS-CoV-2 INTERPRETATION (test NEGATIVE code = 19376) SOURCE (test code = 56381) NOT SPECIFIED SARS-CoV-2 (COVID-19) by RT-PCR (HIGH RISK)2020-07-14 00:00:00 Test Item Value Reference Range Interpretation Comments SARS-CoV-2 INTERPRETATION (test NEGATIVE code = 16793) SOURCE (test code = 53815) NOT SPECIFIED SARS-CoV-2 (COVID-19) by RT-PCR (HIGH RISK)2020-07-14 00:00:00 Test Item Value Reference Range Interpretation Comments SARS-CoV-2 INTERPRETATION (test NEGATIVE code = 86333) SOURCE (test code = 58326) NOT SPECIFIED SARS-CoV-2 (COVID-19) by RT-PCR (HIGH RISK)2020-05-20 00:00:00 Test Item Value Reference Range Interpretation Comments SARS-CoV-2 INTERPRETATION (test NEGATIVE code = 27206) SOURCE (test code = 70248) NOT SPECIFIED SARS-CoV-2 (COVID-19) by RT-PCR (HIGH RISK)2020-05-20 00:00:00 Test Item Value Reference Range Interpretation Comments SARS-CoV-2 INTERPRETATION (test NEGATIVE code = 89403) SOURCE (test code = 65953) NOT SPECIFIED SARS-CoV-2 (COVID-19) by RT-PCR (HIGH RISK)2020-05-20 00:00:00 Test Item Value Reference Range Interpretation Comments SARS-CoV-2 INTERPRETATION (test NEGATIVE code = 29103) SOURCE (test code = 46984) NOT SPECIFIED SARS-CoV-2 (COVID-19) by RT-PCR (HIGH RISK)2020-05-20 00:00:00 Test Item Value Reference Range Interpretation Comments SARS-CoV-2 INTERPRETATION (test NEGATIVE code = 79765) SOURCE (test code = 67242) NOT SPECIFIED SARS-CoV-2 (COVID-19) by RT-PCR (HIGH RISK)2020-05-20 00:00:00 Test Item Value Reference Range Interpretation Comments SARS-CoV-2 INTERPRETATION (test NEGATIVE code = 85945) SOURCE (test code = 01739) NOT SPECIFIED HEMOGLOBIN [id number] 00:00:00 Test Item Value Reference Range Interpretation Comments HEMOGLOBIN A1c (test code = 93570) 6.3 % HEMOGLOBIN [id number] 00:00:00 Test Item Value Reference Range Interpretation Comments HEMOGLOBIN A1c (test code = 12531) 6.3 % HEMOGLOBIN [id number] 00:00:00 Test Item Value Reference Range Interpretation Comments HEMOGLOBIN A1c (test code = 75687) 6.3 % HEMOGLOBIN [id number] 00:00:00 Test Item Value Reference Range Interpretation Comments HEMOGLOBIN A1c (test code = 94890) 6.3 % HEMOGLOBIN [id number] 00:00:00 Test Item Value Reference Range Interpretation Comments HEMOGLOBIN A1c (test code = 51710) 6.3 % HEMOGLOBIN [id number] 00:00:00 Test Item Value Reference Range Interpretation Comments HEMOGLOBIN A1c (test code = 23247) 6.3 % HEMOGLOBIN [id number] 00:00:00 Test Item Value Reference Range Interpretation Comments HEMOGLOBIN A1c (test code = 63653) 6.3 % HEMOGLOBIN [id number] 00:00:00 Test Item Value Reference Range Interpretation Comments HEMOGLOBIN A1c (test code = 13011) 6.3 % HEMOGLOBIN [id number] 00:00:00 Test Item Value Reference Range Interpretation Comments HEMOGLOBIN A1c (test code = 43034) 6.3 % COMPREHENSIVE METABOLIC [id number] 00:00:00 Test Item Value Reference Range Interpretation Comments GLUCOSE (test code = 2217) 120 MG/DL BUN (test code = 2208) 12 MG/DL CREATININE (test code = 2214) 0.74 MG/DL eGFR AMER. (test code 100 ML/MIN/1.73 = 33971) eGFR NON- AMER. (test 86 ML/MIN/1.73 code = 49517) CALC BUN/CREAT (test code = 16 RATIO 5) SODIUM (test code = 2231) 141 MEQ/L POTASSIUM (test code = 2228) 4.7 MEQ/L CHLORIDE (test code = 2215) 103 MEQ/L CARBON DIOXIDE (test code = 26 MEQ/L 2205) CALCIUM (test code = 2209) 9.2 MG/DL PROTEIN, TOTAL (test code = 7.3 G/DL 2228) ALBUMIN (test code = 2201) 4.6 G/DL CALC GLOBULIN (test code = 2.7 G/DL 2239) CALC A/G RATIO (test code = 1.7 RATIO 4) BILIRUBIN, TOTAL (test code = 0.4 MG/DL 2206) ALKALINE PHOSPHATASE (test 61 U/L code = 2204) AST (test code = 2218) 15 U/L ALT (test code = 2219) 11 U/L LIPID [id number] 00:00:00 Test Item Value Reference Range Interpretation Comments CHOLESTEROL (test code = 2210) 222 MG/DL TRIGLYCERIDES (test code = 2232) 132 MG/DL HDL CHOLESTEROL (test code = 2220) 55 MG/DL CALC LDL CHOL (test code = 2237) 141 MG/DL RISK RATIO LDL/HDL (test code = 2.56 RATIO 2238) COMPREHENSIVE METABOLIC [id number] 00:00:00 Test Item Value Reference Range Interpretation Comments GLUCOSE (test code = 2217) 120 MG/DL BUN (test code = 2208) 12 MG/DL CREATININE (test code = 2214) 0.74 MG/DL eGFR AMER. (test code 100 ML/MIN/1.73 = 44640) eGFR NON- AMER. (test 86 ML/MIN/1.73 code = 70384) CALC BUN/CREAT (test code = 16 RATIO 2235) SODIUM (test code = 2231) 141 MEQ/L POTASSIUM (test code = 2228) 4.7 MEQ/L CHLORIDE (test code = 2215) 103 MEQ/L CARBON DIOXIDE (test code = 26 MEQ/L 2205) CALCIUM (test code = 2209) 9.2 MG/DL PROTEIN, TOTAL (test code = 7.3 G/DL 2228) ALBUMIN (test code = 2201) 4.6 G/DL CALC GLOBULIN (test code = 2.7 G/DL 2239) CALC A/G RATIO (test code = 1.7 RATIO 2234) BILIRUBIN, TOTAL (test code = 0.4 MG/DL 2206) ALKALINE PHOSPHATASE (test 61 U/L code = 2204) AST (test code = 2218) 15 U/L ALT (test code = 2219) 11 U/L LIPID [id number] 00:00:00 Test Item Value Reference Range Interpretation Comments CHOLESTEROL (test code = 2210) 222 MG/DL TRIGLYCERIDES (test code = 2232) 132 MG/DL HDL CHOLESTEROL (test code = 2220) 55 MG/DL CALC LDL CHOL (test code = 2237) 141 MG/DL RISK RATIO LDL/HDL (test code = 2.56 RATIO 2238) COMPREHENSIVE METABOLIC [id number] 00:00:00 Test Item Value Reference Range Interpretation Comments GLUCOSE (test code = 2217) 120 MG/DL BUN (test code = 2208) 12 MG/DL CREATININE (test code = 2214) 0.74 MG/DL eGFR AMER. (test code 100 ML/MIN/1.73 = 45472) eGFR NON- AMER. (test 86 ML/MIN/1.73 code = 53833) CALC BUN/CREAT (test code = 16 RATIO 2235) SODIUM (test code = 2231) 141 MEQ/L POTASSIUM (test code = 2228) 4.7 MEQ/L CHLORIDE (test code = 2215) 103 MEQ/L CARBON DIOXIDE (test code = 26 MEQ/L 2205) CALCIUM (test code = 2209) 9.2 MG/DL PROTEIN, TOTAL (test code = 7.3 G/DL 2228) ALBUMIN (test code = 2201) 4.6 G/DL CALC GLOBULIN (test code = 2.7 G/DL 2240) CALC A/G RATIO (test code = 1.7 RATIO 2234) BILIRUBIN, TOTAL (test code = 0.4 MG/DL 2206) ALKALINE PHOSPHATASE (test 61 U/L code = 2204) AST (test code = 2218) 15 U/L ALT (test code = 2219) 11 U/L LIPID [id number] 00:00:00 Test Item Value Reference Range Interpretation Comments CHOLESTEROL (test code = 2210) 222 MG/DL TRIGLYCERIDES (test code = 2232) 132 MG/DL HDL CHOLESTEROL (test code = 2220) 55 MG/DL CALC LDL CHOL (test code = 2237) 141 MG/DL RISK RATIO LDL/HDL (test code = 2.56 RATIO 2238) LIPID [id number] 00:00:00 Test Item Value Reference Range Interpretation Comments CHOLESTEROL (test code = 2210) 222 MG/DL TRIGLYCERIDES (test code = 2232) 132 MG/DL HDL CHOLESTEROL (test code = 2220) 55 MG/DL CALC LDL CHOL (test code = 2237) 141 MG/DL RISK RATIO LDL/HDL (test code = 2.56 RATIO 2238) COMPREHENSIVE METABOLIC [id number] 00:00:00 Test Item Value Reference Range Interpretation Comments GLUCOSE (test code = 2217) 120 MG/DL BUN (test code = 2208) 12 MG/DL CREATININE (test code = 2214) 0.74 MG/DL eGFR AMER. (test code 100 ML/MIN/1.73 = 34778) eGFR NON- AMER. (test 86 ML/MIN/1.73 code = 57632) CALC BUN/CREAT (test code = 16 RATIO 2235) SODIUM (test code = 2231) 141 MEQ/L POTASSIUM (test code = 2228) 4.7 MEQ/L CHLORIDE (test code = 2215) 103 MEQ/L CARBON DIOXIDE (test code = 26 MEQ/L 6) CALCIUM (test code = 2209) 9.2 MG/DL PROTEIN, TOTAL (test code = 7.3 G/DL 2228) ALBUMIN (test code = 2201) 4.6 G/DL CALC GLOBULIN (test code = 2.7 G/DL 2240) CALC A/G RATIO (test code = 1.7 RATIO 2234) BILIRUBIN, TOTAL (test code = 0.4 MG/DL 220) ALKALINE PHOSPHATASE (test 61 U/L code = 2204) AST (test code = 2218) 15 U/L ALT (test code = 2219) 11 U/L COMPREHENSIVE METABOLIC [id number] 00:00:00 Test Item Value Reference Range Interpretation Comments GLUCOSE (test code = 2217) 120 MG/DL BUN (test code = 2208) 12 MG/DL CREATININE (test code = 2214) 0.74 MG/DL eGFR AMER. (test code 100 ML/MIN/1.73 = 34389) eGFR NON- AMER. (test 86 ML/MIN/1.73 code = 52927) CALC BUN/CREAT (test code = 16 RATIO 2235) SODIUM (test code = 2231) 141 MEQ/L POTASSIUM (test code = 2228) 4.7 MEQ/L CHLORIDE (test code = 2215) 103 MEQ/L CARBON DIOXIDE (test code = 26 MEQ/L 2205) CALCIUM (test code = 2209) 9.2 MG/DL PROTEIN, TOTAL (test code = 7.3 G/DL 2228) ALBUMIN (test code = 2201) 4.6 G/DL CALC GLOBULIN (test code = 2.7 G/DL 2240) CALC A/G RATIO (test code = 1.7 RATIO 2234) BILIRUBIN, TOTAL (test code = 0.4 MG/DL 7) ALKALINE PHOSPHATASE (test 61 U/L code = 2204) AST (test code = 2218) 15 U/L ALT (test code = 2219) 11 U/L LIPID [id number] 00:00:00 Test Item Value Reference Range Interpretation Comments CHOLESTEROL (test code = 2210) 222 MG/DL TRIGLYCERIDES (test code = 2232) 132 MG/DL HDL CHOLESTEROL (test code = 2220) 55 MG/DL CALC LDL CHOL (test code = 2237) 141 MG/DL RISK RATIO LDL/HDL (test code = 2.56 RATIO 2238) HEMOGLOBIN [id number] 00:00:00 Test Item Value Reference Range Interpretation Comments HEMOGLOBIN A1c (test code = 96101) 6.4 % HEMOGLOBIN [id number] 00:00:00 Test Item Value Reference Range Interpretation Comments HEMOGLOBIN A1c (test code = 95935) 6.4 % HEMOGLOBIN [id number] 00:00:00 Test Item Value Reference Range Interpretation Comments HEMOGLOBIN A1c (test code = 05459) 6.4 % HEMOGLOBIN [id number] 00:00:00 Test Item Value Reference Range Interpretation Comments HEMOGLOBIN A1c (test code = 44988) 6.4 % HEMOGLOBIN [id number] 00:00:00 Test Item Value Reference Range Interpretation Comments HEMOGLOBIN A1c (test code = 63257) 6.4 % HEMOGLOBIN [id number] 00:00:00 Test Item Value Reference Range Interpretation Comments HEMOGLOBIN A1c (test code = 26091) 6.4 % HEMOGLOBIN [id number] 00:00:00 Test Item Value Reference Range Interpretation Comments HEMOGLOBIN A1c (test code = 49087) 6.4 % HEMOGLOBIN [id number] 00:00:00 Test Item Value Reference Range Interpretation Comments HEMOGLOBIN A1c (test code = 54566) 6.4 % HEMOGLOBIN [id number] 00:00:00 Test Item Value Reference Range Interpretation Comments HEMOGLOBIN A1c (test code = 01933) 6.4 %
[2022-12-26] MEDS ORDERED: MECLIZINE HCL 12.5 MG TAB ONE (13:50)
[2022-12-26] MEDS ORDERED: NA CHLORIDE 0.9% 1,000 ML ONE (13:51)
--- NOTE | 2022-12-26 14:22 | RAD REPORT ---
EXAM DESCRIPTION: CT - Head Brain Wo Cont - 12/26/2022 2:00 pm CLINICAL HISTORY: DIZZINESS COMPARISON: No comparisons TECHNIQUE: All CT scans are performed using dose optimization technique as appropriate and may inclu de automated exposure control or mA/KV adjustment according to patient size. FINDINGS: No intracranial hemorrhage, hydrocephalus or extra-axial fluid collection.No areas of brai n edema or evidence of midline shift. The paranasal sinuses and mastoids are clear. The calvarium is intact. IMPRESSION: No acute intracranial abnormality.
[2022-12-26] MEDS ORDERED: ONDANSETRON 4 MG/2 ML VIAL ONE (14:36)
[2022-12-26 14:39] LABS: Absolute Lymphocytes (CBC) 1.6 K/uL (0.7-4.9); Hematocrit 35.2 % (36.0-45.0); MCV 89.3 fL (80-100); MPV 8.4 fL (7.6-11.3); RBC Red Blood Cell Count 3.95 M/uL (3.86-4.86)
[2022-12-26 14:55] LABS: Potassium 4.3 mmol/L (3.5-5.1); Troponin High Sensitivity 4.4 pg/mL (<58.9)
--- NOTE | 2022-12-26 15:46 | ER ---
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 VS per school nurse are: 121/78, HR 67, O2 sat 98%, and FSBG 219. Pt also reports nausea. Coronavirus screen: At this time, the client does not indicate any symptoms associated with coronavirus-19. Ebola Screen: Patient denies travel to an Ebola-affected area in the 21 days before illness onset. Initial Sepsis Screen: Does the patient meet any 2 criteria? No. Patient's initial sepsis screen is negative. Does the patient have a suspected source of infection? No. Patient's initial sepsis screen is negative. Risk Assessment: Do you want to hurt yourself or someone else? Patient reports no desire to harm self or others. Onset of symptoms was December 2022. 12:44 Acuity: CHRISTINA 3 aa5 12:44 Method Of Arrival: Wheelchair aa5 Historical: - Allergies: 12:46 NKDA; aa5 - PMHx: 12:46 diabetes mellitus; Hypertensive disorder; Hypercholesterolemia; ectopic ; aa5 - PSHx: 12:46 hysterectomy; aa5 12:46 sx for eye droop; aa5 - Immunization history:: Adult Immunizations unknown. - Social history:: Smoking status: Patient denies any tobacco usage or history of. Screenin:58 [facility] ED Fall Risk Assessment (Adult) History of falling in the last 3 months, db including since admission No falls in past 3 months (0 pts) Confusion or Disorientation No (0 pts) Intoxicated or Sedated No (0 pts) Impaired Gait No (0 pts) Mobility Assist Device Used No (0 pt) Altered Elimination No (0 pt) Score/Fall Risk Level 0 - 2 = Low Risk Oriented to surroundings, Maintained a safe environment, Educated pt \\T\\ family on fall prevention, incl call for assistance when getting out of bed. Abuse screen: Denies threats or abuse. Denies injuries from another. Nutritional screening: No deficits noted. Tuberculosis screening: No symptoms or risk factors identified. Assessment: 12:56 Reassessment: Patient appears in no apparent distress at this time. Patient and/or db family updated on plan of care and expected duration. Pain level reassessed. Patient is alert, oriented x 3, equal unlabored respirations, skin warm/dry/pink. complains of dizziness that started yesterday while working. Denies syncope. States feels pulsing in ears. Denies chest pain. States did feel nausea. General: Appears in no apparent distress. comfortable, Behavior is calm, cooperative. Pain: Complains of pain in head. Neuro: Level of Consciousness is awake, alert, obeys commands, Oriented to person, place, time, Speech is normal, Facial symmetry appears normal, Pupils are PERRLA, Reports dizziness, since yesterday. Cardiovascular: No deficits noted. Denies chest pain, shortness of breath. Respiratory: Airway is patent Respiratory effort is even, unlabored, Respiratory pattern is regular, symmetrical, Breath sounds are clear bilaterally. GI: No deficits noted. No signs and/or symptoms were reported involving the gastrointestinal system. : No deficits noted. No signs and/or symptoms were reported regarding the genitourinary system. 14:00 Reassessment: Patient appears in no apparent distress at this time. Patient and/or kr3 family updated on plan of care and expected duration. Pain level reassessed. 15:01 Reassessment: Patient appears in no apparent distress at this time. Patient and/or kr3 family updated on plan of care and expected duration. Pain level reassessed. still complaining of dizziness. Vital Signs: 12:44 BP 146 / 90; Pulse 59; Resp 16 S; Temp 97.3(TE); Pulse Ox 100% on R/A; Weight 78.93 kg aa5 (R); Height 5 ft. 3 in. (160.02 cm) (R); 12:56 BP 136 / 85; Pulse 59; Resp 18; Pulse Ox 100% on R/A; db 14:00 BP 142 / 77; Pulse 55; Resp 16; Pulse Ox 99% ; kr3 15:00 BP 153 / 80; Pulse 52; Resp 18; Pulse Ox 100% on R/A; kr3 16:00 BP 123 / 62; Pulse 78; Resp 18; Pulse Ox 100% on R/A; kr3 12:44 Body Mass Index 30.82 (78.93 kg, 160.02 cm) aa5 ED Course: 12:39 Patient arrived in ED. am2 12:41 Chanelle Johnson NP is PHCP. aj3 12:41 Jagjit Marshall MD is Attending Physician. aj3 12:46 Triage completed. aa5 12:46 Arm band placed on. aa5 12:58 Patient has correct armband on for positive identification. Bed in low position. Call db light in reach. Side rails up X2. Pulse ox on. NIBP on. 13:22 Freida Beltran, MARVIN is Primary Nurse. kr3 14:02 CT Head Brain wo Cont In Process Unspecified. EDMS 14:29 Inserted saline lock: 22 gauge in left antecubital area, using aseptic technique. Blood kr3 collected. 14:52 EKG done, by ED staff. tm3 16:07 No provider procedures requiring assistance completed. IV discontinued, intact, kr3 bleeding controlled, No redness/swelling at site. Pressure dressing applied. Administered Medications: 13:54 Drug: Meclizine 25 mg Route: PO; kr3 16:07 Follow up: Response: No adverse reaction kr3 14:29 Drug: NS 0.9% 1000 ml Route: IV; Rate: 1 bolus; Site: left antecubital; kr3 16:08 Follow up: Response: No adverse reaction; IV Status: Completed infusion; IV Intake: kr3 1000ml 14:42 Drug: Zofran (Ondansetron) 4 mg Route: IVP; Site: left antecubital; kr3 16:07 Follow up: Response: No adverse reaction kr3 Medication: 16:07 VIS not applicable for this client. kr3 Intake: 16:08 IV: 1000ml; Total: 1000ml. kr3 Outcome: 15:45 Discharge ordered by . aj3 16:05 Patient left the ED. kr3 16:07 Discharged to home ambulatory. kr3 16:07 Condition: stable 16:07 Discharge instructions given to patient, Instructed on discharge instructions, follow up and referral plans. Demonstrated understanding of instructions, follow-up care. Signatures: Dispatcher [employer] EDSreekanth Dent tm3 Gillian Berrios RN RN aa5 Chanelle Manjarrez am2 Freida Beltran, MARVIN RN kr3 Chanelle Johnson, BOAT WORKER BOAT WORKER aj3 Gricelda Maria RN RN db Corrections: (The following items were deleted from the chart) 12:47 12:46 Allergies: No Known Allergies; aa5 aa5
--- NOTE | 2022-12-26 15:46 | EDPHYS ---
Physician Documentation [facility] Name: Nataliia Singer Age: 67 yrs Sex: Female : 1955 Arrival Date: 12/26/2022 Time: 12:39 Bed 13 Private MD: ED Physician Jagjit Marshall HPI: 12/26 14:29 This 67 yrs old Female presents to ER via Wheelchair with complaints of aj3 Dizziness. 14:29 Patient with PMH of diabetes, hypertension and hyperlipidemia reporting dizziness that aj3 started this morning while at work associated with pressure in ears. She describes the dizziness as feeling off balance whenever she tries to turn and look at direction. She denies feeling like the room is spinning. She also reported some nausea but denies any vomiting. No reports of chest pain, shortness of breath, fever, chills, change in vision, numbness/tingling or change in speech.. Historical: - Allergies: 12:46 NKDA; aa5 - PMHx: 12:46 diabetes mellitus; Hypertensive disorder; Hypercholesterolemia; ectopic ; aa5 - PSHx: 12:46 hysterectomy; aa5 12:46 sx for eye droop; aa5 - Immunization history:: Adult Immunizations unknown. - Social history:: Smoking status: Patient denies any tobacco usage or history of. ROS: 14:31 Constitutional: Negative for fever, chills, and weight loss, Cardiovascular: Negative aj3 for chest pain, palpitations, and edema, Respiratory: Negative for shortness of breath, cough, wheezing, and pleuritic chest pain, MS/Extremity: Negative for injury and deformity, Skin: Negative for injury, rash, and discoloration. 14:31 Abdomen/GI: Positive for nausea, Negative for abdominal pain, vomiting, diarrhea. 14:31 Neuro: Positive for dizziness, Negative for headache, hearing loss, loss of consciousness, numbness, syncope, tingling, weakness. Exam: 14:31 Constitutional: This is a well developed, well nourished patient who is awake, alert, aj3 and in no acute distress. Head/Face: Normocephalic, atraumatic. Eyes: Pupils equal round and reactive to light, extra-ocular motions intact. Lids and lashes normal. Conjunctiva and sclera are non-icteric and not injected. Cornea within normal limits. Periorbital areas with no swelling, redness, or edema. Neck: Trachea midline and no cervical lymphadenopathy. Supple, full range of motion without nuchal rigidity. Cardiovascular: Regular rate and rhythm with a normal S1 and S2. No gallops, murmurs, or rubs. Normal PMI, no JVD. No pulse deficits. Respiratory: Lungs have equal breath sounds bilaterally, clear to auscultation and percussion. No rales, rhonchi or wheezes noted. No increased work of breathing, no retractions or nasal flaring. Abdomen/GI: Soft, non-tender, with normal bowel sounds. No distension or tympany. No guarding or rebound. No evidence of tenderness throughout. Skin: Warm, dry with normal turgor. Normal color with no rashes, no lesions, and no evidence of cellulitis. MS/ Extremity: Pulses equal, no cyanosis. Neurovascular intact. Full, normal range of motion. 14:31 Neuro: Orientation: is normal, to person, place \T\ time. Mentation: is normal, no acute changes, Cranial nerves: CN II- XII are normal as tested, Cerebellar function: is grossly normal. 14:51 ECG was reviewed by the Attending Physician. aj3 Vital Signs: 12:44 BP 146 / 90; Pulse 59; Resp 16 S; Temp 97.3(TE); Pulse Ox 100% on R/A; Weight 78.93 kg aa5 (R); Height 5 ft. 3 in. (160.02 cm) (R); 12:56 BP 136 / 85; Pulse 59; Resp 18; Pulse Ox 100% on R/A; db 14:00 BP 142 / 77; Pulse 55; Resp 16; Pulse Ox 99% ; kr3 15:00 BP 153 / 80; Pulse 52; Resp 18; Pulse Ox 100% on R/A; kr3 16:00 BP 123 / 62; Pulse 78; Resp 18; Pulse Ox 100% on R/A; kr3 12:44 Body Mass Index 30.82 (78.93 kg, 160.02 cm) aa5 MDM: 13:04 Patient medically screened. aj3 14:31 Differential diagnosis: cardiac arrhythmia, CVA, head injury, hypovolemia, vertigo. aj3 Independent interpretation of the following test(s) in the Emergency Department CT Scan: My interpretation is No acute bleed noted. 15:42 Data reviewed: vital signs, nurses notes, lab test result(s), EKG, radiologic studies, CT scan. Consideration of Admission/Observation No admission warranted today, on reassessment, patient no longer dizzy and reports resolution in symptoms. 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 Historians other than the Patient: Family Member: Granddaughter. Care significantly affected by the following chronic conditions: Diabetes, Hypertension. Counseling: I had a detailed discussion with the patient and/or guardian regarding: the historical points, exam findings, and any diagnostic results supporting the discharge/admit diagnosis, lab results, radiology results. Medication response: Zofran relieved the patient's nausea. Response to treatment: the patient's symptoms have resolved after treatment, the patient is now symptom free. ED course: Based on ED work-up and reassessment, patient is cleared to go home. Patient reports feeling much better after medications given in the ED. Discharge patient with supportive measures, follow-up and ER return precautions.. 12/26 13:38 Order name: Basic Metabolic Panel; Complete Time: 15:12 12/26 13:38 Order name: CBC with Diff; Complete Time: 14:50 12/26 13:38 Order name: CT Head Brain wo Cont; Complete Time: 14:29 12/26 13:38 Order name: Troponin HS; Complete Time: 15:12 12/26 13:38 Order name: EKG; Complete Time: 13:39 12/26 13:38 Order name: Cardiac monitoring; Complete Time: 14:43 12/26 13:38 Order name: EKG - Nurse/Tech; Complete Time: 15:25 12/26 13:38 Order name: IV Saline Lock; Complete Time: 14:29 12/26 13:38 Order name: Labs collected and sent; Complete Time: 14:29 12/26 13:38 Order name: O2 Per Protocol; Complete Time: 14:29 12/26 13:38 Order name: O2 Sat Monitoring; Complete Time: 14:29 EC:49 Rate is 52 beats/min. Rhythm is regular. QRS [place] is Normal. QRS interval is normal. QT aj3 interval is normal. T waves are Normal. No ST changes noted. Clinical impression: Sinus bradycardia. Administered Medications: 13:54 Drug: Meclizine 25 mg Route: PO; kr3 16:07 Follow up: Response: No adverse reaction kr3 14:29 Drug: NS 0.9% 1000 ml Route: IV; Rate: 1 bolus; Site: left antecubital; kr3 16:08 Follow up: Response: No adverse reaction; IV Status: Completed infusion; IV Intake: kr3 1000ml 14:42 Drug: Zofran (Ondansetron) 4 mg Route: IVP; Site: left antecubital; kr3 16:07 Follow up: Response: No adverse reaction kr3 Disposition: 17:46 Co-signature as Attending Physician, Jagjit Marshall MD I reviewed the patient's care rt provided by the Advanced Practice Provider and agree with the diagnosis and treatment plan. Disposition Summary: 12/26/22 15:45 Discharge Ordered Location: Home aj3 Condition: Stable aj3 Problem: new aj3 Symptoms: are resolved aj3 Diagnosis - Dizziness and giddiness aj3 - Bradycardia, unspecified aj3 Followup: aj3 - With: Private Physician - When: - Reason: Recheck today's complaints, Re-evaluation by your physician Followup: aj3 - With: Emergency Department - When: - Reason: If symptoms return Discharge Instructions: - Discharge Summary Sheet aj3 - Dizziness aj3 Forms: - Medication Reconciliation Form aj3 - Thank You Letter aj3 - Antibiotic Education aj3 - Work release form aj3 - Prescription Opioid Use aj3 Signatures: Dispatcher [employer] EDLA Gillian Berrios RN RN aa5 Freida Beltran RN RN kr3 Chanelle Johnson, ASSOCIATE PROFESSOR OF ART ASSOCIATE PROFESSOR OF ART aj3 Jagjit Marshall MD MD rt Corrections: (The following items were deleted from the chart) 12:47 12:46 Allergies: No Known Allergies; yamila driscoll
[2022-12-26 16:15] VITALS: TEMP 97.3
[2022-12-26 16:32] VITALS: BP 153/80; O2SAT 100
== END 2022-12-26 16:05 | disposition home or self-care (01) ==
LOC: ER 12:38
DX: R42 Dizziness and giddiness (principal); R00.1 Bradycardia, unspecified; E11.9 Type 2 diabetes mellitus without complications; I10 Essential (primary) hypertension
CPT/HCPCS: 96361; 85025; 80048; 36415; 84484; 70450; 96374; 99284; J8597; J7030; J2405; 93005